=== PATIENT | male | born 1930 | race Caucasian/White ===

== ENCOUNTER 2017-06-12 07:44 | Inpatient (IN) | payer OTHER, BC ==
[2017-06-12 07:59] VITALS: BMI 21.9
[2017-06-12] MEDS ORDERED: SODIUM CHLORIDE 0.9% 1000 ML INFUS.BAG IV STA (08:00)
--- NOTE | 2017-06-12 08:00 | PDOC ---
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 Presented in Afib with RVR and pressures in the high 90s systolic. States that he was at home walking and believes that he tripped because of his right leg shortness. He fell forward and to his left hitting his knee, elbow, head then rolling and hitting the other side of his head. 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 He does admit to increasingly worse SOB over an unknown time period but denies increasing his O2. Denies actual syncope, palpitations, lightheadedness, chest pain, worsened shortness of breath, or recent sick symptoms. Of note, he was scheduled to have his pacemaker battery replacement today at [facility]. PCP: Alicia (switched last month ). Sales Performance Manager is Dr. Reilly.. Pulm is Ruth. 06/12/17 08:14 Past History - Past Medical History Allergies/Adverse Reactions: Allergies Allergy/AdvReac Type Severity Reaction Status Date / Time Penicillins Allergy Intermediate Rash Verified 06/12/17 07:56 Home Medications: Ambulatory Orders Albuterol Sulfate Inhaler - [Ventolin HFA Inhaler -] 2 inh PO Q4H 10/29/13 Tiotropium [place] [Spiriva -] 18 mcg IH DAILY 11/19/14 Dabigatran Etexilate Mesylate [Pradaxa -] 150 mg PO BID 06/12/17 Metoprolol Succinate [Toprol Xl -] 12.5 mg PO BID 06/12/17 Metoprolol Succinate [Toprol Xl -] 25 mg PO HS 06/12/17 Multivit-Min/FA/Lycopen/Lutein [Centrum Silver Tablet] 1 each PO DAILY 06/12/17 Salmeterol/Fluticasone [Advair 100Mcg/50Mcg -] 1 inh PO BID PRN 06/12/17 Cardiac Disorders: Yes (PACEMAKER/DEFIBRILLATOR) COPD: Yes HTN: Yes - Surgical History Cardiac Surgery: Yes (PACEMAKER/DEFIBRILLATOR) Cholecystectomy: Yes - Suicide/Smoking/Psychosocial Hx Smoking Status: Yes Smoking History: Never smoked Have you smoked in the past 12 months: No Number of Cigarettes Smoked Daily: 0 Information on smoking cessation initiated: No Hx Alcohol Use: No Drug/Substance Use Hx: No Substance Use Type: None Hx Substance Use Treatment: No Review of Systems - Review of Systems Constitutional: No: Chills, Diaphoresis, Fever HEENTM: No: Blurred Vision Respiratory: Yes: Shortness of Breath. No: Cough, Wheezing Cardiac (ROS): Yes: Palpitations. No: Chest Pain ABD/GI: No: Diarrhea, Nausea, Vomiting : No: Burning, Dysuria Musculoskeletal: Yes: Back Pain Integumentary: Yes: Bruising, Erythema Neurological: No: Headache, Numbness, Paresthesia *Physical Exam - Vital Signs Last Vital Signs Temp Pulse Resp BP Pulse Ox 123 H 20 81/63 97 06/12/17 07:56 06/12/17 07:56 06/12/17 07:56 06/12/17 07:56 - Physical Exam General Appearance: Yes: Nourished, Appropriately Dressed. No: Apparent Distress HEENT: positive: EOMI, DUGLAS. negative: Normal ENT Inspection (erythema and echymosses in bilateral frontotemporal regions) Neck: positive: Trachea midline, Normal Thyroid, Supple. negative: Tender, Rigid Respiratory/Chest: positive: Crackles (BL lower lung salazar). negative: Chest Tender, Lungs Clear, Normal Breath Sounds, Respiratory Distress, Accessory Muscle Use, Rapid RR Cardiovascular: positive: Irregularly Irregular (Afib with RVR). negative: Regular Rhythm, Regular Rate Gastrointestinal/Abdominal: positive: Normal Bowel Sounds, Flat, Soft. negative : Tender Musculoskeletal: negative: Normal Inspection (Left knee swelling and TTP Left elbow sligfhtly TTP. ) Extremity: positive: Normal Capillary Refill, Normal Range of Motion, Tender ( per above). negative: Normal Inspection (per above) Integumentary: positive: Dry, Warm. negative: Normal Color (bruises per above) Neurologic: positive: railroad watchman II-XII NML intact, Fully Oriented, Alert, Normal Mood/ Affect, Normal Response, Motor Strength 5/5 Heart Score/ECG Review - ECG Intrepretation Rhythm: Irregularly Irregular Comment:: 06/12/17 11:16 afib with rvr to 123 - [place]: Left [place] Deviation ED Treatment Course - LABORATORY CBC & Chemistry Diagram: 06/13/17 05:05 06/13/17 05:05 Medical Decision Making - Medical Decision Making 87 year old male with fall that he states was mechanical but slightly unclear given comorbidities including defribillator and presentation (hypotenisve with afib in RVR). Ct head was negative for bleed, left knee and elbow x ray were also negative for acute bony pathology. Patient's rate dropped to the 70s after 2 of morphine for his knee, 1 L NS, and 5 of diltiazem. Patient's chest X ray returned with possible RLL infiltrate which may also explain the fall or the afib w RVR leading to the fall. Patient given 1 g of meropenem because of penicllin allergy. Patient discussed with Dr. Boucher (covering for [facility]) and will be admitted for PNA treatment and further workup for syncope. 06/12/17 11:20 *DC/Admit/Observation/Transfer Diagnosis at time of Disposition: PNA (pneumonia) Qualifiers: Pneumonia type: due to unspecified organism Laterality: right Lung location: lower lobe of lung Qualified Code(s): J18.1 - Lobar pneumonia, unspecified organism Fall Qualifiers: Encounter type: initial encounter Qualified Code(s): W19.XXXA - Unspecified fall, initial encounter Afib Qualifiers: Atrial fibrillation type: unspecified Qualified Code(s): I48.91 - Unspecified atrial fibrillation - Discharge Dispostion Condition at time of disposition: Improved Admit: Yes - Referrals - Patient Instructions - Post Discharge Activity
[2017-06-12 08:40] LABS: BASO % 0.9 % (0-2.0); EOS % 5.4 % (0-4.5); MCH 32.5 pg (25.7-33.7); MCHC 33.3 g/dl (32.0-35.9); MEAN CELL VOLUME 97.6 fl (80-96); NEUT % 69.4 % (42.8-82.8); PLATELET COUNT 211 K/MM3 (134-434); RDW 13.9 % (11.9-15.9); WHITE BLOOD COUNT 6.9 K/mm3 (4.0-10.0)
[2017-06-12 08:51] LABS: VENOUS PH 7.37 (7.32-7.42)
[2017-06-12 08:52] LABS: VENOUS BLOOD GAS HCO3 24.9 meq/L (19-25)
[2017-06-12 08:58] LABS: INR 1.34 (0.82-1.09); PROTHROMBIN TIME (PATIENT) 15.1 SEC (9.98-11.88)
[2017-06-12 09:01] LABS: ACTIVATED PTT 54.1 SECONDS (26.9-34.4)
[2017-06-12 09:09] LABS: ALBUMIN 3.8 g/dl (3.4-5.0); ANION GAP 9 (8-16); BILIRUBIN,TOTAL 0.9 mg/dL (0.2-1.0); CO2 27 mmol/L (21-32); CREATININE 1.3 mg/dL (0.7-1.3); GLUCOSE,RANDOM 126 mg/dL (74-106); SGOT/AST 17 U/L (15-37); SGPT/ALT 14 U/L (12-78); TOT PROT 8.4 g/dl (6.4-8.2)
[2017-06-12 09:11] LABS: ALK PHOS 82 U/L (45-117); CPK 84 IU/L (39-308); TROPONIN I 0.02 ng/ml (0.00-0.05)
[2017-06-12] MEDS ORDERED: ACETAMINOPHEN 500 MG TABLET (FP) PO ONE (09:16)
[2017-06-12] MEDS ORDERED: dilTIAZem HCL 50 MG/10 ML - 10 ML VIAL IVPUSH ONE (09:17)
[2017-06-12] MEDS ORDERED: MEROPENEM 1,000 MG in DEXTROSE 5%-WATER - 100 ML IVPB ONE (09:25)
--- NOTE | 2017-06-12 09:28 | PDOC ---
Attending Attestation - HPI HPI: 06/12/17 09:29 Patient is a 87 year old male with a significant past medical history of pacemaker/defibrillator, COPD, hypertension and cholecystectomy who was brought by EMS to the ED with complaints of left knee pain s/p fall that occured this morning. Patient reports walking in house when he tripped and fell landing on his left elbow and left knee. Patient reports left knee pain secondary to fall. Patient denies any loss of consciousness but states he hit the left side of his head followed by the right side after falling. Patient reports yelling for help immediately after falling and states he was heard by a neighbor. Patient reports having congenital condition where his right leg is 1 to 2 inches shorter than his left side as well as general weakness on his right side , stating its a defect. Denies loss of consciousness. Denies chest pain. Denies nausea, vomiting. Denies fever, chills. Denies any other symptoms. Allergies: Penicillins Social history: Former smoker. No alcohol. No illicit drugs. Surgical history: Pacemaker/Defibrillator PMD: None Puppy Walker : Dr. Reilly - Physicial Exam PE: 06/12/17 09:29 Vitals: Triage Vital signs reviewed General Appearance: no acute distress, well nourished well developed Head: Atraumatic Chest Wall: Nontender Cardiac: +irregularly irregular. Regular rate and rhythm, no murmurs, no rubs, no gallops Lungs: +Crackles at base bilaterally. good air movement bilaterally Abdomen: Soft, non distended, normal bowel sounds, non tender to palpation Extremities: +Left knee edema. +Abrasion to left elbow. Full range of motion to all extremities, no cyanosis, clubbing, Skin: Warm and dry, no rashes or lesions, no rash, no petechiae Neuro: AOX3; Cranial Nerves 2-12 grossly intact, Strength intact to all extremities, Sensation intact to all extremities Psych: Normal mood, normal affect - Medical Decision Making 06/12/17 09:29 Documentation prepared by Arturo Mathias, acting as medical delivery driver for Kong Torres MD, /DO. <Arturo Mathias - Last Filed: 06/12/17 09:59> - Resident Resident Name: Yulisa Montelongo - ED Attending Attestation I have performed the following: I have examined & evaluated the patient, The case was reviewed & discussed with the resident, I agree w/resident's findings & plan, Exceptions are as noted - Critical Care Time Total Critical Care Time: 45 Critical Care Statement: The care of this patient involved high complexity decision making to prevent further life threatening deterioration of the patient 's condition and/or to evaluate & treat vital organ system(s) failure or risk of failure. - Medical Decision Making 87 years old presented to the emergency department with fall head injury found to be tachycardic hypotensive at triage noted to be in A. fib with RVR 30 mL per kg IV fluids ordered vitals began to normalize IV diltiazem use for rate control Chest x-ray demonstrated pneumonia given penicillin ALLERGY patient covered with meropenem After IV diltiazem and IV fluids heart rate now 78 blood pressure 120 systolic Patient stable for admission for further management of A. fib with RVR, hypertension, pneumonia <Kong Torres - Last Filed: 06/12/17 14:17> Heart Score/ECG Review - ECG Intrepretation Comment:: 06/12/17 10:00 EKG performed at [7:58:01] demonstrates rate of [123 bmp], rhythm of [Atrial fibrillation with rapid ventricular response], axis equal to [left axis deviation]. Additional findings include: [Afib and RVR]. no T wave inversions, no ST elevations <Arturo Mathias - Last Filed: 06/12/17 09:59>
[2017-06-12] MEDS ORDERED: MEROPENEM 1 GM PUSH 1 GM/20 ML DISP.SYRIN IVPUSH ONE (09:45)
[2017-06-12] MEDS ORDERED: ACETAMINOPHEN 325 MG TABLET (FP) ONE (10:16)
[2017-06-12] MEDS ORDERED: dilTIAZem HCL 125 MG/25 ML - 25 ML VIAL ONE (10:16)
[2017-06-12 12:19] LABS: URINE APPEARANCE CLEAR; URINE BILIRUBIN NEGATIVE (NEGATIVE); URINE BLOOD 1+ (NEGATIVE); URINE COLOR YELLOW; URINE GLUCOSE (UA) NEGATIVE (NEGATIVE); URINE KETONE NEGATIVE (NEGATIVE); URINE LEUK ESTERASE NEGATIVE (NEGATIVE); URINE NITRITE NEGATIVE (NEGATIVE); URINE PROTEIN NEGATIVE (NEGATIVE); URINE UROBILINOGEN NEGATIVE mg/dL (0.2-1.0)
[2017-06-12 12:45] LABS: URINE HYALINE CAST 2 /lpf; URINE MUCUS RARE; URINE RBC <1 /hpf (0-3); URINE WBC <1 /hpf (3-5)
--- NOTE | 2017-06-12 13:09 | HP ---
Admitting History and Physical - Primary Care Physician PCP: Lizy Vargas - Admission History of Present Illness: 87-year-old male with PMH of congenital right sided malformation (shortened R leg and weakend RUE), pacemaker/defibrillator (on pradaxa), COPD (on home O2 2L ), hypertension and cholecystectomy presenting after falling at home and hitting his head. States that he was at home walking and believes that he tripped because of his right leg shortness. He fell forward and to his left hitting his knee, elbow, head then rolling and hitting the other side of his head. per patient he got dizzy and fell and hit his head. 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 He does admit to increasingly worse SOB over an unknown time period but denies increasing his O2. Denies actual syncope, palpitations, lightheadedness, chest pain, worsened shortness of breath , or recent sick symptoms. Of note, he was scheduled to have his pacemaker battery replacement today at [facility]. PCP: Alicia (switched last month). History Source: Patient, Family Member, Medical Record - Past Medical History Cardiovascular: Yes: HTN, Other (s/p ppm/aicd.) Pulmonary: Yes: COPD, Pulmonary Fibrosis - Smoking History Smoking history: Never smoked Have you smoked in the past 12 months: No Aproximately how many cigarettes per day: 0 - Alcohol/Substance Use Hx Alcohol Use: No Home Medications - Allergies Allergies/Adverse Reactions: Allergies Allergy/AdvReac Type Severity Reaction Status Date / Time Penicillins Allergy Intermediate Rash Verified 06/12/17 07:56 - Home Medications Home Medications: Ambulatory Orders Dabigatran Etexilate Mesylate [Pradaxa -] 150 mg PO BID #0 cap 03/20/12 Albuterol Sulfate Inhaler - [Ventolin HFA Inhaler -] 2 inh PO Q4H 10/29/13 Tiotropium [place] [Spiriva -] 18 mcg IH DAILY 11/19/14 Dabigatran Etexilate Mesylate [Pradaxa -] 150 mg PO BID 06/12/17 Multivit-Min/FA/Lycopen/Lutein [Centrum Silver Tablet] 1 each PO DAILY 06/12/17 Salmeterol/Fluticasone [Advair 100Mcg/50Mcg -] 1 inh PO BID 06/12/17 Review of Systems - Review of Systems Musculoskeletal: reports: Joint Pain (knee pain) Integumentary: reports: Bruising, Wound (on left elbow) Physical Examination Vital Signs: Vital Signs Temperature 97.3 F L 06/12/17 09:17 Pulse Rate 89 06/12/17 11:34 Respiratory Rate 18 06/12/17 11:34 Blood Pressure 107/81 06/12/17 11:34 O2 Sat by Pulse Oximetry (%) 97 06/12/17 11:44 Constitutional: Yes: Calm, Thin Cardiovascular: Yes: Regular Rate and Rhythm, S1, S2 Respiratory: Yes: CTA Bilaterally, Diminished (at bases) Gastrointestinal: Yes: Normal Bowel Sounds, Soft Extremities: Yes: Other (abrasion on shoulder and skin tear on left elbow) Edema: No Labs: CBC, BMP 06/12/17 08:25 06/12/17 08:25 Imaging - Results Chest X-ray: Report Reviewed X-ray: Report Reviewed Cat Scan: Report Reviewed Problem List - Problems (1) Pre-syncope Assessment/Plan: tele carotid doppler echo cardiology evaluation noted orthostatic vitals per patient family member he is supposed to get ppm battery check done as outpatient Code(s): R55 - SYNCOPE AND COLLAPSE (2) Chronic anticoagulation Assessment/Plan: on pradaxa afib Code(s): Z79.01 - ALF (CURRENT) USE OF ANTICOAGULANTS (3) Diastolic 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
--- NOTE | 2017-06-12 13:51 | CON.CARD ---
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 - History Source History Provided By: Patient Limitations to Obtaining History: No Limitations - Past Medical History Cardio/Vascular: Yes: AFIB, HTN, Other (s/p ppm/aicd.) Pulmonary: Yes: COPD, Pulmonary Fibrosis - Past Surgical History Past Surgical History: Yes: Permanent Pacemaker - Alcohol/Substance Use Hx Alcohol Use: No - Smoking History Smoking history: Never smoked Have you smoked in the past 12 months: No Aproximately how many cigarettes per day: 0 Home Medications - Allergies Allergies/Adverse Reactions: Allergies Allergy/AdvReac Type Severity Reaction Status Date / Time Penicillins Allergy Intermediate Rash Verified 06/12/17 07:56 - Home Medications Home Medications: Ambulatory Orders Dabigatran Etexilate Mesylate [Pradaxa -] 150 mg PO BID #0 cap 03/20/12 Albuterol Sulfate Inhaler - [Ventolin HFA Inhaler -] 2 inh PO Q4H 10/29/13 Tiotropium [place] [Spiriva -] 18 mcg IH DAILY 11/19/14 Dabigatran Etexilate Mesylate [Pradaxa -] 150 mg PO BID 06/12/17 Multivit-Min/FA/Lycopen/Lutein [Centrum Silver Tablet] 1 each PO DAILY 06/12/17 Salmeterol/Fluticasone [Advair 100Mcg/50Mcg -] 1 inh PO BID 06/12/17 Review of Systems - Review of Systems Neurological: reports: Dizziness, Syncope Vital Signs: Vital Signs Temperature 97.3 F L 06/12/17 09:17 Pulse Rate 89 06/12/17 11:34 Respiratory Rate 18 06/12/17 11:34 Blood Pressure 107/81 12/11/17 11:34 O2 Sat by Pulse Oximetry (%) 97 06/12/17 11:44 Constitutional: Yes: No Distress, Calm Neck: Yes: Supple Respiratory: Yes: Regular, Diminished, On Nasal O2 Gastrointestinal: Yes: Normal Bowel Sounds, Soft Cardiovascular: Yes: Tachycardia, Pulse Irregular JVD: No Carotid Bruit: No Heart Sounds: Yes: S1, S2 Murmur: Yes: Systolic Murmur, Grade 1 Edema: No - Other Data Labs, Other Data: CBC, BMP 06/12/17 08:25 06/12/17 08:25 INR, PTT INR 1.34 (0.82-1.09) H D 06/12/17 08:25 Troponin, BNP 06/12/17 08:25 Troponin I 0.02 B-Natriuretic Peptide 644.47 H Troponin, BNP 06/12/17 08:25 Troponin I 0.02 B-Natriuretic Peptide 644.47 H Afib@123, LAD with nonspec ST changes compared to previous showing NSR 1st deg avb nonspec ST changes Imaging - Results Cat Scan: Report Reviewed (HCT: No bleed) Problem List - Problems (1) Diastolic dysfunction without heart failure Code(s): I51.9 - HEART DISEASE, UNSPECIFIED (2) COPD (chronic obstructive pulmonary disease) Code(s): J44.9 - CHRONIC OBSTRUCTIVE PULMONARY DISEASE, UNSPECIFIED Qualifiers: COPD type: unspecified COPD Qualified Code(s): J44.9 - Chronic obstructive pulmonary disease, unspecified (3) Dizziness Code(s): R42 - DIZZINESS AND GIDDINESS (4) Paroxysmal atrial fibrillation Code(s): I48.0 - PAROXYSMAL ATRIAL FIBRILLATION (6) Chronic anticoagulation Code(s): Z79.01 - JAIL (CURRENT) USE OF ANTICOAGULANTS Assessment/Plan 1. s/p fall possible syncope, recurrent paroxysmal atrial fibrillation with RVR 2. s/p Medtronic ICD for ventricular arrhythmia at [employer] with monitoring functions suspended 3. HTN/HCVD 4. LV diastolic dysfunction 5. 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 Gout P:1. Echocardiogram to assess ventricular and valve fxn 2. Check orthostasis, patient to follow-up with Dr. Man for generator change as outpatient 3. Continue Pradaxa 150 bid, resume Toprol XL 25 bid 4. Thank you for consultative opportunity
[2017-06-12] MEDS ORDERED: BACITRACIN 0.9 GM PACKET ONE (14:25)
--- NOTE | 2017-06-12 14:54 | EKG ---
Test Reason : Blood Pressure : / mmHG Vent. Rate : 123 BPM Atrial Rate : 133 BPM P-R Int : 000 ms QRS Dur : 090 ms QT Int : 300 ms P-R-T Axes : 000 -50 050 degrees QTc Int : 429 ms ATRIAL FIBRILLATION WITH RAPID VENTRICULAR RESPONSE LEFT AXIS DEVIATION NONSPECIFIC ST ABNORMALITY ABNORMAL ECG WHEN COMPARED WITH ECG OF 19-NOV-2014 10:21, Confirmed by SWAPNA MEADE MD ([id number]) on 06/12/2017 2:53:46 PM Referred By: Confirmed By:SWAPNA MEADE MD
[2017-06-12] MEDS ORDERED: METOPROLOL SUCCINATE 50 MG TAB.SR.24H (FP) ONE (14:57)
[2017-06-12] MEDS: METOPROLOL SUCCINATE 25 MG TAB.SR.24H (FP) PO SCH ×2 (14:58→22:16)
[2017-06-12 16:39] LABS: URINE LEUK ESTERASE NEGATIVE (NEGATIVE)
[2017-06-12] MEDS: DABIGATRAN ETEXILATE MESYLATE 150 MG CAPSULE PO SCH (22:16)
[2017-06-12] MEDS: BACITRACIN 15 GM TUBE TOPICAL OINTMENT TP SCH (22:17)
[2017-06-13 07:29] LABS: BASO % 0.7 % (0-2.0); MCH 32.5 pg (25.7-33.7); MCHC 33.5 g/dl (32.0-35.9); MEAN CELL VOLUME 97.1 fl (80-96); MEAN PLT VOLUME 8.4 fl (7.5-11.1); NEUT % 69.2 % (42.8-82.8); PLATELET COUNT 152 K/MM3 (134-434); RDW 14.1 % (11.9-15.9); WHITE BLOOD COUNT 5.9 K/mm3 (4.0-10.0)
[2017-06-13 07:55] LABS: ALBUMIN 2.8 g/dl (3.4-5.0); ANION GAP 6 (8-16); CALCIUM 7.7 mg/dL (8.5-10.1); CO2 27 mmol/L (21-32); GLUCOSE,RANDOM 85 mg/dL (74-106); MAGNESIUM 1.7 mg/dL (1.8-2.4)
[2017-06-13 07:58] LABS: ALK PHOS 62 U/L (45-117); BILIRUBIN,TOTAL 0.9 mg/dL (0.2-1.0); CHOLESTEROL 118 mg/dL (50-200); CPK 119 IU/L (39-308); CREATININE 0.9 mg/dL (0.7-1.3); SGOT/AST 15 U/L (15-37); SGPT/ALT 12 U/L (12-78); TOT PROT 6.2 g/dl (6.4-8.2); TROPONIN I 0.05 ng/ml (0.00-0.05)
--- NOTE | 2017-06-13 08:28 | PN ---
Progress Note, Physician - Current Medication List Current Medications: Active Medications Bacitracin (Bacitracin -) 1 applic TP BID [facility] Last Admin: 06/12/17 22:17 Dose: 1 applic Dabigatran (Pradaxa -) 150 mg PO BID [facility] Last Admin: 06/12/17 22:16 Dose: 150 mg Metoprolol Succinate (Toprol Xl -) 25 mg PO BID [facility] Last Admin: 06/12/17 22:16 Dose: 25 mg Tiotropium [place] (Spiriva -) 1 puff IH DAILY [facility] - Objective Vital Signs: Vital Signs Temperature 98.3 F 06/13/17 06:00 Pulse Rate 60 06/13/17 06:00 Respiratory Rate 20 06/13/17 06:00 Blood Pressure 128/66 06/13/17 06:00 O2 Sat by Pulse Oximetry (%) 100 06/12/17 21:00 Cardiovascular: Yes: S1, S2 Respiratory: Yes: Regular, CTA Bilaterally Gastrointestinal: Yes: Normal Bowel Sounds, Soft Labs: CBC, BMP 06/13/17 05:05 06/13/17 05:05 INR, PTT INR 1.34 (0.82-1.09) H D 06/12/17 08:25 Assessment/Plan - Problems (1) Pre-syncope Assessment/Plan: tele carotid doppler echo cardiology evaluation noted orthostatic vitals per patient family member he is supposed to get ppm battery check done as outpatient Code(s): R55 - SYNCOPE AND COLLAPSE (2) Chronic anticoagulation Assessment/Plan: on pradaxa afib Code(s): Z79.01 - SNF (CURRENT) USE OF ANTICOAGULANTS (3) Diastolic 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
[2017-06-13] MEDS: BACITRACIN 15 GM TUBE TOPICAL OINTMENT TP SCH ×2 (09:29→22:00)
[2017-06-13] MEDS: DABIGATRAN ETEXILATE MESYLATE 150 MG CAPSULE PO SCH ×2 (09:29→21:59)
[2017-06-13] MEDS: METOPROLOL SUCCINATE 25 MG TAB.SR.24H (FP) PO SCH ×2 (09:29→21:59)
--- NOTE | 2017-06-13 10:48 | PN ---
Progress Note, Physician Chief Complaint: Events noted Resting comfortable this am History of Present Illness: Patient was seen and examined. Awake an alert. Chart was reviewed Denies chest pain or palpitations ICD interrogated recently in the office and is awaiting generator change with Dr. Osvaldo Gaston of [facility] - Current Medication List Current Medications: Active Medications Bacitracin (Bacitracin -) 1 applic TP BID [facility] Last Admin: 06/13/17 09:29 Dose: 1 applic Dabigatran (Pradaxa -) 150 mg PO BID [facility] Last Admin: 06/13/17 09:29 Dose: 150 mg Metoprolol Succinate (Toprol Xl -) 25 mg PO BID [facility] Last Admin: 06/13/17 09:29 Dose: 25 mg Tiotropium [place] (Spiriva -) 1 puff IH DAILY [facility] - Objective Vital Signs: Vital Signs Temperature 98.3 F 06/13/17 06:00 Pulse Rate 60 06/13/17 06:00 Respiratory Rate 20 06/13/17 06:00 Blood Pressure 128/66 06/13/17 06:00 O2 Sat by Pulse Oximetry (%) 100 06/12/17 21:00 Constitutional: Yes: No Distress Eyes: Yes: PERRL HENT: Yes: Atraumatic Neck: Yes: Supple Cardiovascular: Yes: Pulse Irregular, Murmur (Soft SM), S1, S2 Respiratory: Yes: Diminished, Rhonchi Gastrointestinal: Yes: Normal Bowel Sounds, Soft. No: Tenderness Edema: No Additional Findings/Remarks: - Review of Systems Constitutional: denies: Weakness. denies: Chills, Fever Cardiovascular: (+) Shortness of Breath, denies: Chest Pain, Palpitations Respiratory: denies: SOB, denies: Cough, Hemoptysis, Orthopnea, PND Gastrointestinal: denies: Abdominal Pain, Constipation, Diarrhea, Melena, Nausea , Rectal Bleeding, Vomiting Musculoskeletal: denies: Joint Pain Neurological: denies: Weakness. denies: Confusion, Dizziness, Headache, Seizure , (+)Syncope Labs: CBC, BMP 06/13/17 05:05 06/13/17 05:05 INR, PTT INR 1.34 (0.82-1.09) H D 06/12/17 08:25 - ....Imaging Chest X-ray: Report Reviewed Problem List - Problems (1) Diastolic dysfunction without heart failure Code(s): I51.9 - HEART DISEASE, UNSPECIFIED (2) PNA (pneumonia) Code(s): J18.9 - PNEUMONIA, UNSPECIFIED ORGANISM Qualifiers: Pneumonia type: due to unspecified organism Laterality: right Lung location: lower lobe of lung Qualified Code(s): J18.1 - Lobar pneumonia, unspecified organism (3) Syncope Code(s): R55 - SYNCOPE AND COLLAPSE Qualifiers: Syncope type: unspecified Qualified Code(s): R55 - Syncope and collapse (5) COPD (chronic obstructive pulmonary disease) Code(s): J44.9 - CHRONIC OBSTRUCTIVE PULMONARY DISEASE, UNSPECIFIED Qualifiers: COPD type: unspecified COPD Qualified Code(s): J44.9 - Chronic obstructive pulmonary disease, unspecified (6) Cerebrovascular disease Code(s): I67.9 - CEREBROVASCULAR DISEASE, UNSPECIFIED (7) Interstitial lung disease Code(s): J84.9 - INTERSTITIAL PULMONARY DISEASE, UNSPECIFIED (8) Paroxysmal atrial fibrillation Code(s): I48.0 - PAROXYSMAL ATRIAL FIBRILLATION (9) Renal insufficiency Code(s): N28.9 - DISORDER OF KIDNEY AND URETER, UNSPECIFIED Assessment/Plan 1. Post fall possible syncope, recurrent paroxysmal atrial fibrillation with RVR 2. Post Medtronic ICD for ventricular arrhythmia at [facility] with monitoring functions suspended 3. HTN/HCVD 4. LV diastolic dysfunction 5. 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 Gout PLAN: 1. Transthoracic echocardiography to assess LV/RV and valvular function 2. Check orthostasis and patient to follow-up with Dr. Man for generator change as outpatient 3. Continue Pradaxa 150 bid and Toprol XL [address] Keith regarding Mr. Beatty's clinical status and possibility of LV failure. Patient has underlying ILD with pulmonary infiltrates on CXR. Chest CT pending Further plans are to follow Mono Reilly MD
[2017-06-13] MEDS: TIOTROPIUM BROMIDE 18 MCG/INH (DEVICE W/ 5 CAPSULES) IH SCH (11:31)
--- NOTE | 2017-06-13 12:01 | PN ---
Progress Note (short form) - Note Progress Note: PULMONARY CONSULTATION DICTATED 06/13/17 IMP DYSPNEA COPD EXACERBATION ILD DIASTOLIC HF ? RLL INFILTRATE EXTENSIVE PLEURAL/DIAPHRAGMATIC CALCIFICATIONS AFIB WITH RVR H/O VENTRICULAR ARRHYTHMIAS S/P ICD PLAN ANTIBIOTICS CULTURES INHALED BRONCHODILATORS O2 ? LASIX RATE CONTROL PER CARDIOLOGY CHEST CT DR ZAMORANO Problem List - Problems (1) Chronic anticoagulation Code(s): Z79.01 - SENIOR COMPENSATION ANALYST (CURRENT) USE OF ANTICOAGULANTS (2) Diastolic dysfunction without heart failure Code(s): I51.9 - HEART DISEASE, UNSPECIFIED (3) Fall Code(s): W19.XXXA - UNSPECIFIED FALL, INITIAL ENCOUNTER (4) Pre-syncope Code(s): R55 - SYNCOPE AND COLLAPSE (5) COPD (chronic obstructive pulmonary disease) Code(s): J44.9 - CHRONIC OBSTRUCTIVE PULMONARY DISEASE, UNSPECIFIED Qualifiers: COPD type: unspecified COPD Qualified Code(s): J44.9 - Chronic obstructive pulmonary disease, unspecified (6) Dizziness Code(s): R42 - DIZZINESS AND GIDDINESS (7) Interstitial lung disease Code(s): J84.9 - INTERSTITIAL PULMONARY DISEASE, UNSPECIFIED (8) Syncope Code(s): R55 - SYNCOPE AND COLLAPSE
[2017-06-13] MEDS: LEVOFLOXACIN 500 MG IVPB 500 MG/100 ML BAG IVPB SCH (13:11)
--- NOTE | 2017-06-13 14:22 | CONS ---
PULMONARY CONSULTATION DATE OF CONSULTATION: 06/13/2017 REFERRING PHYSICIAN: Citlaly Servin MD HISTORY OF PRESENT ILLNESS: The patient is an 87-year-old white male with past medical history of advanced COPD on home O2, hypertension, history of atrial fibrillation, and history of pacemaker/defibrillator, likely interstitial lung disease, diaphragmatic calcifications, atrial fibrillation, ventricular arrhythmias, gout, LV dysfunction, cholecystectomy, admitted to [facility] status post possible syncopal episode. Patient states he was in his kitchen, turned, and fell to the floor. He denied any chest pain, nausea, vomiting, or diaphoresis. Denied any fever. Denied any hemoptysis. Denies chest pain, palpitations. He is unsure of whether or not he lost consciousness. He states that he had lightheadedness prior to that episode. He presented to the emergency room with the above on admission. He was evaluated in the emergency room where he was noted to be in rapid atrial fibrillation with rapid ventricular response. He was evaluated by Dr. Paula for cardiology consultation. Of note is that patient has been complaining of increasing shortness of breath with exertion. He states that he gets severely dyspneic walking a couple of steps. Denies any hemoptysis. He denies any chest pain. He states that his symptoms are getting progressively worse over the past 6 months. He underwent a chest x-ray on this admission, which revealed possible right lower lobe infiltrate superimposed upon chronic interstitial disease. Patient has a history of tobacco use. He quit years ago. He is unsure whether or not he has a history of asbestos exposure. He thinks he might have been but is unsure when. He states he did not work directly with asbestos. 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 REVIEW OF SYSTEMS: Positive orthopnea, positive dyspnea on exertion. No chest pain. No palpations. He does have cough productive of yellow-green sputum. No hemoptysis. CURRENT MEDICATIONS: Include bacitracin, Pradaxa, Spiriva, and Toprol. PHYSICAL EXAMINATION: General: The patient is an elderly white male, thin, well-developed, awake, alert, appears in no acute distress. He is currently afebrile. Blood pressure is 116/73, respiratory rate is 18, O2 saturation 100% on 2 L. HEENT: Normocephalic, atraumatic. Neck: Supple. HEART: Irregular. S1, S2. Chest: bilateral crackles throughout. Abdomen: Soft. Bowel sounds are positive. Extremities: No signs of edema. INR is 1.34. Chemistries: BUN is 15, creatinine 0.9. Lactate level on admission was 3.8. BNP on admission was 644. A followup today is 1289. WBC is 5.9, hemoglobin 12.1, hematocrit 36, platelet count of 152,000. Venous blood gas: 7.37, pCO2 of 44, pO2 of 33, a bicarbonate of 24. Chest x-ray reveals increased pulmonary vascular congestion bilaterally. There are extensive pleural calcifications, possible superimposed right lower lobe infiltrate. Carotid Dopplers: Moderate atherosclerotic heart disease. No evidence of hemodynamically significant stenosis. IMPRESSION: 1. Dyspnea, likely secondary to multiple factors. A. Advanced chronic obstructive pulmonary disease/interstitial lung disease. 2. possible congestive heart failure, possibly secondary to rapid atrial fibrillation. 3. Right lower lobe infiltrate. 4. Paroxysmal atrial fibrillation with rapid ventricular response. 5. Diaphragmatic and pleural calcifications. 6. Left ventricular diastolic dysfunction. PLAN: Inhaled bronchodilators, supplemental O2, steroids, obtain CT scan of the chest, antibiotic therapy, rate control as per Cardiology, consider Lasix. GUSTABO ZAMORANO M.D. SORAYA/[id number]
--- NOTE | 2017-06-14 09:15 | PN ---
Progress Note, Physician History of Present Illness: C/O DIZZINESS NO CP - Current Medication List Current Medications: Active Medications Bacitracin (Bacitracin -) 1 applic TP BID [facility] Last Admin: 06/13/17 22:00 Dose: 1 applic Dabigatran (Pradaxa -) 150 mg PO BID [facility] Last Admin: 06/13/17 21:59 Dose: 150 mg Levofloxacin (Levaquin 500 Mg Premixed Ivpb -) 500 mg in 100 mls @ 100 mls/hr IVPB DAILY [facility] Last Admin: 06/13/17 13:11 Dose: 100 mls/hr Tiotropium [place] (Spiriva -) 1 puff IH DAILY [facility] Last Admin: 06/13/17 11:31 Dose: 1 puff - Objective Vital Signs: Vital Signs Temperature 97.6 F 06/14/17 08:00 Pulse Rate 75 06/14/17 09:02 Respiratory Rate 18 06/14/17 08:00 Blood Pressure 126/72 06/14/17 09:02 O2 Sat by Pulse Oximetry (%) 100 06/13/17 22:00 Cardiovascular: Yes: S1, S2 Respiratory: Yes: Regular, CTA Bilaterally Gastrointestinal: Yes: Normal Bowel Sounds, Soft Labs: CBC, BMP 06/13/17 05:05 06/13/17 05:05 INR, PTT INR 1.34 (0.82-1.09) H D 06/12/17 08:25 Assessment/Plan - Problems (1) Pre-syncope Assessment/Plan: tele carotid doppler echo cardiology evaluation noted orthostatic vitals--ABNORMAL V Selected Entries 06/14/17 09:02 Blood Pressure 96/60 [Left side Sitting] Blood Pressure 84/46 [Left side Standing] Blood Pressure 126/72 [Left side Supine] per patient family member he is supposed to get ppm battery check done as outpatient Code(s): R55 - SYNCOPE AND COLLAPSE (2) Chronic anticoagulation Assessment/Plan: on pradaxa afib Code(s): Z79.01 - PENITENTIARY (CURRENT) USE OF ANTICOAGULANTS (3) Diastolic 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 (7) Orthostatic hypotension Assessment/Plan: DECREASE TOPROL 12.5 BID MONITOR BP AND HR CHECK LABS
[2017-06-14] MEDS: DABIGATRAN ETEXILATE MESYLATE 150 MG CAPSULE PO SCH ×2 (09:38→22:47)
[2017-06-14] MEDS: TIOTROPIUM BROMIDE 18 MCG/INH (DEVICE W/ 5 CAPSULES) IH SCH (09:39)
[2017-06-14] MEDS: LEVOFLOXACIN 500 MG IVPB 500 MG/100 ML BAG IVPB SCH (09:47)
[2017-06-14] MEDS: BACITRACIN 15 GM TUBE TOPICAL OINTMENT TP SCH ×2 (09:56→22:47)
--- NOTE | 2017-06-14 10:15 | PN ---
Progress Note, Physician History of Present Illness: Reports positional dizziness, orthostatic VS noted, Toprol dose decreased. - Current Medication List Current Medications: Active Medications Bacitracin (Bacitracin -) 1 applic TP BID [facility] Last Admin: 06/14/17 09:56 Dose: 1 applic Dabigatran (Pradaxa -) 150 mg PO BID [facility] Last Admin: 06/14/17 09:38 Dose: 150 mg Levofloxacin (Levaquin 500 Mg Premixed Ivpb -) 500 mg in 100 mls @ 100 mls/hr IVPB DAILY [facility] Last Admin: 06/14/17 09:47 Dose: 100 mls/hr Metoprolol Succinate (Toprol Xl -) 12.5 mg PO BID [facility] Tiotropium [place] (Spiriva -) 1 puff IH DAILY [facility] Last Admin: 06/14/17 09:39 Dose: 1 puff - Objective Vital Signs: Vital Signs Temperature 97.6 F 06/14/17 08:00 Pulse Rate 75 06/14/17 09:02 Respiratory Rate 18 06/14/17 08:00 Blood Pressure 126/72 06/14/17 09:02 O2 Sat by Pulse Oximetry (%) 100 06/13/17 22:00 Constitutional: Yes: No Distress, Calm Neck: Yes: Supple Cardiovascular: Yes: Regular Rate and Rhythm, Murmur (2/6 SM) Respiratory: Yes: Regular, Diminished, On Nasal O2 Gastrointestinal: Yes: Normal Bowel Sounds, Soft Edema: No Labs: CBC, BMP 06/13/17 05:05 06/13/17 05:05 INR, PTT INR 1.34 (0.82-1.09) H D 06/12/17 08:25 - ....Imaging EKG: Report Reviewed (Tele: PAF) Problem List - Problems (1) Diastolic dysfunction without heart failure Code(s): I51.9 - HEART DISEASE, UNSPECIFIED (2) COPD (chronic obstructive pulmonary disease) Code(s): J44.9 - CHRONIC OBSTRUCTIVE PULMONARY DISEASE, UNSPECIFIED Qualifiers: COPD type: unspecified COPD Qualified Code(s): J44.9 - Chronic obstructive pulmonary disease, unspecified (3) Paroxysmal atrial fibrillation Code(s): I48.0 - PAROXYSMAL ATRIAL FIBRILLATION (5) Chronic anticoagulation Code(s): Z79.01 - E COMMERCE MARKETING MANAGER (CURRENT) USE OF ANTICOAGULANTS (6) Pulmonary hypertension Code(s): I27.20 - PULMONARY HYPERTENSION, UNSPECIFIED (7) Pre-syncope Code(s): R55 - SYNCOPE AND COLLAPSE Assessment/Plan 06/13/2017 Echo: Borderline cLVH, normal LV size and fxn, mod-severe TR, mod AR , mild MR 1. Post fall possible syncope, recurrent paroxysmal atrial fibrillation with RVR and orthostasis 2. Post Medtronic ICD for ventricular arrhythmia at [facility] with monitoring functions suspended 3. HTN/HCVD 4. LV diastolic dysfunction 5. 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 Gout PLAN: 1. Addresed abortive maneuvers once prodromal sxs experienced 2. Patient to follow-up with Dr. Man for generator change as outpatient 3. Continue Pradaxa 150 bid, decreased Toprol XL 12.5 bid 4. D/c telemetry
[2017-06-14 10:22] LABS: BASO % 0.6 % (0-2.0); MCH 32.3 pg (25.7-33.7); MCHC 33.2 g/dl (32.0-35.9); MEAN CELL VOLUME 97.1 fl (80-96); MEAN PLT VOLUME 8.1 fl (7.5-11.1); NEUT % 68.3 % (42.8-82.8); PLATELET COUNT 184 K/MM3 (134-434); WHITE BLOOD COUNT 7.6 K/mm3 (4.0-10.0)
[2017-06-14] MEDS: METOPROLOL SUCCINATE 25 MG TAB.SR.24H (FP) PO SCH ×2 (10:49→22:48)
--- NOTE | 2017-06-14 11:21 | PN ---
Progress Note (short form) - Note Progress Note: PULMONARY AWAKE/ALERT WELL KNOWN BY OUR SERVICE VSS/AFEBRILE PALE/ANICTERIC SCATTERED CRACKLES BILATERAL S1S2 IRREGULAR BS+ RIGHT HEMIPARESIS K 3.7 BUN 15 HGB 13.9 WBC 7.6 ECHO NOTED RVSP 76 /TR /NO MICRO/IMAGES/NOTES REVIEWED IMP SYNCOPE/ORTHOSTATIC CHANGES COPD EXACERBATION ILD/ASBESTOS DIASTOLIC HF ? RLL INFILTRATE EXTENSIVE PLEURAL/DIAPHRAGMATIC CALCIFICATIONS AFIB WITH RVR H/O VENTRICULAR ARRHYTHMIAS S/P ICD PLAN ANTIBIOTICS INHALED BRONCHODILATORS O2 RATE CONTROL PER CARDIOLOGY BETA KATHLEEN ADJUSTED Brendan LEWIS MD
[2017-06-14 11:23] LABS: ALBUMIN 3.3 g/dl (3.4-5.0); ANION GAP 9 (8-16); BILIRUBIN,TOTAL 0.9 mg/dL (0.2-1.0); CALCIUM 8.4 mg/dL (8.5-10.1); CO2 27 mmol/L (21-32); CREATININE 0.9 mg/dL (0.7-1.3); GLUCOSE,RANDOM 79 mg/dL (74-106); SGOT/AST 22 U/L (15-37); SGPT/ALT 18 U/L (12-78); TOT PROT 7.6 g/dl (6.4-8.2)
[2017-06-14 11:32] LABS: ALK PHOS 81 U/L (45-117); THYROID STIMULATING HORMONE 3.31 uIU/ml (0.358-3.74)
[2017-06-14] MEDS ORDERED: PT OWN MED DRAWER 7, Y5N ONE (20:28)
[2017-06-15] MEDS ORDERED: PT OWN MED DRAWER 7, Y5N ONE ×3 (11:16→21:15)
[2017-06-15] MEDS: DABIGATRAN ETEXILATE MESYLATE 150 MG CAPSULE PO SCH ×2 (11:34→21:21)
[2017-06-15] MEDS: BACITRACIN 15 GM TUBE TOPICAL OINTMENT TP SCH ×2 (11:34→21:21)
[2017-06-15] MEDS: LEVOFLOXACIN 500 MG IVPB 500 MG/100 ML BAG IVPB SCH (11:34)
[2017-06-15] MEDS: METOPROLOL SUCCINATE 25 MG TAB.SR.24H (FP) PO SCH ×2 (11:34→21:21)
--- NOTE | 2017-06-15 12:39 | PN ---
Progress Note, Physician Chief Complaint: Events noted Not in distress History of Present Illness: Patient was seen and examined. Awake an alert. Chart was reviewed Denies chest pain or palpitations - Current Medication List Current Medications: Active Medications Bacitracin (Bacitracin -) 1 applic TP BID [facility] Last Admin: 06/15/17 11:34 Dose: 1 applic Dabigatran (Pradaxa -) 150 mg PO BID [facility] Last Admin: 06/15/17 11:34 Dose: 150 mg Levofloxacin (Levaquin 500 Mg Premixed Ivpb -) 500 mg in 100 mls @ 100 mls/hr IVPB DAILY [facility] Last Admin: 06/15/17 11:34 Dose: 100 mls/hr Metoprolol Succinate (Toprol Xl -) 12.5 mg PO BID [facility] Last Admin: 06/15/17 11:34 Dose: 12.5 mg Tiotropium [place] (Spiriva -) 1 puff IH DAILY [facility] Last Admin: 06/14/17 09:39 Dose: 1 puff - Objective Vital Signs: Vital Signs Temperature 98.0 F 06/15/17 06:00 Pulse Rate 71 06/15/17 06:00 Respiratory Rate 18 06/15/17 06:00 Blood Pressure 141/76 06/15/17 06:00 O2 Sat by Pulse Oximetry (%) 99 06/14/17 21:00 Eyes: Yes: PERRL HENT: Yes: Atraumatic Neck: Yes: Supple Cardiovascular: Yes: Pulse Irregular, Murmur (Soft SM), S1, S2 Respiratory: Yes: Diminished Gastrointestinal: Yes: Normal Bowel Sounds, Soft. No: Tenderness Edema: No Additional Findings/Remarks: - Review of Systems Constitutional: denies: Weakness. denies: Chills, Fever Cardiovascular: (+) Shortness of Breath, denies: Chest Pain, Palpitations Respiratory: denies: SOB, denies: Cough, Hemoptysis, Orthopnea, PND Gastrointestinal: denies: Abdominal Pain, Constipation, Diarrhea, Melena, Nausea , Rectal Bleeding, Vomiting Musculoskeletal: denies: Joint Pain Neurological: denies: Weakness. denies: Confusion, Dizziness, Headache, Seizure , (+)Syncope Labs: CBC, BMP 06/14/17 10:00 06/14/17 10:00 INR, PTT Problem List - Problems (1) Diastolic dysfunction without heart failure Code(s): I51.9 - HEART DISEASE, UNSPECIFIED (2) PNA (pneumonia) Code(s): J18.9 - PNEUMONIA, UNSPECIFIED ORGANISM Qualifiers: Pneumonia type: due to unspecified organism Laterality: right Lung location: lower lobe of lung Qualified Code(s): J18.1 - Lobar pneumonia, unspecified organism (3) Syncope Code(s): R55 - SYNCOPE AND COLLAPSE Qualifiers: Syncope type: unspecified Qualified Code(s): R55 - Syncope and collapse (5) COPD (chronic obstructive pulmonary disease) Code(s): J44.9 - CHRONIC OBSTRUCTIVE PULMONARY DISEASE, UNSPECIFIED Qualifiers: COPD type: unspecified COPD Qualified Code(s): J44.9 - Chronic obstructive pulmonary disease, unspecified (6) Cerebrovascular disease Code(s): I67.9 - CEREBROVASCULAR DISEASE, UNSPECIFIED (7) Interstitial lung disease Code(s): J84.9 - INTERSTITIAL PULMONARY DISEASE, UNSPECIFIED (8) Paroxysmal atrial fibrillation Code(s): I48.0 - PAROXYSMAL ATRIAL FIBRILLATION (9) Renal insufficiency Code(s): N28.9 - DISORDER OF KIDNEY AND URETER, UNSPECIFIED Assessment/Plan 1. Post fall possible syncope, recurrent paroxysmal atrial fibrillation with RVR 2. Post Medtronic ICD for ventricular arrhythmia at [facility] with monitoring functions suspended 3. HTN/HCVD 4. LV diastolic dysfunction 5. 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 Gout PLAN: 1. Transthoracic echocardiography noted 2. Follow-up with Dr. Man for generator change as outpatient 3. Continue Pradaxa 150 bid and Toprol XL 25 bid at tolerated Further plans are to follow Mono Reilly MD
[2017-06-15] MEDS: TIOTROPIUM BROMIDE 18 MCG/INH (DEVICE W/ 5 CAPSULES) IH SCH (12:57)
--- NOTE | 2017-06-15 13:35 | PN ---
Progress Note (short form) - Note Progress Note: PULMONARY AWAKE/ALERT WELL KNOWN BY OUR SERVICE VSS/AFEBRILE PALE/ANICTERIC SCATTERED CRACKLES BILATERAL S1S2 IRREGULAR BS+ RIGHT HEMIPARESIS NO NEW LABS TODAY ECHO NOTED RVSP 76 /TR /NO MICRO/IMAGES/NOTES REVIEWED IMP SYNCOPE/ORTHOSTATIC CHANGES COPD EXACERBATION ILD/ASBESTOS DIASTOLIC HF ? RLL INFILTRATE EXTENSIVE PLEURAL/DIAPHRAGMATIC CALCIFICATIONS AFIB WITH RVR H/O VENTRICULAR ARRHYTHMIAS S/P ICD PLAN ANTIBIOTICS INHALED BRONCHODILATORS O2 RATE CONTROL PER CARDIOLOGY BETA KATHLEEN ADJUSTED R JOSHUA MABRY
--- NOTE | 2017-06-15 13:45 | PN ---
Progress Note, Physician Chief Complaint: patient awake and alert oriented to name no fever no wbc - Current Medication List Current Medications: Active Medications Bacitracin (Bacitracin -) 1 applic TP BID [facility] Last Admin: 06/15/17 11:34 Dose: 1 applic Dabigatran (Pradaxa -) 150 mg PO BID [facility] Last Admin: 06/15/17 11:34 Dose: 150 mg Levofloxacin (Levaquin 500 Mg Premixed Ivpb -) 500 mg in 100 mls @ 100 mls/hr IVPB DAILY [facility] Last Admin: 06/15/17 11:34 Dose: 100 mls/hr Metoprolol Succinate (Toprol Xl -) 12.5 mg PO BID [facility] Last Admin: 06/15/17 11:34 Dose: 12.5 mg Tiotropium [place] (Spiriva -) 1 puff IH DAILY [facility] Last Admin: 06/15/17 12:57 Dose: 1 puff - Objective Vital Signs: Vital Signs Temperature 98.4 F 06/15/17 09:00 Pulse Rate 76 06/15/17 09:00 Respiratory Rate 18 06/15/17 09:00 Blood Pressure 112/55 06/15/17 09:00 O2 Sat by Pulse Oximetry (%) 99 06/14/17 21:00 Constitutional: Yes: Calm, Thin Cardiovascular: Yes: S1, S2 Respiratory: Yes: CTA Bilaterally, Diminished (atbases) Gastrointestinal: Yes: Normal Bowel Sounds, Soft Edema: No Neurological: Yes: Alert Labs: CBC, BMP 06/14/17 10:00 06/14/17 10:00 INR, PTT INR 1.34 (0.82-1.09) H D 06/12/17 08:25 Problem List - Problems (1) Pre-syncope Assessment/Plan: off telemetry carotid doppler normal echo left ventricular hypertrophy, normal ejection fraction cardiology evaluation noted ppm battery check done as outpatient toprol dose decreased secondary to positional dizziness Code(s): R55 - SYNCOPE AND COLLAPSE (2) Chronic anticoagulation Assessment/Plan: on pradaxa afib toprol dose decreased Code(s): Z79.01 - SENIOR LIVING (CURRENT) USE OF ANTICOAGULANTS (3) Diastolic dysfunction without heart failure Assessment/Plan: echo noted mild left ventricular hypertrophy, normal ejection fraction Code(s): I51.9 - HEART DISEASE, UNSPECIFIED (4) COPD (chronic obstructive pulmonary disease) Assessment/Plan: pulm oxygen advair and spiriva ct scan show pleural calcificagtions Code(s): J44.9 - CHRONIC OBSTRUCTIVE PULMONARY DISEASE, UNSPECIFIED Qualifiers: COPD type: unspecified COPD Qualified Code(s): J44.9 - Chronic obstructive pulmonary disease, unspecified (5) Paroxysmal atrial fibrillation Assessment/Plan: metoprolol and pradaxa Code(s): I48.0 - PAROXYSMAL ATRIAL FIBRILLATION (6) Fall Assessment/Plan: xray negative PT to see patient again today SNF possible tmw Code(s): W19.XXXA - UNSPECIFIED FALL, INITIAL ENCOUNTER Qualifiers: Encounter type: initial encounter Qualified Code(s): W19.XXXA - Unspecified fall, initial encounter (7) PNA (pneumonia) Assessment/Plan: levaquin iv day 3 tmw will be day 4 of iv abx t hen parvin change to po abx for dc planning Code(s): J18.9 - PNEUMONIA, UNSPECIFIED ORGANISM Qualifiers: Pneumonia type: due to unspecified organism Laterality: right Lung location: lower lobe of lung Qualified Code(s): J18.1 - Lobar pneumonia, unspecified organism
[2017-06-16 07:53] LABS: BASO % 0.6 % (0-2.0); EOS % 4.3 % (0-4.5); MCH 32.6 pg (25.7-33.7); MCHC 33.9 g/dl (32.0-35.9); MEAN CELL VOLUME 96.2 fl (80-96); MEAN PLT VOLUME 8.3 fl (7.5-11.1); NEUT % 65.4 % (42.8-82.8); PLATELET COUNT 165 K/MM3 (134-434); WHITE BLOOD COUNT 6.3 K/mm3 (4.0-10.0)
[2017-06-16 08:13] LABS: ALBUMIN 2.7 g/dl (3.4-5.0); ANION GAP 9 (8-16); CALCIUM 8.5 mg/dL (8.5-10.1); CO2 27 mmol/L (21-32); CREATININE 0.8 mg/dL (0.7-1.3); GLUCOSE,RANDOM 85 mg/dL (74-106); SGOT/AST 39 U/L (15-37); SGPT/ALT 38 U/L (12-78); TOT PROT 6.6 g/dl (6.4-8.2)
[2017-06-16 08:14] LABS: ALK PHOS 102 U/L (45-117); BILIRUBIN,TOTAL 1.8 mg/dL (0.2-1.0)
[2017-06-16] MEDS ORDERED: PT OWN MED DRAWER 7, Y5N ONE (09:14)
[2017-06-16] MEDS: LEVOFLOXACIN 500 MG IVPB 500 MG/100 ML BAG IVPB SCH (09:16)
[2017-06-16] MEDS: DABIGATRAN ETEXILATE MESYLATE 150 MG CAPSULE PO SCH (09:16)
[2017-06-16] MEDS: TIOTROPIUM BROMIDE 18 MCG/INH (DEVICE W/ 5 CAPSULES) IH SCH (09:16)
[2017-06-16] MEDS: BACITRACIN 15 GM TUBE TOPICAL OINTMENT TP SCH (09:17)
[2017-06-16] MEDS: METOPROLOL SUCCINATE 25 MG TAB.SR.24H (FP) PO SCH ×2 (09:17→12:15)
--- NOTE | 2017-06-16 09:55 | DS ---
Physical Examination Vital Signs: Vital Signs Temperature 97.6 F 06/16/17 09:00 Pulse Rate 100 H 06/16/17 09:00 Respiratory Rate 18 06/16/17 09:00 Blood Pressure 101/70 06/16/17 09:00 O2 Sat by Pulse Oximetry (%) 100 06/15/17 21:00 Constitutional: Yes: Calm, Thin Cardiovascular: Yes: Regular Rate and Rhythm, S1, S2 Respiratory: Yes: CTA Bilaterally, Diminished (at bases) Gastrointestinal: Yes: Normal Bowel Sounds, Soft Edema: No Neurological: Yes: Alert, Oriented (to name) Labs: CBC, BMP 06/16/17 07:15 06/16/17 07:15 Discharge Summary Reason For Visit: AFIB, COPD, ELEVATED LACTIC ACID, PNEUMONIA, FALL Current Active Problems Afib (Acute) Chronic anticoagulation (Acute) Diastolic dysfunction without heart failure (Acute) Fall (Acute) PNA (pneumonia) (Acute) Pre-syncope (Acute) Pulmonary hypertension (Acute) Syncope (Acute) Hospital Course: PCP: Lizy Vargas - Admission History of Present Illness: 87-year-old male with PMH of congenital right sided malformation (shortened R leg and weakend RUE), pacemaker/defibrillator (on pradaxa), COPD (on home O2 2L ), hypertension and cholecystectomy presenting after falling at home and hitting his head. States that he was at home walking and believes that he tripped because of his right leg shortness. He fell forward and to his left hitting his knee, elbow, head then rolling and hitting the other side of his head. per patient he got dizzy and fell and hit his head. 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 He does admit to increasingly worse SOB over an unknown time period but denies increasing his O2. Denies actual syncope, palpitations, lightheadedness, chest pain, worsened shortness of breath , or recent sick symptoms. Of note, he was scheduled to have his pacemaker battery replacement today at [facility]. PCP: Alicia (switched last month). History Source: Patient, Family Member, Medical Record - Past Medical History Cardiovascular: Yes: HTN, Other (s/p ppm/aicd.) Pulmonary: Yes: COPD, Pulmonary Fibrosis - Smoking History Smoking history: Never smoked Have you smoked in the past 12 months: No Aproximately how many cigarettes per day: 0 patient seen by cardiology had echo on pradaxa copd on oxygen chest ct shows pleural and diaphragmatic calcifications noted started on iv abx for pna will change to po starting tmw s/p fall xray negative had carotid doppler negative and seen by PT will need snf. Condition: Improved - Instructions Diet, Activity, Other Instructions: levaquin 500mg po daily for 3 days Disposition: SNF FACILITY - Home Medications Comprehensive Discharge Medication List: Ambulatory Orders Albuterol Sulfate Inhaler - [Ventolin HFA Inhaler -] 2 inh PO Q4H 10/29/13 Tiotropium [place] [Spiriva -] 18 mcg IH DAILY 11/19/14 Dabigatran Etexilate Mesylate [Pradaxa -] 150 mg PO BID 06/12/17 Metoprolol Succinate [Toprol Xl -] 12.5 mg PO BID 06/12/17 Metoprolol Succinate [Toprol Xl -] 25 mg PO HS 06/12/17 Multivit-Min/FA/Lycopen/Lutein [Centrum Silver Tablet] 1 each PO DAILY 06/12/17 Salmeterol/Fluticasone [Advair 100Mcg/50Mcg -] 1 inh PO BID PRN 06/12/17
--- NOTE | 2017-06-16 09:58 | PN ---
Progress Note (short form) - Note Progress Note: spoke to niece explained to her about snf and that he is weak to go home right now needs some rehab explained to her that [facility] and we can continue following her over there she will talk to patient and CM today and will let us know patient is ready for discharge Problem List - Problems (1) Pre-syncope Code(s): R55 - SYNCOPE AND COLLAPSE (2) Chronic anticoagulation Code(s): Z79.01 - UNISHEAR OPERATOR (CURRENT) USE OF ANTICOAGULANTS (3) Diastolic dysfunction without heart failure Code(s): I51.9 - HEART DISEASE, UNSPECIFIED (4) COPD (chronic obstructive pulmonary disease) Code(s): J44.9 - CHRONIC OBSTRUCTIVE PULMONARY DISEASE, UNSPECIFIED Qualifiers: COPD type: unspecified COPD Qualified Code(s): J44.9 - Chronic obstructive pulmonary disease, unspecified (5) Paroxysmal atrial fibrillation Code(s): I48.0 - PAROXYSMAL ATRIAL FIBRILLATION (6) Fall Code(s): W19.XXXA - UNSPECIFIED FALL, INITIAL ENCOUNTER Qualifiers: Encounter type: initial encounter Qualified Code(s): W19.XXXA - Unspecified fall, initial encounter (7) PNA (pneumonia) Code(s): J18.9 - PNEUMONIA, UNSPECIFIED ORGANISM Qualifiers: Pneumonia type: due to unspecified organism Laterality: right Lung location: lower lobe of lung Qualified Code(s): J18.1 - Lobar pneumonia, unspecified organism
--- NOTE | 2017-06-16 13:39 | PN ---
Progress Note (short form) - Note Progress Note: PULMONARY AWAKE/ALERT WELL KNOWN BY OUR SERVICE VSS/AFEBRILE PALE/ANICTERIC SCATTERED CRACKLES BILATERAL S1S2 IRREGULAR BS+ RIGHT HEMIPARESIS NO NEW LABS TODAY ECHO NOTED RVSP 76 /TR /NO MICRO/IMAGES/NOTES REVIEWED IMP SYNCOPE/ORTHOSTATIC CHANGES COPD EXACERBATION ILD/ASBESTOS DIASTOLIC HF ? RLL INFILTRATE EXTENSIVE PLEURAL/DIAPHRAGMATIC CALCIFICATIONS AFIB WITH RVR H/O VENTRICULAR ARRHYTHMIAS S/P ICD PLAN ANTIBIOTICS INHALED BRONCHODILATORS O2 RATE CONTROL PER CARDIOLOGY BETA KATHLEEN ADJUSTED NEEDS PT R JOSHUA MABRY
[2017-06-16 17:19] VITALS: BP 105/57; PULSE 79; TEMP 98.1
--- NOTE | 2017-06-16 17:46 | PN ---
Progress Note, Physician History of Present Illness: Positional dizziness improved, orthostatic VS noted, Toprol dose decreased. - Current Medication List Current Medications: Active Medications Bacitracin (Bacitracin -) 1 applic TP BID [facility] Last Admin: 06/16/17 09:17 Dose: 1 applic Dabigatran (Pradaxa -) 150 mg PO BID [facility] Last Admin: 06/16/17 09:16 Dose: 150 mg Levofloxacin (Levaquin 500 Mg Premixed Ivpb -) 500 mg in 100 mls @ 100 mls/hr IVPB DAILY [facility] Last Admin: 06/16/17 09:16 Dose: 100 mls/hr Metoprolol Succinate (Toprol Xl -) 12.5 mg PO BID [facility] Last Admin: 06/16/17 12:15 Dose: Not Given Tiotropium [place] (Spiriva -) 1 puff IH DAILY [facility] Last Admin: 06/16/17 09:16 Dose: 1 puff - Objective Vital Signs: Vital Signs Temperature 98.1 F 06/16/17 17:19 Pulse Rate 79 06/16/17 17:19 Respiratory Rate 18 06/16/17 17:19 Blood Pressure 105/57 06/16/17 17:19 O2 Sat by Pulse Oximetry (%) 99 06/16/17 09:00 Constitutional: Yes: No Distress, Calm Neck: Yes: Supple Cardiovascular: Yes: Regular Rate and Rhythm Respiratory: Yes: Regular, Diminished Gastrointestinal: Yes: Normal Bowel Sounds, Soft Edema: No Labs: CBC, BMP 06/16/17 07:15 06/16/17 07:15 INR, PTT INR 1.34 (0.82-1.09) H D 06/12/17 08:25 Problem List - Problems (1) Diastolic dysfunction without heart failure Code(s): I51.9 - HEART DISEASE, UNSPECIFIED (2) COPD (chronic obstructive pulmonary disease) Code(s): J44.9 - CHRONIC OBSTRUCTIVE PULMONARY DISEASE, UNSPECIFIED Qualifiers: COPD type: unspecified COPD Qualified Code(s): J44.9 - Chronic obstructive pulmonary disease, unspecified (3) Paroxysmal atrial fibrillation Code(s): I48.0 - PAROXYSMAL ATRIAL FIBRILLATION (5) Chronic anticoagulation Code(s): Z79.01 - HALF-WAY (CURRENT) USE OF ANTICOAGULANTS (6) Pulmonary hypertension Code(s): I27.20 - PULMONARY HYPERTENSION, UNSPECIFIED (7) Pre-syncope Code(s): R55 - SYNCOPE AND COLLAPSE Assessment/Plan 06/13/2017 Echo: Borderline cLVH, normal LV size and fxn, mod-severe TR, mod AR , mild MR 1. Post fall possible syncope, recurrent paroxysmal atrial fibrillation with RVR and orthostasis 2. Post Medtronic ICD for ventricular arrhythmia at [facility] with monitoring functions suspended 3. HTN/HCVD 4. LV diastolic dysfunction 5. 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 Gout PLAN: 1. Addressed abortive maneuvers once prodromal sxs experienced 2. Patient to follow-up with Dr. Man for generator change as outpatient 3. Continue Pradaxa 150 bid, decreased Toprol XL 12.5 bid 4. For d/c to SNF today
== END 2017-06-16 19:51 | DRG 308 ==
LOC: JER 07:44 → JERBED 12:08 → J4W 15:50 → J5S 06-14 15:38 → J4W 06-14 16:18 → J5S 06-14 18:28
PROVIDERS: ADMIT Student in an Organized Health Care Education/Training Program; ATTEND Student in an Organized Health Care Education/Training Program
DX: I48.0 Paroxysmal atrial fibrillation (principal); J18.9 Pneumonia, unspecified organism; I50.33 Acute on chronic diastolic (congestive) heart failure; J44.1 Chronic obstructive pulmonary disease with (acute) exacerbation; G81.91 Hemiplegia, unspecified affecting right dominant side; J61 Pneumoconiosis due to asbestos and other mineral fibers; I11.0 Hypertensive heart disease with heart failure; I27.20 Pulmonary hypertension, unspecified; I95.1 Orthostatic hypotension; Z99.81 Dependence on supplemental oxygen; Z95.810 Presence of automatic (implantable) cardiac defibrillator; Z79.01 Long term (current) use of anticoagulants; Q72.91 Unspecified reduction defect of right lower limb; S09.8XXA Other specified injuries of head, initial encounter; W01.0XXA Fall on same level from slipping, tripping and stumbling without subsequent striking against object, initial encounter; Y93.89 Activity, other specified; Y92.89 Other specified places as the place of occurrence of the external cause; Y99.8 Other external cause status; S89.82XA Other specified injuries of left lower leg, initial encounter; S50.312A Abrasion of left elbow, initial encounter; Z88.0 Allergy status to penicillin; M10.9 Gout, unspecified
CPT/HCPCS: 36415; 70450-TC; 71010-TC; 71250-TC; 72125-TC; 73070-TC-LT; 73560-TC-LT; 80053; 80061; 81003; 81015; 82550; 82803; 83605; 83721; 83735; 83880; 84100; 84443; 84484; 85025; 85610; 85730; 86850; 86900; 86901; 87040; 87086; 93005; 93010; 93306-TC; 93880-TC; 97116-GP; 97161-GP; 99285-25

== ENCOUNTER 2017-07-19 00:32 | Inpatient (IN) | payer OTHER, BC ==
[2017-07-19] MEDS ORDERED: ALBUTEROL SO4 2.5/IPRATROPIUM 0.5 INH SOL 3 ML VIAL.NEB. NEB ONE ×3 (00:57→02:16)
[2017-07-19] MEDS ORDERED: MAGNESIUM SULF 50% (8.12 MEQ/2 ML-1 GM VIAL) IVPB ONE (00:57)
[2017-07-19] MEDS ORDERED: methylPREDNISolone NA SUCC 125 MG/2 ML VIAL IVPB ONE (00:57)
--- NOTE | 2017-07-19 01:07 | PDOC ---
History of Present Illness - General History Source: Patient Exam Limitations: No Limitations - History of Present Illness Initial Comments: 07/19/17 01:39 The patient is an 87 year old male with history significant for hypertension and COPD sent to the ED from his [place] for approximately 1 day of shortness of breath with wheezing. Patient reports he had recent x-ray confirmed pneumonia. No fever or chills. No nausea, vomiting, or diarrhea. No chest pain or lightheadedness. PCP: Dr. Vargas Clinical Practitioner: Dr. Mono Reilly Pulm: Dr. Keith <Berna Shields - Last Filed: 07/19/17 01:56> <Aleah Thomas - Last Filed: 07/19/17 02:26> - General Chief Complaint: Shortness of Breath Stated Complaint: DIFF BREATHING Time Seen by Provider: 07/19/17 00:47 Past History <Berna Shields - Last Filed: 07/19/17 01:56> - Past Medical History Cardiac Disorders: Yes (PACEMAKER/DEFIBRILLATOR) COPD: Yes HTN: Yes - Surgical History Cardiac Surgery: Yes (PACEMAKER/DEFIBRILLATOR) Cholecystectomy: Yes - Suicide/Smoking/Psychosocial Hx Smoking Status: Yes Smoking History: Never smoked Have you smoked in the past 12 months: No Number of Cigarettes Smoked Daily: 0 Hx Alcohol Use: No Drug/Substance Use Hx: No Substance Use Type: None Hx Substance Use Treatment: No <Aleah Thomas - Last Filed: 07/19/17 02:26> - Past Medical History Allergies/Adverse Reactions: Allergies Allergy/AdvReac Type Severity Reaction Status Date / Time Penicillins Allergy Intermediate Rash Verified 07/19/17 01:47 Home Medications: Ambulatory Orders Albuterol Sulfate Inhaler - [Ventolin HFA Inhaler -] 2 inh PO Q4H 10/29/13 Tiotropium [place] [Spiriva] 18 mcg IH DAILY 11/19/14 Dabigatran Etexilate Mesylate [Pradaxa -] 150 mg PO BID 06/12/17 Metoprolol Succinate [Toprol Xl -] 12.5 mg PO BID 06/12/17 Multivit-Min/FA/Lycopen/Lutein [Centrum Silver Tablet] 1 each PO DAILY 06/12/17 Salmeterol/Fluticasone [Advair 100Mcg/50Mcg -] 1 inh PO BID PRN 12/11/17 Levofloxacin [Levaquin -] 500 mg PO DAILY #4 tablet MDD 1 06/16/17 Metoprolol Succinate [Toprol XL -] 12.5 mg PO BID #30 tab.sr.24h MDD 2 06/16/17 Levofloxacin [Levaquin] 500 mg PO DAILY 07/19/17 Review of Systems - Review of Systems Able to Perform ROS?: Yes Comments:: 07/19/17 01:41 CONSTITUTIONAL: Absent: fever, chills, diaphoresis, generalized weakness, malaise, loss of appetite HEENT: Absent: rhinorrhea, nasal congestion, throat pain, throat swelling, difficulty swallowing, mouth swelling, ear pain, eye pain, visual Changes CARDIOVASCULAR: Absent: chest pain, syncope, palpitations, irregular heart rate, lightheadedness , peripheral edema RESPIRATORY: Present: dysnpea, wheezing Absent: stridor, hemoptysis GASTROINTESTINAL: Absent: abdominal pain, abdominal distension, nausea, vomiting, diarrhea, constipation, melena, hematochezia GENITOURINARY: Absent: dysuria, frequency, urgency, hesitancy, hematuria, flank pain, genital pain MUSCULOSKELETAL: Absent: myalgia, arthralgia, joint swelling SKIN: Absent: rash, itching, pallor HEMATOLOGIC/IMMUNOLOGIC: Absent: easy bleeding, easy bruising, lymphadenopathy, frequent infections ENDOCRINE: Absent: unexplained weight gain, unexplained weight loss, heat intolerance, cold intolerance NEUROLOGIC: Absent: headache, focal weakness or paresthesias, dizziness, unsteady gait, seizure, mental status changes, bladder or bowel incontinence PSYCHIATRIC: Absent: anxiety, depression, suicidal or homicidal ideation, hallucinations. <Berna Shields - Last Filed: 07/19/17 01:56> *Physical Exam - Physical Exam Comments: 07/19/17 01:42 GENERAL: Well developed, well nourished. Awake and alert. Mild respiratory distress. HEENT: Normocephalic, atraumatic. PERRLA, EOMI. No conjunctival pallor. Sclera are non- icteric. Moist mucous membranes. Oropharynx is clear. NECK: Supple. Full ROM. No JVD. Carotid pulses 2+ and symmetric, without bruits. No thyromegaly. No lymphadenopathy. CARDIOVASCULAR: Regular rate and rhythm. No murmurs, rubs, or gallops. Distal pulses are 2+ and symmetric. RESPIRATORY: Coarse breath sounds and wheezing at bilateral lung bases. No wheezing, rales or rhonchi. ABDOMINAL: Soft. Non-tender. Non-distended. No rebound or guarding. No organomegaly. Normoactive bowel sounds. MUSCULOSKELETAL Normal range of motion at all joints. No bony deformities or tenderness. No CVA tenderness. EXTREMITIES: No cyanosis. No clubbing. No edema. No calf tenderness. SKIN: Warm and dry. Normal capillary refill. No rashes. No jaundice. NEUROLOGICAL: Alert, awake, appropriate. Cranial nerves 2-12 intact. No deficits to light touch and temperature in face, upper extremities and lower extremities. No motor deficits in the in face, upper extremities and lower extremities. Normoreflexic in the upper and lower extremities. Normal speech. Gait is normal without ataxia. PSYCHIATRIC: Cooperative. Good eye contact. Appropriate mood and affect. <Berna Shields - Last Filed: 07/19/17 01:56> Heart Score/ECG Review #1 ECG reviewed & interpreted by me at: 01:10 07/19/17 01:57 EKG obtained 1:08. Sinus tachycardia at 123 bpm with frequent premature ventricular complexes. Possible left atrial enlargement. Left axis deviation. Abnormal EKG. 07/19/17 01:57 <Berna Shields - Last Filed: 07/19/17 01:56> ED Treatment Course - LABORATORY CBC & Chemistry Diagram: 07/19/17 01:15 07/19/17 01:15 - ADDITIONAL ORDERS Additional order review: 07/19/17 01:15 RBC 4.13 MCV 96.8 H MCHC 32.8 RDW 14.4 MPV 7.3 L D Neutrophils % No Result Required. Lymphocytes % No Result Required. <Berna Shields - Last Filed: 07/19/17 01:56> - LABORATORY CBC & Chemistry Diagram: 07/19/17 01:15 07/19/17 01:15 - RADIOLOGY Radiology Studies Ordered: Category Date Time Status CHEST X-RAY PORTABLE* [RAD] Stat Radiology 07/19/17 00:57 Ordered <Aleah Thomas - Last Filed: 07/19/17 02:26> *DC/Admit/Observation/Transfer - Attestations Scribe Attestion: 07/19/17 01:43 Documentation prepared by Berna Shields, acting as medical staff specialist for Aleah Thomas MD. <Berna Shields - Last Filed: 07/19/17 01:56> - Discharge Dispostion Admit: Yes <Aleah Thomas - Last Filed: 07/19/17 02:26> Diagnosis at time of Disposition: Interstitial lung disease, COPD with exacerbation PNA (pneumonia) Qualifiers: Pneumonia type: due to unspecified organism Laterality: bilateral Lung location : lower lobe of lung Qualified Code(s): J18.9 - Pneumonia, unspecified organism - Referrals Referrals: Citlaly Servin MD [Primary Care Provider] - - Patient Instructions - Post Discharge Activity
[2017-07-19 01:35] LABS: HEMATOCRIT 39.9 % (35.4-49); HEMOGLOBIN 13.1 GM/dL (11.7-16.9); MCH 31.7 pg (25.7-33.7); MCHC 32.8 g/dl (32.0-35.9); MEAN CELL VOLUME 96.8 fl (80-96); MEAN PLT VOLUME 7.3 fl (7.5-11.1); PLATELET COUNT 253 K/MM3 (134-434); RBC 4.13 M/mm3 (4.00-5.60); RDW 14.4 % (11.9-15.9); WHITE BLOOD COUNT 15.2 K/mm3 (4.0-10.0)
[2017-07-19] MEDS ORDERED: ACETAMINOPHEN 325 MG TABLET (FP) PO ONE (02:03)
[2017-07-19] MEDS ORDERED: ACETAMINOPHEN 325 MG TABLET (FP) ONE (02:08)
[2017-07-19] MEDS ORDERED: VANCOMYCIN 1,000 MG in DEXTROSE 5%-WATER - 250 ML IVPB STA (02:10)
[2017-07-19] MEDS ORDERED: MEROPENEM 1,000 MG in DEXTROSE 5%-WATER - 100 ML IVPB STA (02:12)
[2017-07-19] MEDS: ALBUTEROL SO4 2.5/IPRATROPIUM 0.5 INH SOL 3 ML VIAL.NEB. NEB SCH ×7 (02:15→20:25)
[2017-07-19 02:19] LABS: ALBUMIN 3.1 g/dl (3.4-5.0); ALK PHOS 100 U/L (45-117); ANION GAP 9 (8-16); BILIRUBIN,TOTAL 0.5 mg/dL (0.2-1.0); BLOOD UREA NITROGEN 17 mg/dL (7-18); CALCIUM 8.6 mg/dL (8.5-10.1); CHLORIDE 102 mmol/L (98-107); CO2 27 mmol/L (21-32); CREATININE 1.1 mg/dL (0.7-1.3); GLUCOSE,RANDOM 140 mg/dL (74-106); POTASSIUM 4.2 mmol/L (3.5-5.1); SGOT/AST 21 U/L (15-37); SGPT/ALT 16 U/L (12-78); SODIUM 138 mmol/L (136-145); TOT PROT 7.5 g/dl (6.4-8.2)
[2017-07-19 03:02] LABS: N-TERMINAL BNP 1758.92 pg/ml (5-450)
[2017-07-19] MEDS ORDERED: SODIUM CHLORIDE 500 ML IV STA ×2 (03:17→05:02)
[2017-07-19] MEDS ORDERED: ALBUTEROL SO4 0.083% IH SOL 2.5 MG/3 ML VIAL.NEB. NEB PRN (03:19)
--- NOTE | 2017-07-19 03:47 | HP ---
CHIEF COMPLAINT: SOB PCP: Alicia ([facility]) HISTORY OF PRESENT ILLNESS: This is an 87 year old male with a significant past medical history of pulmonary fibrosis/ILD, COPD (O2 dependent), PNA who presented to the ED from his STR facility, [facility] [place], with SOB. Pt states that he first became SOB 5 days ago and he had a CXR done that revealed PNA. He was started on nebulizers on and levaquin on 07/17 and initially was feeling better but then around 10pm he was unable to catch his breath. He still reports SOB and increased weakness on exam. ER course was notable for: (1) WBC 15.2, LA 1.6 (2) CXR with increased patchy infiltrates Recent Travel: pt denies PAST MEDICAL HISTORY: COPD/ILD O2 dependent, pulmonary HTN, PAfib, vent arrhythmia s/p AICD, LV dysfunction, gout, congenital right sided malformation PAST SURGICAL HISTORY: cholecystectomy, AICD Social History: Smoking: quit 40 years ago, previous 1-1.5ppd Alcohol: pt denies Drugs: pt denies Family History: mother , complications of DM father age 78, peritonitis brother age 49, [place] brother lung cA brother metastatic prostate CA brother DM Allergies Penicillins Allergy (Intermediate, Verified 07/19/17 01:47) Rash HOME MEDICATIONS: 3 Medication Instructions Recorded Albuterol Sulfate Inhaler - 2 inh PO Q4H 10/29/13 [Ventolin HFA Inhaler -] Tiotropium [place] [Spiriva] 18 mcg IH DAILY 11/19/14 Dabigatran Etexilate Mesylate 150 mg PO BID 06/12/17 [Pradaxa -] Metoprolol Succinate [Toprol Xl -] 25 mg PO DAILY 06/12/17 Multivit-Min/FA/Lycopen/Lutein 1 each PO DAILY 06/12/17 [Centrum Silver Tablet] Salmeterol/Fluticasone [Advair 1 inh PO BID PRN 06/12/17 100Mcg/50Mcg -] Levofloxacin [Levaquin -] 500 mg PO DAILY #4 tablet MDD 1 06/16/17 Meclizine HCl [Antivert -] 12.5 mg PO BID PRN 07/19/17 REVIEW OF SYSTEMS CONSTITUTIONAL: Present: generalized weakness Absent: fever, chills, diaphoresis, malaise, loss of appetite, weight change HEENT: Absent: rhinorrhea, nasal congestion, throat pain, throat swelling, difficulty swallowing, mouth swelling, ear pain, eye pain, visual changes CARDIOVASCULAR: Absent: chest pain, syncope, palpitations, irregular heart rate, lightheadedness , peripheral edema RESPIRATORY: Present: cough, shortness of breath Absent: dyspnea with exertion, orthopnea, wheezing, stridor, hemoptysis GASTROINTESTINAL: Absent: abdominal pain, abdominal distension, nausea, vomiting, diarrhea, constipation, melena, hematochezia GENITOURINARY: Absent: dysuria, frequency, urgency, hesitancy, hematuria, flank pain, genital pain MUSCULOSKELETAL: Absent: myalgia, arthralgia, joint swelling, back pain, neck pain SKIN: Absent: rash, itching, pallor HEMATOLOGIC/IMMUNOLOGIC: Absent: easy bleeding, easy bruising, lymphadenopathy, frequent infections ENDOCRINE: Absent: unexplained weight gain, unexplained weight loss, heat intolerance, cold intolerance NEUROLOGIC: Absent: headache, focal weakness or paresthesias, dizziness, unsteady gait, seizure, mental status changes, bladder or bowel incontinence PSYCHIATRIC: Absent: anxiety, depression, suicidal or homicidal ideation, hallucinations. PHYSICAL EXAMINATION Vital Signs - 24 hr 3 07/19/17 07/19/17 01:48 02:03 Temperature 97.8 F 100.3 F H Pulse Rate 92 H Respiratory 20 Rate Blood Pressure 96/55 O2 Sat by Pulse 96 Oximetry (%) GENERAL: Awake, alert, and fully oriented, in no acute distress. HEAD: Normal with no signs of trauma. EYES: Pupils equal, round and reactive to light, extraocular movements intact, sclera anicteric, conjunctiva clear. No lid lag. EARS, NOSE, THROAT: Ears normal, nares patent, oropharynx clear without exudates. Moist mucous membranes. NECK: Normal range of motion, supple without lymphadenopathy, JVD, or masses. LUNGS: + diffuse wheezing, crackles Right lower lung field HEART: Irregular rate and rhythm, normal S1 and S2 without murmur, rub or gallop. ABDOMEN: Soft, nontender, not distended, normoactive bowel sounds, no guarding, no rebound, no masses. No hepatomegaly or splenomegaly. MUSCULOSKELETAL: Normal range of motion at all joints. No bony deformities or tenderness. No CVA tenderness. UPPER EXTREMITIES: 2+ pulses, warm, well-perfused. No cyanosis. No clubbing. No peripheral edema. LOWER EXTREMITIES: 2+ pulses, warm, well-perfused. No calf tenderness. No peripheral edema. NEUROLOGICAL: Cranial nerves II-XII intact. Normal speech. Normal gait. PSYCHIATRIC: Cooperative. Good eye contact. Appropriate mood and affect. SKIN: Warm, dry, normal turgor, no rashes or lesions noted, normal capillary refill. Laboratory Results - last 24 hr 3 07/19/17 07/19/17 07/19/17 01:15 01:15 02:45 WBC 15.2 H D RBC 4.13 Hgb 13.1 Hct 39.9 MCV 96.8 H MCH 31.7 MCHC 32.8 RDW 14.4 Plt Count 253 D MPV 7.3 L D Neutrophils % No Result Required. Lymphocytes % No Result Required. Sodium 138 Potassium 4.2 Chloride 102 Carbon Dioxide 27 Anion Gap 9 BUN 17 D Creatinine 1.1 D Creat Clearance w eGFR > 60 Random Glucose 140 H D Lactic Acid 1.6 Calcium 8.6 Total Bilirubin 0.5 D AST 21 D ALT 16 D Alkaline Phosphatase 100 Creatine Kinase 65 Troponin I 0.03 D B-Natriuretic Peptide 1758.92 H Total Protein 7.5 Albumin 3.1 L Radiology Reports CXR, official read pending, chronic changes noted, increased patchy infiltrates , shobha right ECG ASSESSMENT/PLAN: 87yM with PMH COPD/ILD O2 dependent, PNA, pulmonary HTN, PAfib, vent arrhythmia s/p AICD, LV dysfunction, gout, congenital right sided malformation presented to the ED with SOB. Sepsis secondary to pneumonia - as evidenced by elevated WBC and HR - meropenem and vanco given in ED. - ID consult, defer to Primary team in am - pt now tachy into 150s, will give NS 500cc bolus x 1 then 100cc/hr COPD/ILD - nebs as ordered - solumedrol 40mg q6h, given 125 in ED - cont home advair, spiriva - pulm consult Afib, paroxysmal - HR elevated likely due to sepsis, trial IVF - cont home metoprolol, Pradaxa - cardiology consult if no improvement in HR with tx of sepsis DVT PPX - on pradaxa FEN - NS @ 100cc/hr after bolus - BMP in am - low sodium diet as tolerated Dispo: Pt currently requires inpatient management of his emergent condition. Visit type - Emergency Visit Emergency Visit: Yes Care time: The patient presented to the Emergency Department on the above date and was hospitalized for further evaluation of their emergent condition. - New Patient This patient is new to me today: Yes Date on this admission: 07/19/17 - Critical Care Critical Care patient: No
[2017-07-19] MEDS ORDERED: HEPARIN NA (PORCINE) 5,000 UNITS/ML 1ML VIAL SQ SCH (06:00)
[2017-07-19 08:37] VITALS: BMI 21.7
--- NOTE | 2017-07-19 08:39 | PN ---
Progress Note, Physician History of Present Illness: PT C/O SOB AND DIZZINESS - Current Medication List Current Medications: Active Medications Albuterol Sulfate (Ventolin 0.083% Nebulizer Soln -) 1 amp NEB Q4H PRN PRN Reason: SHORT OF BREATH/WHEEZING Albuterol/Ipratropium (Duoneb -) 1 amp NEB RQID [facility] Dabigatran (Pradaxa -) 150 mg PO BID HEMAL Sodium Chloride (Normal Saline -) 1,000 mls @ 100 mls/hr IV ASDIR HEMAL Levofloxacin (Levaquin 750 Mg Premixed Ivpb -) 750 mg in 150 mls @ 100 mls/hr IVPB ONCE ONE Stop: 07/19/17 10:07 Methylprednisolone Sodium Succinate (Solu-Medrol -) 40 mg IVPUSH Q6H-IV HEMAL Metoprolol Succinate (Toprol Xl -) 25 mg PO DAILY HEMAL Multivitamins/Minerals (Theragran-M) 1 each PO DAILY HEMAL Fluticasone/Salmeterol (Advair 100mcg/50mcg -) 1 puff IH BID HEMAL Tiotropium [place] (Spiriva -) 1 puff IH DAILY HEMAL - Objective Vital Signs: Vital Signs Temperature 100.3 F H 07/19/17 02:03 Pulse Rate 133 H 07/19/17 07:47 Respiratory Rate 26 H 07/19/17 07:47 Blood Pressure 87/60 07/19/17 07:47 O2 Sat by Pulse Oximetry (%) 91 L 07/19/17 07:47 Cardiovascular: Yes: Tachycardia, S1, S2 Respiratory: Yes: On Nasal O2, Rales, Rhonchi Gastrointestinal: Yes: Normal Bowel Sounds, Soft Edema: No Labs: CBC, BMP 07/19/17 01:15 07/19/17 01:15 Problem List - Problems (1) Sepsis Assessment/Plan: -as evidenced by elevated WBC and HR - meropenem and vanco given in ED. -Levaquin and ID consult - pt now tachy into 150s, will give NS 125cc/hr - icu may need pressers Code(s): A41.9 - SEPSIS, UNSPECIFIED ORGANISM (2) COPD with exacerbation Assessment/Plan: nebs iv steroids pulm consult Code(s): J44.1 - CHRONIC OBSTRUCTIVE PULMONARY DISEASE W (ACUTE) EXACERBATION (3) PNA (pneumonia) Assessment/Plan: as above iv abx Code(s): J18.9 - PNEUMONIA, UNSPECIFIED ORGANISM Qualifiers: Pneumonia type: due to unspecified organism Laterality: bilateral Lung location: lower lobe of lung Qualified Code(s): J18.9 - Pneumonia, unspecified organism (4) Afib Assessment/Plan: monitor rate as sepsis treated meds limited due to bp cardio on pradaxa Code(s): I48.91 - UNSPECIFIED ATRIAL FIBRILLATION Qualifiers: Atrial fibrillation type: unspecified Qualified Code(s): I48.91 - Unspecified atrial fibrillation (5) Diastolic dysfunction without heart failure Assessment/Plan: monitor Code(s): I51.9 - HEART DISEASE, UNSPECIFIED (6) Ventricular arrythmia, status post ICD Assessment/Plan: per cardio
[2017-07-19] MEDS ORDERED: LEVOFLOXACIN 750 MG IVPB 750 MG/150 ML BAG IVPB ONE (09:00)
[2017-07-19 09:06] LABS: BASO % 0.1 % (0-2.0); HEMATOCRIT 37.7 % (35.4-49); HEMOGLOBIN 12.2 GM/dL (11.7-16.9); LYMPH % 1.7 % (8-40); MCH 31.1 pg (25.7-33.7); MCHC 32.3 g/dl (32.0-35.9); MEAN CELL VOLUME 96.1 fl (80-96); MEAN PLT VOLUME 7.5 fl (7.5-11.1); MONO % 2.4 % (3.8-10.2); NEUT % 95.8 % (42.8-82.8); PLATELET COUNT 195 K/MM3 (134-434); RBC 3.93 M/mm3 (4.00-5.60); RDW 14.2 % (11.9-15.9); WHITE BLOOD COUNT 17.8 K/mm3 (4.0-10.0)
[2017-07-19] MEDS: SODIUM CHLORIDE 1,000 ML IV SCH (09:28)
[2017-07-19] MEDS: DABIGATRAN ETEXILATE MESYLATE 150 MG CAPSULE PO SCH ×2 (09:29→21:59)
[2017-07-19] MEDS: MULTIVITAMINS THER W-MINERALS COMBO TABLET (FP) PO SCH (09:29)
[2017-07-19] MEDS: methylPREDNISolone NA SUCC 40 MG/1 ML VIAL IVPUSH SCH ×3 (09:29→21:59)
--- NOTE | 2017-07-19 09:34 | CON.CARD ---
Consult Consult Specialty:: Cardiology Referred by:: Lizy Vargas MD Reason for Consultation:: Dyspnea - History of Present Illness Chief Complaint: Dyspnea History of Present Illness: 87-year-old male with PMH of congenital right sided malformatiom (shorteend R leg and weakend RUE), paroxysmal atrial fibrillation/flutter (on pradaxa), s/p defibrillator for ventricular arrhythmia, pulmonary fibrosis/ILD, COPD (on home O2 2L), hypertension, gout, LV dysfunction and cholecystectomy presented from [place] with progressive dyspnea, fever and hemoptysis despite outpatient treatment, CXR shows increased RLL infiltrates compared to previous, EKG shows rapid afib, hypotensive, received IVF. ER course was notable for: (1) WBC 15.2, LA 1.6 (2) CXR with increased patchy infiltrates - History Source History Provided By: Medical Record Limitations to Obtaining History: Clinical Condition - Past Medical History Cardio/Vascular: Yes: HTN, Other (s/p ppm/aicd.) Pulmonary: Yes: COPD, Pulmonary Fibrosis - Past Surgical History Past Surgical History: Yes: Permanent Pacemaker - Alcohol/Substance Use Hx Alcohol Use: No - Smoking History Smoking history: Never smoked Have you smoked in the past 12 months: No Aproximately how many cigarettes per day: 0 Home Medications - Allergies Allergies/Adverse Reactions: Allergies Allergy/AdvReac Type Severity Reaction Status Date / Time Penicillins Allergy Intermediate Rash Verified 07/19/17 01:47 - Home Medications Home Medications: Ambulatory Orders Albuterol Sulfate Inhaler - [Ventolin HFA Inhaler -] 2 inh PO Q4H 10/29/13 Tiotropium [place] [Spiriva] 18 mcg IH DAILY 11/19/14 Dabigatran Etexilate Mesylate [Pradaxa -] 150 mg PO BID 06/12/17 Metoprolol Succinate [Toprol Xl -] 25 mg PO DAILY 06/12/17 Multivit-Min/FA/Lycopen/Lutein [Centrum Silver Tablet] 1 each PO DAILY 06/12/17 Salmeterol/Fluticasone [Advair 100Mcg/50Mcg -] 1 inh PO BID PRN 06/12/17 Levofloxacin [Levaquin -] 500 mg PO DAILY #4 tablet MDD 1 06/16/17 Meclizine HCl [Antivert -] 12.5 mg PO BID PRN 07/19/17 Review of Systems - Review of Systems Respiratory: reports: Cough, Exercise Intolerance, SOB Vital Signs: Vital Signs Temperature 100.3 F H 07/19/17 02:03 Pulse Rate 133 H 07/19/17 07:47 Respiratory Rate 26 H 07/19/17 07:47 Blood Pressure 87/60 07/19/17 07:47 O2 Sat by Pulse Oximetry (%) 91 L 07/19/17 07:47 Constitutional: Yes: Mild Distress, Thin Neck: Yes: Supple Respiratory: Yes: Regular, Diminished, On Nasal O2 Gastrointestinal: Yes: Normal Bowel Sounds, Soft Cardiovascular: Yes: Tachycardia, Pulse Irregular JVD: No Carotid Bruit: No Heart Sounds: Yes: S1, S2 Murmur: Yes: Systolic Murmur, Grade 1 Edema: No - Other Data Labs, Other Data: CBC, BMP 07/19/17 07:45 Troponin, BNP 07/19/17 01:15 Troponin I 0.03 D B-Natriuretic Peptide 1758.92 H Troponin, BNP 07/19/17 01:15 Troponin I 0.03 D B-Natriuretic Peptide 1758.92 H EKG: MAT @ 123 Tele: PAF with RVR Imaging - Results Chest X-ray: Report Reviewed (Increased consolidation suggestive of acute on chronic process) Cat Scan: Report Reviewed (06/13/[address]: Extensive bilateral patchy consolidation, heavy pleural and diaphragmatic calcification suggestive of asbestosis) Assessment/Plan 06/13/2017 Echo: Borderline cLVH, normal LV size and fxn, mod-severe TR with severe pulm HTN, mod AR, mild MR 1. Acute on chronic hypoxic respiratory failure and hemoptysis referable to 2. Acute excarbation of home O2-dependent COPD, ILD, asbestosis, pulm HTN, PNA 3. Recurrent paroxysmal atrial fibrillation with RVR 4. Multifocal atrial tachycardia 5. Post Medtronic ICD for ventricular arrhythmia at [facility] with monitoring functions suspended 6. HTN/HCVD 7. LV diastolic dysfunction 8. Gout PLAN: 1. Check ABG, BD, O2 to maintain saO2>90%, IV steroids, empiric abx course 2. Change Toprol XL to Cardizem po and IV for rate-control, continue Pradaxa 150 bid 3. Patient to follow-up with Dr. Man for generator change as outpatient once clinically stable 4. Thank you for consultative opportunity
--- NOTE | 2017-07-19 09:35 | PN ---
Progress Note (short form) - Note Progress Note: ID consult imp/reccd 87 year old man with copd on oxygen at the ut, history of pulmonary fibrosis, afib, PPM/Defib- recent admission from home in June 13 to 06/16 s/p fall treated with levaquin and d/gildardo to [place] on levaquin for short term rehab- chest ct that admission with chronic changes bilaterally with question of RLL infiltrate reports continued SOB at ut started on Levaquin 07/17 for peneumonia but became more tachypneic and sent to ED last night low grade temp episode of hemoptysis this am no history of systemic steroids cxray with probable right Lower lobe infiltrate superimposed on chronic changes , LLL infiltrate impending respiratory failure check abg probable HCAP received levaquin this am received vanco/meroopenem would switch to vanco/cefepime f/u cultures sputum culture influenza antigen negative legionella urinary antigen icu eval ordered pulmonary to see hypotension rapid afib pulm htn ppm/defib overall prognosis is guarded Problem List - Problems (1) PNA (pneumonia) Code(s): J18.9 - PNEUMONIA, UNSPECIFIED ORGANISM Qualifiers: Pneumonia type: due to unspecified organism Laterality: bilateral Lung location: lower lobe of lung Qualified Code(s): J18.9 - Pneumonia, unspecified organism (2) COPD with exacerbation Code(s): J44.1 - CHRONIC OBSTRUCTIVE PULMONARY DISEASE W (ACUTE) EXACERBATION (3) Afib Code(s): I48.91 - UNSPECIFIED ATRIAL FIBRILLATION Qualifiers: Atrial fibrillation type: unspecified Qualified Code(s): I48.91 - Unspecified atrial fibrillation (5) Interstitial lung disease Code(s): J84.9 - INTERSTITIAL PULMONARY DISEASE, UNSPECIFIED
[2017-07-19 09:49] LABS: CHLORIDE 105 mmol/L (98-107); POTASSIUM 4.1 mmol/L (3.5-5.1); SODIUM 138 mmol/L (136-145)
[2017-07-19 09:59] LABS: ALBUMIN 2.8 g/dl (3.4-5.0); ALK PHOS 83 U/L (45-117); ANION GAP 15 (8-16); BILIRUBIN,TOTAL 0.5 mg/dL (0.2-1.0); BLOOD UREA NITROGEN 19 mg/dL (7-18); CALCIUM 7.9 mg/dL (8.5-10.1); CO2 18 mmol/L (21-32); CREATININE 1.3 mg/dL (0.7-1.3); GLUCOSE,RANDOM 240 mg/dL (74-106); MAGNESIUM 2.3 mg/dL (1.8-2.4); PHOSPHOROUS 3.7 mg/dL (2.5-4.9); SGOT/AST 21 U/L (15-37); SGPT/ALT 17 U/L (12-78); TOT PROT 6.8 g/dl (6.4-8.2)
[2017-07-19 09:59] LABS: ARTERIAL BLD GAS O2 SATURATION 91.9 % (90-98.9); ARTERIAL BLOOD GAS BASE EXCESS -4.9 meq/l (-2-2); ARTERIAL BLOOD GAS pH 7.39 (7.35-7.45)
[2017-07-19] MEDS ORDERED: METOPROLOL SUCCINATE 25 MG TAB.SR.24H (FP) PO SCH (10:00)
[2017-07-19] MEDS ORDERED: CEFEPIME HCL/D5W 1 GM/50 ML PREMIX BAG IVPB SCH (10:00)
[2017-07-19] MEDS ORDERED: VANCOMYCIN 1,000 MG in DEXTROSE 5%-WATER - 250 ML IVPB SCH (10:00)
[2017-07-19] MEDS ORDERED: CEFEPIME HCL 1 GM VIAL (RESTRICTED TO ID) IVPB SCH (10:00)
[2017-07-19] MEDS ORDERED: MUPIROCIN 2% TOPICAL OINTMENT FOR DECOLONIZATION NS SCH (10:00)
[2017-07-19 10:03] LABS: ALLENS TEST POSITIVE
[2017-07-19] MEDS: dilTIAZem HCL 50 MG/10 ML - 10 ML VIAL IVPUSH PRN (10:08)
--- NOTE | 2017-07-19 10:27 | CONS ---
DATE OF CONSULTATION: DATE OF DICTATION: 07/19/2017 INFECTIOUS DISEASE CONSULTATION REQUESTING PHYSICIAN: Lizy Vargas M.D. HISTORY OF PRESENT ILLNESS: This is an 87-year-old man who was recently hospitalized at [facility] from June 12 to June 16. He has a history of pulmonary fibrosis and COPD. He is oxygen dependent. He was living at home. He sustained a fall at home and came to the emergency room. He was evaluated by Pulmonology and Cardiology. During that admission he had a chest CT that showed chronic bilateral lung changes. He had extensive bilateral patchy consolidation that was largely chronic. A right lower lobe pneumonia was suggested. 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 He was treated with Levaquin during that admission. No systemic steroids. He was discharged for rehab to the long-term, where he has been since that time. He reports his breathing really has not improved much and over the last week has worsened. He finished the course of Levaquin in June. He was discharged on 3 days. Then, on the , his Levaquin was resumed for possible pneumonia. He was sent to the hospital early this morning with shortness of breath and wheezing. He denied any fevers, chills, nausea, vomiting, diarrhea, chest pain or lightheadedness. He does report this morning that he had an episode of hemoptysis. He received vancomycin and meropenem in the emergency room, and has received a dose of Levaquin this morning. 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 PAST SURGICAL HISTORY: Status post cholecystectomy. He has an AICD and pacemaker. FAMILY HISTORY: He is by his brothers and his parents. SOCIAL HISTORY: Prior to his hospitalization in June, he was living alone. He quit smoking 40 years ago. MEDICATIONS: His current medications at the long-term include Ventolin inhaler, Pradaxa, Levaquin, meclizine, Toprol-XL, Centrum, Advair and Spiriva. He has been started on steroids here. REVIEW OF SYSTEMS: As per HPI. PHYSICAL EXAMINATION: Vital Signs: Temperature 100.3, pulse 133, blood pressure 87/60. He is tachypneic, with a respiratory rate of 26. He is saturating 91% on 2 liters. HEENT: He is normocephalic. His eyes are anicteric. He has no thrush. Neck: Supple. Lungs: Scattered wheezes and rhonchi. Diminished breath sounds at the bases. Heart: Tachycardic and irregular. Abdomen: Soft, nontender. Extremities: Without edema. DIAGNOSTIC STUDIES: White count 17.8 this morning. It was 15.2 earlier today. Hemoglobin 12.2, platelets 195. BUN 17, creatinine 1.1. LFTs are normal. BNP 1758. Urinalysis is negative. Influenza screen is negative. Blood cultures are pending. Chest x-ray has bilateral infiltrates on top of chronic infiltrates, right worse than left. ASSESSMENT: In summary, this is an 87-year-old man with: 1. Impending respiratory failure, probable We will check an ABG. He received Levaquin this morning, vancomycin and meropenem in the ER. We will switch to vancomycin and cefepime. Follow up cultures. Sputum culture. Influenza antigen is negative. Would obtain a Legionella urinary antigen. ICU evaluation has been ordered by the primary doctor, with Pulmonary to see as well. 2. Hypotension with rapid atrial fibrillation. He is to be seen by Cardiology. Overall prognosis is quite guarded at this time, given his age and underlying medical conditions. JEREMIAS VANCE M.D. [id number]
--- NOTE | 2017-07-19 10:46 | EKG ---
Test Reason : Blood Pressure : / mmHG Vent. Rate : 123 BPM Atrial Rate : 123 BPM P-R Int : 196 ms QRS Dur : 086 ms QT Int : 272 ms P-R-T Axes : 057 -44 052 degrees QTc Int : 389 ms SINUS TACHYCARDIA WITH FREQUENT PREMATURE VENTRICULAR COMPLEXES POSSIBLE LEFT ATRIAL ENLARGEMENT LEFT AXIS DEVIATION ABNORMAL ECG WHEN COMPARED WITH ECG OF 12-JUN-2017 07:58, SINUS RHYTHM HAS REPLACED ATRIAL FIBRILLATION ST NO LONGER DEPRESSED IN ANTERIOR LEADS Confirmed by DANIELLA CASTRO MD ([id number]) on 07/19/2017 10:46:23 AM Referred By: Confirmed By:DANIELLA CASTRO MD
[2017-07-19] MEDS ORDERED: dilTIAZem HCL 30 MG TABLET (FP) PO ONE (10:50)
[2017-07-19] MEDS: FLUTICASONE/SALMETEROL 100 MCG/50 MCG DISKUS IH SCH ×2 (10:57→22:17)
[2017-07-19] MEDS: TIOTROPIUM BROMIDE 18 MCG/INH (DEVICE W/ 5 CAPSULES) IH SCH (10:57)
[2017-07-19] MEDS: CEFEPIME HCL/D5W 1 GM/50 ML BAG IVPB SCH ×2 (11:01→17:22)
--- NOTE | 2017-07-19 11:59 | PN ---
Progress Note (short form) - Note Progress Note: PULMONARY CONSULTATION DICTATED 07/19/17 IMP ACUTE ON CHRONIC HYPOXEMIC RESPIRATORY FAILURE PNEUMONIA HEMOPTYSIS SECONDARY TO ABOVE ADVANCE COPD O2 DEPENDENT ILD/PULMONARY FIBROSIS,LIKELY ASBESTOSIS ASBESTOS PLEURAL DISEASE HYPOTENSION RAPID AFIB LV DIASTOLIC DYSFUNCTION PLAN IV ANTIBIOTICS PER ID INHALED BRONCHODILATORS STEROIDS O2 RATE CONTROL PER CARDIOLOGY F/U CHEST X-RAYS STRICT I+OS CULTURES URINARY ANTIGENS DR ZAMORANO Problem List - Problems (1) Acute on chronic respiratory failure with hypoxemia Code(s): J96.21 - ACUTE AND CHRONIC RESPIRATORY FAILURE WITH HYPOXIA (2) COPD with exacerbation Code(s): J44.1 - CHRONIC OBSTRUCTIVE PULMONARY DISEASE W (ACUTE) EXACERBATION (3) Interstitial lung disease Code(s): J84.9 - INTERSTITIAL PULMONARY DISEASE, UNSPECIFIED (4) PNA (pneumonia) Code(s): J18.9 - PNEUMONIA, UNSPECIFIED ORGANISM Qualifiers: Pneumonia type: due to unspecified organism Laterality: bilateral Lung location: lower lobe of lung Qualified Code(s): J18.9 - Pneumonia, unspecified organism (5) Sepsis Code(s): A41.9 - SEPSIS, UNSPECIFIED ORGANISM (6) Rapid atrial fibrillation Code(s): I48.91 - UNSPECIFIED ATRIAL FIBRILLATION (7) Hypotension Code(s): I95.9 - HYPOTENSION, UNSPECIFIED (8) 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
[2017-07-19] MEDS: dilTIAZem HCL 30 MG TABLET (FP) PO SCH ×2 (14:15→22:00)
--- NOTE | 2017-07-19 14:22 | CONS ---
DATE OF CONSULTATION: 07/19/2016 REFERRING PHYSICIAN: Lizy Vargas M.D. 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 He is a intermediate resident and was transferred to [facility] with increasing shortness of breath, dyspnea on exertion, fever, and hemoptysis. The patient apparently at the intermediate was treated with antibiotics and despite these medications the symptoms worsened and at this time he presented to the emergency room. In the ER a chest x-ray was performed which showed increasing bilateral infiltrates. He was also noted to be in rapid atrial fibrillation and hypotensive and at the time he was started on IV fluids and he was transferred to the telemetry unit for further monitoring. The patient denies any chest pains, nausea, vomiting, or diaphoresis. He states that over the past couple of days he started noticed increasing shortness of breath and dyspnea on exertion. He also has a cough productive of yellow sputum and he had epistaxis also and had occasional blood tinged sputum. He has a history of smoking and quit years ago. He is unsure whether or not he has had a history of exposure to asbestos in the past. 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 REVIEW OF SYSTEMS: Positive cough, positive shortness of breath, positive hemoptysis. No chest pain, no palpitations. No nausea, no vomiting, and no diaphoresis. MEDICATIONS: Prior to admission include Albuterol, Spiriva, Pradaxa, Toprol, Advair, Levaquin and Antivert. CURRENT MEDICATIONS: Include Solu-Medrol, Advair, maxipen, Vancomycin, Bactroban, Pradaxa, Spiriva, albuterol, DuoNeb, Cardizem,, and Theragran-M. PHYSICAL EXAMINATION: General: Mr. Beatty is an elderly white male well developed, well nourished, awake, alert, and dyspneic with occasional congestive cough but no acute respiratory distress. Vital Signs: He is currently afebrile. Blood pressure is 86/56, heart rate is 130, and oxygen saturation is 92% on 2 L nasal cannula. HEENT: Head is normocephalic, atraumatic. Neck: Supple. Heart: irreg,tachycardic. Normal S1, S2. Chest: Bilateral rhonchi. Abdomen: Soft. Bowel sounds are positive. Extremities: No cyanosis or edema. LABORATORY DATA: BUN 19, creatinine 1.3, BNP of 17.58. Blood gas: PH of 7.39 , PCO2 of 32, PO2 of 66, bicarbonate of 18, saturation of 91 unknown quantity of oxygen. WBC 17.8, hemoglobin 12.2, hematocrit 37.7, and platelet count of 195,000. Chest x-ray reveals an increase in pulmonary vascular changes bilaterally, likely an increase of consolidation with retrocardiac in the left lower lobe and extensive pleural calcifications on the right. IMPRESSION: 1. [id number] hypoxemic respiratory failure. A. Likely pneumonia. 2. Chronic obstructive pulmonary disease with exacerbation. 3. 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 4. Rapid atrial fibrillation. 5. Hemoptysis secondary to pneumonia. 6. Left ventricular diastolic dysfunction. 7. Hypertension with hypertensive cardiovascular disease. 8. Gout. PLAN: Supplemental oxygen with inhaled bronchodilators, rate control as per Cardiology, broad and spectrum antibiotics as per Infectious Disease. Obtain a follow-up chest x-ray. Strict Is and Os. Monitor electrolytes. Supplemental oxygen. GUTSABO ZAMORANO M.D. [id number] MTDD
[2017-07-19] MEDS ORDERED: PT OWN MED DRAWER 7, Y5N ONE ×2 (17:14→18:11)
[2017-07-19] MEDS ORDERED: CHLORHEXIDINE GLUCONATE 4% CLEANSER FOR DECOLONIZATION TP SCH (22:00)
[2017-07-20] MEDS: CEFEPIME HCL/D5W 1 GM/50 ML BAG IVPB SCH ×3 (01:00→17:40)
[2017-07-20] MEDS: methylPREDNISolone NA SUCC 40 MG/1 ML VIAL IVPUSH SCH ×4 (03:30→21:17)
[2017-07-20] MEDS: SODIUM CHLORIDE 1,000 ML IV SCH (06:31)
[2017-07-20] MEDS: dilTIAZem HCL 30 MG TABLET (FP) PO SCH ×3 (06:32→21:18)
[2017-07-20] MEDS: ALBUTEROL SO4 2.5/IPRATROPIUM 0.5 INH SOL 3 ML VIAL.NEB. NEB SCH ×4 (08:30→21:35)
[2017-07-20] MEDS: VANCOMYCIN 1,000 MG in DEXTROSE 5%-WATER - 250 ML IVPB SCH (09:34)
[2017-07-20] MEDS: FLUTICASONE/SALMETEROL 100 MCG/50 MCG DISKUS IH SCH ×2 (09:35→21:25)
[2017-07-20] MEDS: MULTIVITAMINS THER W-MINERALS COMBO TABLET (FP) PO SCH (09:35)
[2017-07-20] MEDS: DABIGATRAN ETEXILATE MESYLATE 150 MG CAPSULE PO SCH ×2 (09:35→21:18)
[2017-07-20 09:44] LABS: BASO % 0.1 % (0-2.0); HEMATOCRIT 32.1 % (35.4-49); HEMOGLOBIN 10.4 GM/dL (11.7-16.9); LYMPH % 3.9 % (8-40); MCHC 32.5 g/dl (32.0-35.9); MEAN CELL VOLUME 95.4 fl (80-96); MEAN PLT VOLUME 7.6 fl (7.5-11.1); MONO % 2.5 % (3.8-10.2); NEUT % 93.5 % (42.8-82.8); PLATELET COUNT 170 K/MM3 (134-434); RBC 3.37 M/mm3 (4.00-5.60); RDW 14.2 % (11.9-15.9); WHITE BLOOD COUNT 12.3 K/mm3 (4.0-10.0)
[2017-07-20] MEDS ORDERED: VANCOMYCIN 1 GRAM (PRE-DOCKED) 1,000 MG/250 ML BAG IVPB SCH (10:00)
--- NOTE | 2017-07-20 10:04 | PN ---
Progress Note, Physician History of Present Illness: PT C/O SOB AND DIZZINESS - Current Medication List Current Medications: Active Medications Albuterol Sulfate (Ventolin 0.083% Nebulizer Soln -) 1 amp NEB Q4H PRN PRN Reason: SHORT OF BREATH/WHEEZING Albuterol/Ipratropium (Duoneb -) 1 amp NEB RQID [facility] Last Admin: 07/20/17 08:30 Dose: 1 amp Dabigatran (Pradaxa -) 150 mg PO BID [facility] Last Admin: 07/20/17 09:35 Dose: 150 mg Diltiazem HCl (Cardizem -) 30 mg PO TID [facility] Last Admin: 07/20/17 06:32 Dose: 30 mg Diltiazem HCl (Cardizem Injection -) 10 mg IVPUSH Q4H PRN PRN Reason: TACHYCARDIA Last Admin: 07/19/17 10:08 Dose: 10 mg Sodium Chloride (Normal Saline -) 1,000 mls @ 100 mls/hr IV ASDIR [facility] Last Admin: 07/20/17 06:31 Dose: 100 mls/hr Vancomycin HCl 1,000 mg/ (Dextrose) 250 mls @ 166.667 mls/hr IVPB DAILY [facility] Last Admin: 07/20/17 09:34 Dose: 166.667 mls/hr Cefepime HCl (Maxipime 1 Gm Premix Ivpb) 1 gm in 50 mls @ 100 mls/hr IVPB Q8H- IV [facility] Last Admin: 07/20/17 09:35 Dose: 100 mls/hr Methylprednisolone Sodium Succinate (Solu-Medrol -) 40 mg IVPUSH Q6H-IV [facility] Last Admin: 07/20/17 09:34 Dose: 40 mg Multivitamins/Minerals (Theragran-M) 1 each PO DAILY [facility] Last Admin: 07/20/17 09:35 Dose: 1 each Fluticasone/Salmeterol (Advair 100mcg/50mcg -) 1 puff IH BID [facility] Last Admin: 07/20/17 09:35 Dose: 1 puff Tiotropium [place] (Spiriva -) 1 puff IH DAILY [facility] Last Admin: 07/19/17 10:57 Dose: Not Given - Objective Vital Signs: Vital Signs Temperature 97.2 F L 07/20/17 02:00 Pulse Rate 66 07/20/17 09:48 Respiratory Rate 20 07/20/17 06:00 Blood Pressure 115/70 07/20/17 06:00 O2 Sat by Pulse Oximetry (%) 94 L 07/20/17 09:48 Cardiovascular: Yes: S1, S2 Respiratory: Yes: Diminished, Rhonchi Gastrointestinal: Yes: Normal Bowel Sounds, Soft. No: Tenderness Neurological: Yes: Weakness Labs: CBC, BMP 07/20/17 09:25 Problem List - Problems (1) Sepsis Assessment/Plan: -as evidenced by elevated WBC and HR - meropenem and vanco given in ED. -Levaquin and ID consult - cxr -dc ivf Code(s): A41.9 - SEPSIS, UNSPECIFIED ORGANISM (2) COPD with exacerbation Assessment/Plan: nebs iv steroids pulm consult Code(s): J44.1 - CHRONIC OBSTRUCTIVE PULMONARY DISEASE W (ACUTE) EXACERBATION (3) PNA (pneumonia) Assessment/Plan: as above iv abx Code(s): J18.9 - PNEUMONIA, UNSPECIFIED ORGANISM Qualifiers: Pneumonia type: due to unspecified organism Laterality: bilateral Lung location: lower lobe of lung Qualified Code(s): J18.9 - Pneumonia, unspecified organism (4) Afib Assessment/Plan: monitor rate as sepsis treated meds limited due to bp cardio on pradaxa Code(s): I48.91 - UNSPECIFIED ATRIAL FIBRILLATION Qualifiers: Atrial fibrillation type: unspecified Qualified Code(s): I48.91 - Unspecified atrial fibrillation (5) Diastolic dysfunction without heart failure Assessment/Plan: monitor Code(s): I51.9 - HEART DISEASE, UNSPECIFIED (6) Ventricular arrythmia, status post ICD Assessment/Plan: per cardio
--- NOTE | 2017-07-20 10:09 | PN ---
Progress Note, Physician Chief Complaint: Events noted Generalized weakness AF with periods of increased ventricular response History of Present Illness: Patient was seen and examined. Awake and alert. Chart was reviewed Denies chest pain or palpitations Complains of possible hematuria and shortness of breath - Current Medication List Current Medications: Active Medications Albuterol Sulfate (Ventolin 0.083% Nebulizer Soln -) 1 amp NEB Q4H PRN PRN Reason: SHORT OF BREATH/WHEEZING Albuterol/Ipratropium (Duoneb -) 1 amp NEB RQID [facility] Last Admin: 07/20/17 08:30 Dose: 1 amp Dabigatran (Pradaxa -) 150 mg PO BID [facility] Last Admin: 07/20/17 09:35 Dose: 150 mg Diltiazem HCl (Cardizem -) 30 mg PO TID [facility] Last Admin: 07/20/17 06:32 Dose: 30 mg Diltiazem HCl (Cardizem Injection -) 10 mg IVPUSH Q4H PRN PRN Reason: TACHYCARDIA Last Admin: 07/19/17 10:08 Dose: 10 mg Sodium Chloride (Normal Saline -) 1,000 mls @ 100 mls/hr IV ASDIR [facility] Last Admin: 07/20/17 06:31 Dose: 100 mls/hr Vancomycin HCl 1,000 mg/ (Dextrose) 250 mls @ 166.667 mls/hr IVPB DAILY [facility] Last Admin: 07/20/17 09:34 Dose: 166.667 mls/hr Cefepime HCl (Maxipime 1 Gm Premix Ivpb) 1 gm in 50 mls @ 100 mls/hr IVPB Q8H- IV [facility] Last Admin: 07/20/17 09:35 Dose: 100 mls/hr Methylprednisolone Sodium Succinate (Solu-Medrol -) 40 mg IVPUSH Q6H-IV [facility] Last Admin: 07/20/17 09:34 Dose: 40 mg Multivitamins/Minerals (Theragran-M) 1 each PO DAILY [facility] Last Admin: 07/20/17 09:35 Dose: 1 each Fluticasone/Salmeterol (Advair 100mcg/50mcg -) 1 puff IH BID [facility] Last Admin: 07/20/17 09:35 Dose: 1 puff Tiotropium [place] (Spiriva -) 1 puff IH DAILY [facility] Last Admin: 07/19/17 10:57 Dose: Not Given - Objective Vital Signs: Vital Signs Temperature 97.2 F L 07/20/17 02:00 Pulse Rate 66 07/20/17 09:48 Respiratory Rate 20 07/20/17 06:00 Blood Pressure 115/70 07/20/17 06:00 O2 Sat by Pulse Oximetry (%) 94 L 07/20/17 09:48 Eyes: Yes: PERRL Neck: Yes: Supple Cardiovascular: Yes: Pulse Irregular, S1, S2 Respiratory: Yes: Diminished Gastrointestinal: Yes: Normal Bowel Sounds, Soft. No: Tenderness Edema: No Additional Findings/Remarks: - Review of Systems Constitutional: (+) Weakness. denies: Chills, Fever Cardiovascular: (+) Shortness of Breath, denies: Chest Pain, Palpitations Respiratory: denies: SOB, denies: Cough, Hemoptysis, Orthopnea, PND Gastrointestinal: denies: Abdominal Pain, Constipation, Diarrhea, Melena, Nausea , Rectal Bleeding, Vomiting Musculoskeletal: denies: Joint Pain Neurological: denies: Weakness. 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 Code(s): J92.0 - PLEURAL PLAQUE WITH PRESENCE OF ASBESTOS (4) Interstitial lung disease Code(s): J84.9 - INTERSTITIAL PULMONARY DISEASE, UNSPECIFIED (5) PNA (pneumonia) Code(s): J18.9 - PNEUMONIA, UNSPECIFIED ORGANISM Qualifiers: Pneumonia type: due to unspecified organism Laterality: bilateral Lung location: lower lobe of lung Qualified Code(s): J18.9 - Pneumonia, unspecified organism (6) Rapid atrial fibrillation Code(s): I48.91 - UNSPECIFIED ATRIAL FIBRILLATION (8) Renal insufficiency Code(s): N28.9 - DISORDER OF KIDNEY AND URETER, UNSPECIFIED (9) Syncope Code(s): R55 - SYNCOPE AND COLLAPSE Qualifiers: Syncope type: unspecified Qualified Code(s): R55 - Syncope and collapse Assessment/Plan 1. Atrial fibrillation with periods of increased ventricular response 2. Underlying pulmonary fibrosis/ILD, asbestosis, pulmonary and pleural disease , pulmonary infiltrates suggests pneumonia and presence of pleural effusion 3. Post [employer] ICD for ventricular arrhythmia at [facility] with monitoring functions suspended 4. HTN/HCVD 5. 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 Gout PLAN: 1. Continue antibiotic coverage as per primary service. Continue steroid taper and bronchodilators 2. Beta jacob was switched to Cardizem - titrate for rate control 3. Continue Pradaxa 150 bid 4. Clarify when he is scheduled for generator change on his defibrillator (he has been scheduled with Dr. Osvaldo Gaston as outpatient)- will need this as his ICD has reached [facility] Further plans are to follow Mono Reilly MD
[2017-07-20 10:38] LABS: ALBUMIN 2.5 g/dl (3.4-5.0); ANION GAP 10 (8-16); BILIRUBIN,TOTAL 0.4 mg/dL (0.2-1.0); BLOOD UREA NITROGEN 19 mg/dL (7-18); CALCIUM 7.7 mg/dL (8.5-10.1); CHLORIDE 108 mmol/L (98-107); CO2 23 mmol/L (21-32); CREATININE 0.8 mg/dL (0.7-1.3); GLUCOSE,RANDOM 144 mg/dL (74-106); POTASSIUM 4.1 mmol/L (3.5-5.1); SGOT/AST 26 U/L (15-37); SGPT/ALT 21 U/L (12-78); SODIUM 141 mmol/L (136-145); TOT PROT 6.2 g/dl (6.4-8.2)
[2017-07-20 10:40] LABS: ALK PHOS 71 U/L (45-117)
[2017-07-20] MEDS: TIOTROPIUM BROMIDE 18 MCG/INH (DEVICE W/ 5 CAPSULES) IH SCH (12:42)
[2017-07-20] MEDS: dilTIAZem HCL 50 MG/10 ML - 10 ML VIAL IVPUSH PRN ×2 (12:47→16:45)
--- NOTE | 2017-07-20 14:21 | PN ---
Progress Note (short form) - Note Progress Note: Congested cough and SOB about the same No CP. Some blood tinged sputum. Intake & Output 07/17/17 07/18/17 07/19/17 07/20/17 23:59 23:59 23:59 23:59 Intake Total 1184 1200 Output Total 700 Balance 484 1200 Weight 156 lb 156 lb Last Vital Signs Temp Pulse Resp BP Pulse Ox 98 F 100 H 20 117/80 94 L 07/20/17 10:00 07/20/17 10:00 07/20/17 10:00 07/20/17 10:00 07/20/17 09:48 Active Medications Albuterol Sulfate (Ventolin 0.083% Nebulizer Soln -) 1 amp NEB Q4H PRN PRN Reason: SHORT OF BREATH/WHEEZING Albuterol/Ipratropium (Duoneb -) 1 amp NEB RQID [facility] Last Admin: 07/20/17 12:08 Dose: 1 amp Dabigatran (Pradaxa -) 150 mg PO BID [facility] Last Admin: 07/20/17 09:35 Dose: 150 mg Diltiazem HCl (Cardizem -) 30 mg PO TID [facility] Last Admin: 07/20/17 06:32 Dose: 30 mg Diltiazem HCl (Cardizem Injection -) 10 mg IVPUSH Q4H PRN PRN Reason: TACHYCARDIA Last Admin: 07/20/17 12:47 Dose: 10 mg Vancomycin HCl 1,000 mg/ (Dextrose) 250 mls @ 166.667 mls/hr IVPB DAILY [facility] Last Admin: 07/20/17 09:34 Dose: 166.667 mls/hr Cefepime HCl (Maxipime 1 Gm Premix Ivpb) 1 gm in 50 mls @ 100 mls/hr IVPB Q8H- IV [facility] Last Admin: 07/20/17 09:35 Dose: 100 mls/hr Methylprednisolone Sodium Succinate (Solu-Medrol -) 40 mg IVPUSH Q6H-IV [facility] Last Admin: 07/20/17 09:34 Dose: 40 mg Multivitamins/Minerals (Theragran-M) 1 each PO DAILY [facility] Last Admin: 07/20/17 09:35 Dose: 1 each Fluticasone/Salmeterol (Advair 100mcg/50mcg -) 1 puff IH BID [facility] Last Admin: 07/20/17 09:35 Dose: 1 puff Tiotropium [place] (Spiriva -) 1 puff IH DAILY [facility] Last Admin: 07/20/17 12:42 Dose: 1 inh Eyes: Yes: PERRL Neck: Yes: Supple Cardiovascular: Yes: Pulse Irregular, S1, S2 Respiratory: Yes: Bilateral rhonchi / wheeze Gastrointestinal: Yes: Normal Bowel Sounds, Soft. No: Tenderness Edema: No Laboratory Results - last 24 hr 07/20/17 07/20/17 09:25 09:25 WBC 12.3 H D RBC 3.37 L Hgb 10.4 L D Hct 32.1 L MCV 95.4 MCH 31.0 MCHC 32.5 RDW 14.2 Plt Count 170 MPV 7.6 Neutrophils % 93.5 H Lymphocytes % 3.9 L D Monocytes % 2.5 L Eosinophils % 0.0 Basophils % 0.1 Sodium 141 Potassium 4.1 Chloride 108 H Carbon Dioxide 23 D Anion Gap 10 BUN 19 H Creatinine 0.8 D Creat Clearance w eGFR > 60 Random Glucose 144 H D Calcium 7.7 L Total Bilirubin 0.4 AST 26 D ALT 21 D Alkaline Phosphatase 71 Creatine Kinase 186 Creatine Kinase Index 2.5 CK-MB (CK-2) 4.717 H Troponin I 0.05 Total Protein 6.2 L Albumin 2.5 L Problem List - Problems (1) Acute on chronic respiratory failure with hypoxemia Code(s): J96.21 - ACUTE AND CHRONIC RESPIRATORY FAILURE WITH HYPOXIA (2) COPD with exacerbation Code(s): J44.1 - CHRONIC OBSTRUCTIVE PULMONARY DISEASE W (ACUTE) EXACERBATION (3) Interstitial lung disease Code(s): J84.9 - INTERSTITIAL PULMONARY DISEASE, UNSPECIFIED (4) PNA (pneumonia) Code(s): J18.9 - PNEUMONIA, UNSPECIFIED ORGANISM Qualifiers: Pneumonia type: due to unspecified organism Laterality: bilateral Lung location: lower lobe of lung Qualified Code(s): J18.9 - Pneumonia, unspecified organism (5) Sepsis Code(s): A41.9 - SEPSIS, UNSPECIFIED ORGANISM (6) Rapid atrial fibrillation Code(s): I48.91 - UNSPECIFIED ATRIAL FIBRILLATION (7) Hypotension Code(s): I95.9 - HYPOTENSION, UNSPECIFIED (8) 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
--- NOTE | 2017-07-20 16:30 | PN ---
Progress Note, Physician History of Present Illness: Dyspneic at rest Still with bloody sputum production No c/o chest pain, F/C - Current Medication List Current Medications: Active Medications Albuterol Sulfate (Ventolin 0.083% Nebulizer Soln -) 1 amp NEB Q4H PRN PRN Reason: SHORT OF BREATH/WHEEZING Albuterol/Ipratropium (Duoneb -) 1 amp NEB RQID [facility] Last Admin: 07/20/17 12:08 Dose: 1 amp Dabigatran (Pradaxa -) 150 mg PO BID [facility] Last Admin: 07/20/17 09:35 Dose: 150 mg Diltiazem HCl (Cardizem -) 30 mg PO TID [facility] Last Admin: 07/20/17 14:28 Dose: 30 mg Diltiazem HCl (Cardizem Injection -) 10 mg IVPUSH Q4H PRN PRN Reason: TACHYCARDIA Last Admin: 07/20/17 12:47 Dose: 10 mg Vancomycin HCl 1,000 mg/ (Dextrose) 250 mls @ 166.667 mls/hr IVPB DAILY [facility] Last Admin: 07/20/17 09:34 Dose: 166.667 mls/hr Cefepime HCl (Maxipime 1 Gm Premix Ivpb) 1 gm in 50 mls @ 100 mls/hr IVPB Q8H- IV [facility] Last Admin: 07/20/17 09:35 Dose: 100 mls/hr Methylprednisolone Sodium Succinate (Solu-Medrol -) 40 mg IVPUSH Q6H-IV [facility] Last Admin: 07/20/17 14:28 Dose: 40 mg Multivitamins/Minerals (Theragran-M) 1 each PO DAILY [facility] Last Admin: 07/20/17 09:35 Dose: 1 each Fluticasone/Salmeterol (Advair 100mcg/50mcg -) 1 puff IH BID [facility] Last Admin: 07/20/17 09:35 Dose: 1 puff Tiotropium [place] (Spiriva -) 1 puff IH DAILY [facility] Last Admin: 07/20/17 12:42 Dose: 1 inh - Objective Vital Signs: Vital Signs Temperature 97.8 F 07/20/17 14:21 Pulse Rate 114 H 07/20/17 14:21 Respiratory Rate 20 07/20/17 14:21 Blood Pressure 113/60 07/20/17 14:21 O2 Sat by Pulse Oximetry (%) 94 L 07/20/17 09:48 Constitutional: Yes: Moderate Distress Cardiovascular: Yes: Regular Rate and Rhythm, Tachycardia, S1, S2 Respiratory: Yes: Rhonchi, Wheezes Gastrointestinal: Yes: Normal Bowel Sounds, Soft. No: Tenderness Edema: No Labs: CBC, BMP 07/20/17 09:25 07/20/17 09:25 Assessment/Plan Pneumonia Exacerbation COPD Hemoptysis PCN allergy Contine empiric vanco/cefepime Steroids/ bronchodilators
[2017-07-20] MEDS ORDERED: PT OWN MED DRAWER 7, Y5N ONE (16:42)
[2017-07-20] MEDS ORDERED: ACETAMINOPHEN 325 MG TABLET (FP) PO PRN (20:11)
[2017-07-21] MEDS ORDERED: PT OWN MED DRAWER 7, Y5N ONE ×4 (01:56→21:44)
[2017-07-21] MEDS: methylPREDNISolone NA SUCC 40 MG/1 ML VIAL IVPUSH SCH ×4 (02:04→21:40)
[2017-07-21] MEDS: CEFEPIME HCL/D5W 1 GM/50 ML BAG IVPB SCH ×3 (02:04→17:24)
[2017-07-21] MEDS: dilTIAZem HCL 30 MG TABLET (FP) PO SCH (05:57)
[2017-07-21 07:43] LABS: BASO % 0.1 % (0-2.0); HEMOGLOBIN 11.5 GM/dL (11.7-16.9); LYMPH % 4.1 % (8-40); MCH 31.6 pg (25.7-33.7); MCHC 32.9 g/dl (32.0-35.9); MEAN PLT VOLUME 7.7 fl (7.5-11.1); MONO % 2.9 % (3.8-10.2); NEUT % 92.9 % (42.8-82.8); PLATELET COUNT 209 K/MM3 (134-434); RBC 3.64 M/mm3 (4.00-5.60); RDW 14.6 % (11.9-15.9)
[2017-07-21] MEDS: ALBUTEROL SO4 2.5/IPRATROPIUM 0.5 INH SOL 3 ML VIAL.NEB. NEB SCH ×4 (07:45→21:41)
[2017-07-21 08:10] LABS: CHLORIDE 108 mmol/L (98-107); POTASSIUM 4.6 mmol/L (3.5-5.1); SODIUM 141 mmol/L (136-145)
[2017-07-21 08:29] LABS: ALBUMIN 2.8 g/dl (3.4-5.0); ALK PHOS 73 U/L (45-117); ANION GAP 9 (8-16); BILIRUBIN,TOTAL 0.6 mg/dL (0.2-1.0); BLOOD UREA NITROGEN 21 mg/dL (7-18); CALCIUM 8.4 mg/dL (8.5-10.1); CO2 24 mmol/L (21-32); GLUCOSE,RANDOM 178 mg/dL (74-106); SGOT/AST 19 U/L (15-37); SGPT/ALT 25 U/L (12-78); TOT PROT 6.8 g/dl (6.4-8.2)
--- NOTE | 2017-07-21 09:06 | PN ---
Progress Note, Physician History of Present Illness: PT C/O SOB AND DIZZINESS - Current Medication List Current Medications: Active Medications Acetaminophen (Tylenol -) 650 mg PO Q6H PRN PRN Reason: PAIN Last Admin: 07/20/17 20:34 Dose: 650 mg Albuterol Sulfate (Ventolin 0.083% Nebulizer Soln -) 1 amp NEB Q4H PRN PRN Reason: SHORT OF BREATH/WHEEZING Albuterol/Ipratropium (Duoneb -) 1 amp NEB RQID COUNTS INCLUDE 234 BEDS AT THE [facility] Last Admin: 07/21/17 07:45 Dose: 1 amp Dabigatran (Pradaxa -) 150 mg PO BID COUNTS INCLUDE 234 BEDS AT THE [facility] Last Admin: 07/20/17 21:18 Dose: 150 mg Diltiazem HCl (Cardizem -) 30 mg PO TID COUNTS INCLUDE 234 BEDS AT THE [facility] Last Admin: 07/21/17 05:57 Dose: 30 mg Diltiazem HCl (Cardizem Injection -) 10 mg IVPUSH Q4H PRN PRN Reason: TACHYCARDIA Last Admin: 07/20/17 16:45 Dose: 10 mg Vancomycin HCl 1,000 mg/ (Dextrose) 250 mls @ 166.667 mls/hr IVPB DAILY COUNTS INCLUDE 234 BEDS AT THE [facility] Last Admin: 07/20/17 09:34 Dose: 166.667 mls/hr Cefepime HCl (Maxipime 1 Gm Premix Ivpb) 1 gm in 50 mls @ 100 mls/hr IVPB Q8H- IV COUNTS INCLUDE 234 BEDS AT THE [facility] Last Admin: 07/21/17 02:04 Dose: 100 mls/hr Methylprednisolone Sodium Succinate (Solu-Medrol -) 40 mg IVPUSH Q6H-IV COUNTS INCLUDE 234 BEDS AT THE [facility] Last Admin: 07/21/17 02:04 Dose: 40 mg Multivitamins/Minerals (Theragran-M) 1 each PO DAILY COUNTS INCLUDE 234 BEDS AT THE [facility] Last Admin: 07/20/17 09:35 Dose: 1 each Fluticasone/Salmeterol (Advair 100mcg/50mcg -) 1 puff IH BID COUNTS INCLUDE 234 BEDS AT THE [facility] Last Admin: 07/20/17 21:25 Dose: 1 puff Tiotropium [place] (Spiriva -) 1 puff IH DAILY COUNTS INCLUDE 234 BEDS AT THE [facility] Last Admin: 07/20/17 12:42 Dose: 1 inh - Objective Vital Signs: Vital Signs Temperature 97.3 F L 07/21/17 06:00 Pulse Rate 76 07/21/17 06:00 Respiratory Rate 19 01/19/18 06:00 Blood Pressure 118/78 07/21/17 06:00 O2 Sat by Pulse Oximetry (%) 98 07/20/17 21:00 Cardiovascular: Yes: Regular Rate and Rhythm Respiratory: Yes: Regular, CTA Bilaterally Gastrointestinal: Yes: Normal Bowel Sounds, Soft Labs: CBC, BMP 07/21/17 06:20 07/21/17 06:20 Problem List - Problems (1) Sepsis Assessment/Plan: -as evidenced by elevated WBC and HR - meropenem and vanco given in ED. -Levaquin and ID consult - cxr -dc ivf Code(s): A41.9 - SEPSIS, UNSPECIFIED ORGANISM (2) COPD with exacerbation Assessment/Plan: nebs iv steroids pulm consult Code(s): J44.1 - CHRONIC OBSTRUCTIVE PULMONARY DISEASE W (ACUTE) EXACERBATION (3) PNA (pneumonia) Assessment/Plan: as above iv abx Code(s): J18.9 - PNEUMONIA, UNSPECIFIED ORGANISM Qualifiers: Pneumonia type: due to unspecified organism Laterality: bilateral Lung location: lower lobe of lung Qualified Code(s): J18.9 - Pneumonia, unspecified organism (4) Afib Assessment/Plan: monitor rate as sepsis treated meds limited due to bp cardio on pradaxa Code(s): I48.91 - UNSPECIFIED ATRIAL FIBRILLATION Qualifiers: Atrial fibrillation type: unspecified Qualified Code(s): I48.91 - Unspecified atrial fibrillation (5) Diastolic dysfunction without heart failure Assessment/Plan: monitor Code(s): I51.9 - HEART DISEASE, UNSPECIFIED (6) Ventricular arrythmia, status post ICD Assessment/Plan: per cardio
[2017-07-21] MEDS: DABIGATRAN ETEXILATE MESYLATE 150 MG CAPSULE PO SCH ×2 (09:10→21:40)
[2017-07-21] MEDS: MULTIVITAMINS THER W-MINERALS COMBO TABLET (FP) PO SCH (09:10)
[2017-07-21] MEDS: VANCOMYCIN 1,000 MG in DEXTROSE 5%-WATER - 250 ML IVPB SCH (09:10)
[2017-07-21] MEDS: FLUTICASONE/SALMETEROL 100 MCG/50 MCG DISKUS IH SCH ×2 (09:20→21:44)
[2017-07-21] MEDS: TIOTROPIUM BROMIDE 18 MCG/INH (DEVICE W/ 5 CAPSULES) IH SCH (09:21)
--- NOTE | 2017-07-21 10:12 | PN ---
Progress Note, Physician History of Present Illness: Dyspnea, hemoptysis resolving, remains rate-controlled afib. - Current Medication List Current Medications: Active Medications Acetaminophen (Tylenol -) 650 mg PO Q6H PRN PRN Reason: PAIN Last Admin: 07/20/17 20:34 Dose: 650 mg Albuterol Sulfate (Ventolin 0.083% Nebulizer Soln -) 1 amp NEB Q4H PRN PRN Reason: SHORT OF BREATH/WHEEZING Albuterol/Ipratropium (Duoneb -) 1 amp NEB RQID [facility] Last Admin: 07/21/17 07:45 Dose: 1 amp Dabigatran (Pradaxa -) 150 mg PO BID [facility] Last Admin: 07/21/17 09:10 Dose: 150 mg Diltiazem HCl (Cardizem -) 30 mg PO TID [facility] Last Admin: 07/21/17 05:57 Dose: 30 mg Diltiazem HCl (Cardizem Injection -) 10 mg IVPUSH Q4H PRN PRN Reason: TACHYCARDIA Last Admin: 07/20/17 16:45 Dose: 10 mg Vancomycin HCl 1,000 mg/ (Dextrose) 250 mls @ 166.667 mls/hr IVPB DAILY [facility] Last Admin: 07/21/17 09:10 Dose: 166.667 mls/hr Cefepime HCl (Maxipime 1 Gm Premix Ivpb) 1 gm in 50 mls @ 100 mls/hr IVPB Q8H- IV [facility] Last Admin: 07/21/17 09:10 Dose: 100 mls/hr Methylprednisolone Sodium Succinate (Solu-Medrol -) 40 mg IVPUSH Q6H-IV [facility] Last Admin: 07/21/17 10:08 Dose: 40 mg Multivitamins/Minerals (Theragran-M) 1 each PO DAILY [facility] Last Admin: 07/21/17 09:10 Dose: 1 each Fluticasone/Salmeterol (Advair 100mcg/50mcg -) 1 puff IH BID [facility] Last Admin: 07/21/17 09:20 Dose: 1 puff Tiotropium [place] (Spiriva -) 1 puff IH DAILY [facility] Last Admin: 07/21/17 09:21 Dose: 1 inh - Objective Vital Signs: Vital Signs Temperature 97.3 F L 07/21/17 06:00 Pulse Rate 76 07/21/17 06:00 Respiratory Rate 19 07/21/17 06:00 Blood Pressure 118/78 07/21/17 06:00 O2 Sat by Pulse Oximetry (%) 98 07/20/17 21:00 Constitutional: Yes: No Distress, Calm, Thin Neck: Yes: Supple Cardiovascular: Yes: Pulse Irregular Respiratory: Yes: Regular, Diminished, On Nasal O2 Gastrointestinal: Yes: Normal Bowel Sounds, Soft Edema: No Labs: CBC, BMP 07/21/17 06:20 07/21/17 06:20 - ....Imaging EKG: Report Reviewed (Tele: Rate-controlled afib occ V-pacing) Problem List - Problems (1) Acute on chronic respiratory failure with hypoxemia Code(s): J96.21 - ACUTE AND CHRONIC RESPIRATORY FAILURE WITH HYPOXIA (2) COPD with exacerbation Code(s): J44.1 - CHRONIC OBSTRUCTIVE PULMONARY DISEASE W (ACUTE) EXACERBATION (3) 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 Code(s): J92.0 - PLEURAL PLAQUE WITH PRESENCE OF ASBESTOS (4) Interstitial lung disease Code(s): J84.9 - INTERSTITIAL PULMONARY DISEASE, UNSPECIFIED (5) PNA (pneumonia) Code(s): J18.9 - PNEUMONIA, UNSPECIFIED ORGANISM Qualifiers: Pneumonia type: due to unspecified organism Laterality: bilateral Lung location: lower lobe of lung Qualified Code(s): J18.9 - Pneumonia, unspecified organism (6) Pulmonary asbestosis Code(s): J61 - PNEUMOCONIOSIS DUE TO ASBESTOS AND OTHER MINERAL FIBERS (7) Afib Code(s): I48.91 - UNSPECIFIED ATRIAL FIBRILLATION Qualifiers: Atrial fibrillation type: unspecified Qualified Code(s): I48.91 - Unspecified atrial fibrillation (8) Cerebrovascular disease Code(s): I67.9 - CEREBROVASCULAR DISEASE, UNSPECIFIED (9) Chronic anticoagulation Code(s): Z79.01 - PORTAL DEVELOPER (CURRENT) USE OF ANTICOAGULANTS (10) Diastolic dysfunction without heart failure Code(s): I51.9 - HEART DISEASE, UNSPECIFIED Assessment/Plan 06/13/2017 Echo: Borderline cLVH, normal LV size and fxn, mod-severe TR with severe pulm HTN, mod AR, mild MR 1. Atrial fibrillation with improved rate-control 2. Acute on chronic hypoxemic respiratory failure and hemoptysis 3. Underlying pulmonary fibrosis/ILD, asbestosis, pulmonary and pleural disease , pulmonary infiltrates suggests pneumonia and presence of pleural effusion 3. Post Medtronic ICD for ventricular arrhythmia at [facility] with monitoring functions suspended 4. HTN/HCVD 5. 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 Gout PLAN: 1. Continue antibiotic coverage per ID, IV steroid taper, bronchodilators and O2 as needed 2. Change Cardizem CD 120 qd with IV Cardizem as needed for rate-control 3. Continue Pradaxa 150 bid 4. Clarify when he is scheduled for generator change on his defibrillator (he has been scheduled with Dr. Osvaldo Gaston as outpatient)- will need this as his ICD has reached [facility] 5. D/c telemetry monitoring
--- NOTE | 2017-07-21 15:03 | PN ---
Progress Note, Physician History of Present Illness: PULMONARY ALERT,C/O COUGH, BLOOD TINGED SPUTUM,CONGESTION. - Current Medication List Current Medications: Active Medications Acetaminophen (Tylenol -) 650 mg PO Q6H PRN PRN Reason: PAIN Last Admin: 07/20/17 20:34 Dose: 650 mg Albuterol Sulfate (Ventolin 0.083% Nebulizer Soln -) 1 amp NEB Q4H PRN PRN Reason: SHORT OF BREATH/WHEEZING Albuterol/Ipratropium (Duoneb -) 1 amp NEB RQID [facility] Last Admin: 07/21/17 11:20 Dose: 1 amp Dabigatran (Pradaxa -) 150 mg PO BID [facility] Last Admin: 07/21/17 09:10 Dose: 150 mg Diltiazem HCl (Cardizem Injection -) 10 mg IVPUSH Q4H PRN PRN Reason: TACHYCARDIA Last Admin: 07/20/17 16:45 Dose: 10 mg Diltiazem HCl (Cardizem Cd -) 120 mg PO DAILY [facility] Last Admin: 07/21/17 12:34 Dose: 120 mg Vancomycin HCl 1,000 mg/ (Dextrose) 250 mls @ 166.667 mls/hr IVPB DAILY [facility] Last Admin: 07/21/17 09:10 Dose: 166.667 mls/hr Cefepime HCl (Maxipime 1 Gm Premix Ivpb) 1 gm in 50 mls @ 100 mls/hr IVPB Q8H- IV [facility] Last Admin: 07/21/17 09:10 Dose: 100 mls/hr Methylprednisolone Sodium Succinate (Solu-Medrol -) 40 mg IVPUSH Q6H-IV [facility] Last Admin: 07/21/17 14:53 Dose: 40 mg Multivitamins/Minerals (Theragran-M) 1 each PO DAILY [facility] Last Admin: 07/21/17 09:10 Dose: 1 each Fluticasone/Salmeterol (Advair 100mcg/50mcg -) 1 puff IH BID [facility] Last Admin: 07/21/17 09:20 Dose: 1 puff Tiotropium [place] (Spiriva -) 1 puff IH DAILY [facility] Last Admin: 07/21/17 09:21 Dose: 1 inh - Objective Vital Signs: Vital Signs Temperature 97.7 F 07/21/17 10:00 Pulse Rate 93 H 07/21/17 10:00 Respiratory Rate 20 07/21/17 10:00 Blood Pressure 117/54 07/21/17 10:00 O2 Sat by Pulse Oximetry (%) 97 07/21/17 09:00 Constitutional: Yes: Well Nourished, Calm Eyes: Yes: WNL HENT: Yes: WNL Neck: Yes: WNL Cardiovascular: Yes: Pulse Irregular, S1, S2 Respiratory: Yes: Rhonchi (SCATTERED RHONCHI) Gastrointestinal: Yes: Normal Bowel Sounds, Soft Extremities: Yes: WNL Edema: No Labs: CBC, BMP 07/21/17 06:20 07/21/17 06:20 Problem List - Problems (1) Acute on chronic respiratory failure with hypoxemia Code(s): J96.21 - ACUTE AND CHRONIC RESPIRATORY FAILURE WITH HYPOXIA (2) COPD with exacerbation Code(s): J44.1 - CHRONIC OBSTRUCTIVE PULMONARY DISEASE W (ACUTE) EXACERBATION (3) Interstitial lung disease Code(s): J84.9 - INTERSTITIAL PULMONARY DISEASE, UNSPECIFIED (4) PNA (pneumonia) Code(s): J18.9 - PNEUMONIA, UNSPECIFIED ORGANISM Qualifiers: Pneumonia type: due to unspecified organism Laterality: bilateral Lung location: lower lobe of lung Qualified Code(s): J18.9 - Pneumonia, unspecified organism (5) Sepsis Code(s): A41.9 - SEPSIS, UNSPECIFIED ORGANISM (6) Rapid atrial fibrillation Code(s): I48.91 - UNSPECIFIED ATRIAL FIBRILLATION (7) Hypotension Code(s): I95.9 - HYPOTENSION, UNSPECIFIED (8) 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 Assessment/Plan IMP ACUTE ON CHRONIC HYPOXEMIC RESPIRATORY FAILURE PNEUMONIA HEMOPTYSIS ADVANCE COPD O2 DEPENDENT ILD/PULMONARY FIBROSIS,LIKELY ASBESTOSIS ASBESTOS PLEURAL DISEASE HYPOTENSION RAPID AFIB LV DIASTOLIC DYSFUNCTION PLAN ANTIBIOTICS PER ID INHALED BRONCHODILATORS STEROIDS O2 RATE CONTROL PER CARDIOLOGY F/U CHEST X-RAYS STRICT I+OS DR ZAMORANO Problem List - Problems (1) Acute on chronic respiratory failure with hypoxemia Code(s): J96.21 - ACUTE AND CHRONIC RESPIRATORY FAILURE WITH HYPOXIA (2) COPD with exacerbation Code(s): J44.1 - CHRONIC OBSTRUCTIVE PULMONARY DISEASE W (ACUTE) EXACERBATION (3) Interstitial lung disease Code(s): J84.9 - INTERSTITIAL PULMONARY DISEASE, UNSPECIFIED (4) PNA (pneumonia) Code(s): J18.9 - PNEUMONIA, UNSPECIFIED ORGANISM Qualifiers: Pneumonia type: due to unspecified organism Laterality: bilateral Lung location: lower lobe of lung Qualified Code(s): J18.9 - Pneumonia, unspecified organism (5) Sepsis Code(s): A41.9 - SEPSIS, UNSPECIFIED ORGANISM (6) Rapid atrial fibrillation Code(s): I48.91 - UNSPECIFIED ATRIAL FIBRILLATION (7) Hypotension Code(s): I95.9 - HYPOTENSION, UNSPECIFIED (8) 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
--- NOTE | 2017-07-21 16:52 | PN ---
Progress Note (short form) - Note Progress Note: improved oob in chair unable to expectorate Vital Signs Period Temp Pulse Resp BP Sys/Starkey Pulse Ox Last 24 Hr 97.3 F-98.6 F 76-140 19-22 100-133/54-84 97-98 cor-rrr lungs crackles left base abd soft,nt ext no edema CBC, BMP 07/21/17 06:20 07/21/17 06:20 Microbiology 07/19/17 01:15 Blood - Peripheral Venous Blood Culture - Preliminary NO GROWTH OBTAINED AFTER 48 HOURS, INCUBATION TO CONTINUE FOR 3 DAYS. 07/19/17 01:15 Blood - Peripheral Venous Blood Culture - Preliminary NO GROWTH OBTAINED AFTER 48 HOURS, INCUBATION TO CONTINUE FOR 3 DAYS. 07/19/17 09:31 Sputum - Expectorated Gram Stain - Final 07/19/17 13:00 Urine For Antigen Detection Legionella Antigen - Final 07/19/17 13:00 Urine For Antigen Detection Streptococcus pneumoniae Antigen (M - Final 07/19/17 03:50 Nasopharyngeal Swab Influenza Types A,B Antigen (NAHED) - Final 07/19/17 03:50 Nasopharyngeal Swab - Final Current Medications Acetaminophen (Tylenol -) 650 mg PO Q6H PRN PRN Reason: PAIN Last Admin: 07/20/17 20:34 Dose: 650 mg Albuterol Sulfate (Ventolin 0.083% Nebulizer Soln -) 1 amp NEB Q4H PRN PRN Reason: SHORT OF BREATH/WHEEZING Albuterol/Ipratropium (Duoneb -) 1 amp NEB RQID [facility] Last Admin: 07/21/17 11:20 Dose: 1 amp Dabigatran (Pradaxa -) 150 mg PO BID [facility] Last Admin: 07/21/17 09:10 Dose: 150 mg Diltiazem HCl (Cardizem Injection -) 10 mg IVPUSH Q4H PRN PRN Reason: TACHYCARDIA Last Admin: 07/20/17 16:45 Dose: 10 mg Diltiazem HCl (Cardizem Cd -) 120 mg PO DAILY [facility] Last Admin: 07/21/17 12:34 Dose: 120 mg Vancomycin HCl 1,000 mg/ (Dextrose) 250 mls @ 166.667 mls/hr IVPB DAILY [facility] Last Admin: 07/21/17 09:10 Dose: 166.667 mls/hr Cefepime HCl (Maxipime 1 Gm Premix Ivpb) 1 gm in 50 mls @ 100 mls/hr IVPB Q8H- IV [facility] Last Admin: 07/21/17 09:10 Dose: 100 mls/hr Methylprednisolone Sodium Succinate (Solu-Medrol -) 40 mg IVPUSH Q6H-IV [facility] Last Admin: 07/21/17 14:53 Dose: 40 mg Multivitamins/Minerals (Theragran-M) 1 each PO DAILY [facility] Last Admin: 07/21/17 09:10 Dose: 1 each Fluticasone/Salmeterol (Advair 100mcg/50mcg -) 1 puff IH BID [facility] Last Admin: 07/21/17 09:20 Dose: 1 puff Tiotropium [place] (Spiriva -) 1 puff IH DAILY [facility] Last Admin: 07/21/17 09:21 Dose: 1 inh a/p HCAP-currently on vancomycin and cefepime doing well check vancomycin trough rapid afib-improved history ofpulm htn ppm/defib Problem List - Problems (1) PNA (pneumonia) Code(s): J18.9 - PNEUMONIA, UNSPECIFIED ORGANISM Qualifiers: Pneumonia type: due to unspecified organism Laterality: bilateral Lung location: lower lobe of lung Qualified Code(s): J18.9 - Pneumonia, unspecified organism (2) COPD with exacerbation Code(s): J44.1 - CHRONIC OBSTRUCTIVE PULMONARY DISEASE W (ACUTE) EXACERBATION (3) Afib Code(s): I48.91 - UNSPECIFIED ATRIAL FIBRILLATION Qualifiers: Atrial fibrillation type: unspecified Qualified Code(s): I48.91 - Unspecified atrial fibrillation (5) Interstitial lung disease Code(s): J84.9 - INTERSTITIAL PULMONARY DISEASE, UNSPECIFIED
[2017-07-22] MEDS: CEFEPIME HCL/D5W 1 GM/50 ML BAG IVPB SCH ×3 (02:51→17:28)
[2017-07-22] MEDS: methylPREDNISolone NA SUCC 40 MG/1 ML VIAL IVPUSH SCH ×4 (02:52→21:55)
[2017-07-22] MEDS: ALBUTEROL SO4 2.5/IPRATROPIUM 0.5 INH SOL 3 ML VIAL.NEB. NEB SCH ×4 (07:25→20:00)
[2017-07-22] MEDS: DABIGATRAN ETEXILATE MESYLATE 150 MG CAPSULE PO SCH ×2 (09:23→21:55)
[2017-07-22] MEDS: TIOTROPIUM BROMIDE 18 MCG/INH (DEVICE W/ 5 CAPSULES) IH SCH (09:23)
[2017-07-22] MEDS: MULTIVITAMINS THER W-MINERALS COMBO TABLET (FP) PO SCH (09:23)
[2017-07-22] MEDS: FLUTICASONE/SALMETEROL 100 MCG/50 MCG DISKUS IH SCH ×2 (09:23→21:55)
[2017-07-22] MEDS: VANCOMYCIN 1,000 MG in DEXTROSE 5%-WATER - 250 ML IVPB SCH ×2 (09:24→14:03)
--- NOTE | 2017-07-22 14:26 | PN ---
Progress Note (short form) - Note Progress Note: Congested cough and SOB about the same. Still with difficulty expectorating. No CP. No hemoptysis. Intake & Output 07/19/17 07/20/17 07/21/17 07/22/17 23:59 23:59 23:59 23:59 Intake Total 1184 1530 660 240 Output Total 700 100 150 Balance 484 1430 510 240 Weight 156 lb 156 lb 156 lb 9.6 oz 160 lb Last Vital Signs Temp Pulse Resp BP Pulse Ox 97.8 F 113 H 20 121/55 97 07/22/17 08:37 07/22/17 08:37 07/22/17 08:37 07/22/17 08:37 07/22/17 08:36 Active Medications Acetaminophen (Tylenol -) 650 mg PO Q6H PRN PRN Reason: PAIN Last Admin: 07/20/17 20:34 Dose: 650 mg Albuterol Sulfate (Ventolin 0.083% Nebulizer Soln -) 1 amp NEB Q4H PRN PRN Reason: SHORT OF BREATH/WHEEZING Albuterol/Ipratropium (Duoneb -) 1 amp NEB RQID [facility] Last Admin: 07/22/17 11:20 Dose: 1 amp Dabigatran (Pradaxa -) 150 mg PO BID [facility] Last Admin: 07/22/17 09:23 Dose: 150 mg Diltiazem HCl (Cardizem Injection -) 10 mg IVPUSH Q4H PRN PRN Reason: TACHYCARDIA Last Admin: 07/20/17 16:45 Dose: 10 mg Diltiazem HCl (Cardizem Cd -) 120 mg PO DAILY [facility] Last Admin: 07/22/17 09:23 Dose: 120 mg Vancomycin HCl 1,000 mg/ (Dextrose) 250 mls @ 166.667 mls/hr IVPB DAILY [facility] Last Admin: 07/22/17 14:03 Dose: 166.667 mls/hr Cefepime HCl (Maxipime 1 Gm Premix Ivpb) 1 gm in 50 mls @ 100 mls/hr IVPB Q8H- IV [facility] Last Admin: 07/22/17 09:23 Dose: 100 mls/hr Methylprednisolone Sodium Succinate (Solu-Medrol -) 40 mg IVPUSH Q6H-IV [facility] Last Admin: 07/22/17 09:23 Dose: 40 mg Multivitamins/Minerals (Theragran-M) 1 each PO DAILY [facility] Last Admin: 07/22/17 09:23 Dose: 1 each Fluticasone/Salmeterol (Advair 100mcg/50mcg -) 1 puff IH BID [facility] Last Admin: 07/22/17 09:23 Dose: 1 puff Tiotropium [place] (Spiriva -) 1 puff IH DAILY [facility] Last Admin: 07/22/17 09:23 Dose: 1 puff Eyes: Yes: PERRL Neck: Yes: Supple Cardiovascular: Yes: Pulse Irregular, S1, S2 Respiratory: Yes: Bilateral rhonchi / wheeze Gastrointestinal: Yes: Normal Bowel Sounds, Soft. No: Tenderness Edema: No Laboratory Results - last 24 hr 07/22/17 08:35 Vancomycin Pre-Dose 7.865 Problem List - Problems (1) Acute on chronic respiratory failure with hypoxemia Code(s): J96.21 - ACUTE AND CHRONIC RESPIRATORY FAILURE WITH HYPOXIA (2) COPD with exacerbation Code(s): J44.1 - CHRONIC OBSTRUCTIVE PULMONARY DISEASE W (ACUTE) EXACERBATION (3) Interstitial lung disease Code(s): J84.9 - INTERSTITIAL PULMONARY DISEASE, UNSPECIFIED (4) PNA (pneumonia) Code(s): J18.9 - PNEUMONIA, UNSPECIFIED ORGANISM Qualifiers: Pneumonia type: due to unspecified organism Laterality: bilateral Lung location: lower lobe of lung Qualified Code(s): J18.9 - Pneumonia, unspecified organism (5) Sepsis Code(s): A41.9 - SEPSIS, UNSPECIFIED ORGANISM (6) Rapid atrial fibrillation Code(s): I48.91 - UNSPECIFIED ATRIAL FIBRILLATION (7) Hypotension Code(s): I95.9 - HYPOTENSION, UNSPECIFIED (8) 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
--- NOTE | 2017-07-22 16:27 | PN ---
Progress Note, Physician History of Present Illness: Dyspnea, hemoptysis resolving, remains rate-controlled afib. - Current Medication List Current Medications: Active Medications Acetaminophen (Tylenol -) 650 mg PO Q6H PRN PRN Reason: PAIN Last Admin: 07/20/17 20:34 Dose: 650 mg Albuterol Sulfate (Ventolin 0.083% Nebulizer Soln -) 1 amp NEB Q4H PRN PRN Reason: SHORT OF BREATH/WHEEZING Albuterol/Ipratropium (Duoneb -) 1 amp NEB RQID [facility] Last Admin: 07/22/17 11:20 Dose: 1 amp Dabigatran (Pradaxa -) 150 mg PO BID [facility] Last Admin: 07/22/17 09:23 Dose: 150 mg Diltiazem HCl (Cardizem Injection -) 10 mg IVPUSH Q4H PRN PRN Reason: TACHYCARDIA Last Admin: 07/20/17 16:45 Dose: 10 mg Diltiazem HCl (Cardizem Cd -) 120 mg PO DAILY [facility] Last Admin: 07/22/17 09:23 Dose: 120 mg Vancomycin HCl 1,000 mg/ (Dextrose) 250 mls @ 166.667 mls/hr IVPB DAILY [facility] Last Admin: 07/22/17 14:03 Dose: 166.667 mls/hr Cefepime HCl (Maxipime 1 Gm Premix Ivpb) 1 gm in 50 mls @ 100 mls/hr IVPB Q8H- IV [facility] Last Admin: 07/22/17 09:23 Dose: 100 mls/hr Methylprednisolone Sodium Succinate (Solu-Medrol -) 40 mg IVPUSH Q6H-IV [facility] Last Admin: 07/22/17 14:59 Dose: 40 mg Multivitamins/Minerals (Theragran-M) 1 each PO DAILY [facility] Last Admin: 07/22/17 09:23 Dose: 1 each Fluticasone/Salmeterol (Advair 100mcg/50mcg -) 1 puff IH BID [facility] Last Admin: 07/22/17 09:23 Dose: 1 puff Tiotropium [place] (Spiriva -) 1 puff IH DAILY [facility] Last Admin: 07/22/17 09:23 Dose: 1 puff - Objective Vital Signs: Vital Signs Temperature 98 F 07/22/17 14:15 Pulse Rate 93 H 07/22/17 14:15 Respiratory Rate 20 07/22/17 14:15 Blood Pressure 118/65 07/22/17 14:15 O2 Sat by Pulse Oximetry (%) 97 07/22/17 08:36 Constitutional: Yes: No Distress, Calm, Thin Neck: Yes: Supple Cardiovascular: Yes: Pulse Irregular Respiratory: Yes: Regular, Diminished, On Nasal O2 Gastrointestinal: Yes: Normal Bowel Sounds, Soft Edema: No Labs: CBC, BMP 07/21/17 06:20 07/21/17 06:20 - ....Imaging EKG: Report Reviewed (Tele: Afib occ v-paced) Problem List - Problems (1) Acute on chronic respiratory failure with hypoxemia Code(s): J96.21 - ACUTE AND CHRONIC RESPIRATORY FAILURE WITH HYPOXIA (2) COPD with exacerbation Code(s): J44.1 - CHRONIC OBSTRUCTIVE PULMONARY DISEASE W (ACUTE) EXACERBATION (3) 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 Code(s): J92.0 - PLEURAL PLAQUE WITH PRESENCE OF ASBESTOS (4) Interstitial lung disease Code(s): J84.9 - INTERSTITIAL PULMONARY DISEASE, UNSPECIFIED (5) PNA (pneumonia) Code(s): J18.9 - PNEUMONIA, UNSPECIFIED ORGANISM Qualifiers: Pneumonia type: due to unspecified organism Laterality: bilateral Lung location: lower lobe of lung Qualified Code(s): J18.9 - Pneumonia, unspecified organism (6) Pulmonary asbestosis Code(s): J61 - PNEUMOCONIOSIS DUE TO ASBESTOS AND OTHER MINERAL FIBERS (7) Afib Code(s): I48.91 - UNSPECIFIED ATRIAL FIBRILLATION Qualifiers: Atrial fibrillation type: unspecified Qualified Code(s): I48.91 - Unspecified atrial fibrillation (8) Cerebrovascular disease Code(s): I67.9 - CEREBROVASCULAR DISEASE, UNSPECIFIED (9) Chronic anticoagulation Code(s): Z79.01 - CORRECTION (CURRENT) USE OF ANTICOAGULANTS (10) Diastolic dysfunction without heart failure Code(s): I51.9 - HEART DISEASE, UNSPECIFIED Assessment/Plan 06/13/2017 Echo: Borderline cLVH, normal LV size and fxn, mod-severe TR with severe pulm HTN, mod AR, mild MR 1. Atrial fibrillation with improved rate-control 2. Acute on chronic hypoxemic respiratory failure and hemoptysis referable to 3. Underlying pulmonary fibrosis/ILD, asbestosis, pulmonary and pleural disease , pulmonary infiltrates suggests pneumonia and presence of pleural effusion, improving 3. Post [employer] ICD for ventricular arrhythmia at [facility] with monitoring functions suspended 4. HTN/HCVD 5. 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 Gout PLAN: 1. Continue antibiotic coverage per ID, IV steroid taper, bronchodilators and O2 as needed 2. Change Cardizem CD 120 qd with IV Cardizem as needed for rate-control 3. Continue Pradaxa 150 bid 4. Clarify when he is scheduled for generator change on his defibrillator (he has been scheduled with Dr. Osvaldo Gaston as outpatient)- will need this as his ICD has reached [facility] 5. D/c telemetry monitoring
[2017-07-23] MEDS ORDERED: PT OWN MED DRAWER 7, Y5N ONE ×5 (00:29→20:53)
--- NOTE | 2017-07-23 00:42 | PN ---
Progress Note, Physician Chief Complaint: Pneumonia, COPD exacerbation - Current Medication List Current Medications: Active Medications Acetaminophen (Tylenol -) 650 mg PO Q6H PRN PRN Reason: PAIN Last Admin: 07/20/17 20:34 Dose: 650 mg Albuterol Sulfate (Ventolin 0.083% Nebulizer Soln -) 1 amp NEB Q4H PRN PRN Reason: SHORT OF BREATH/WHEEZING Albuterol/Ipratropium (Duoneb -) 1 amp NEB RQID [facility] Last Admin: 07/22/17 20:00 Dose: 1 amp Dabigatran (Pradaxa -) 150 mg PO BID [facility] Last Admin: 07/22/17 21:55 Dose: 150 mg Diltiazem HCl (Cardizem Injection -) 10 mg IVPUSH Q4H PRN PRN Reason: TACHYCARDIA Last Admin: 07/20/17 16:45 Dose: 10 mg Diltiazem HCl (Cardizem Cd -) 120 mg PO DAILY [facility] Last Admin: 07/22/17 09:23 Dose: 120 mg Vancomycin HCl 1,000 mg/ (Dextrose) 250 mls @ 166.667 mls/hr IVPB DAILY [facility] Last Admin: 07/22/17 14:03 Dose: 166.667 mls/hr Cefepime HCl (Maxipime 1 Gm Premix Ivpb) 1 gm in 50 mls @ 100 mls/hr IVPB Q8H- IV [facility] Last Admin: 07/22/17 17:28 Dose: 100 mls/hr Methylprednisolone Sodium Succinate (Solu-Medrol -) 40 mg IVPUSH Q6H-IV [facility] Last Admin: 07/22/17 21:55 Dose: 40 mg Multivitamins/Minerals (Theragran-M) 1 each PO DAILY [facility] Last Admin: 07/22/17 09:23 Dose: 1 each Fluticasone/Salmeterol (Advair 100mcg/50mcg -) 1 puff IH BID [facility] Last Admin: 07/22/17 21:55 Dose: 1 puff Tiotropium [place] (Spiriva -) 1 puff IH DAILY [facility] Last Admin: 07/22/17 09:23 Dose: 1 puff - Objective Vital Signs: Vital Signs Temperature 98.6 F 07/22/17 21:00 Pulse Rate 95 H 07/22/17 21:00 Respiratory Rate 20 07/22/17 21:00 Blood Pressure 132/72 07/22/17 21:00 O2 Sat by Pulse Oximetry (%) 97 07/22/17 21:00 Constitutional: Yes: Well Nourished, No Distress, Calm Cardiovascular: Yes: Pulse Irregular Respiratory: Yes: Regular, Wheezes (diffuse) Neurological: Yes: Alert Psychiatric: Yes: Alert Labs: CBC, BMP 07/21/17 06:20 07/21/17 06:20 Problem List - Problems (1) Paroxysmal atrial fibrillation Assessment/Plan: -seen by cardiology -on ac -controlled Code(s): I48.0 - PAROXYSMAL ATRIAL FIBRILLATION (2) COPD with exacerbation Assessment/Plan: -seen by pulmonary and ID -IV abx -IV steroids -Nasal o2 -bronchodilators Code(s): J44.1 - CHRONIC OBSTRUCTIVE PULMONARY DISEASE W (ACUTE) EXACERBATION (3) PNA (pneumonia) Assessment/Plan: -seen by pulmonary and ID -IV abx -IV steroids -Nasal o2 -bronchodilators Code(s): J18.9 - PNEUMONIA, UNSPECIFIED ORGANISM Qualifiers: Pneumonia type: due to unspecified organism Laterality: bilateral Lung location: lower lobe of lung Qualified Code(s): J18.9 - Pneumonia, unspecified organism Assessment/Plan see problem list
[2017-07-23] MEDS: methylPREDNISolone NA SUCC 40 MG/1 ML VIAL IVPUSH SCH ×3 (02:08→14:50)
[2017-07-23] MEDS: CEFEPIME HCL/D5W 1 GM/50 ML BAG IVPB SCH ×3 (02:08→18:52)
[2017-07-23] MEDS: ALBUTEROL SO4 2.5/IPRATROPIUM 0.5 INH SOL 3 ML VIAL.NEB. NEB SCH ×3 (08:47→20:56)
[2017-07-23] MEDS: TIOTROPIUM BROMIDE 18 MCG/INH (DEVICE W/ 5 CAPSULES) IH SCH (09:04)
[2017-07-23] MEDS: DABIGATRAN ETEXILATE MESYLATE 150 MG CAPSULE PO SCH ×2 (09:04→21:10)
[2017-07-23] MEDS: MULTIVITAMINS THER W-MINERALS COMBO TABLET (FP) PO SCH (09:04)
[2017-07-23] MEDS: VANCOMYCIN 1,000 MG in DEXTROSE 5%-WATER - 250 ML IVPB SCH (09:04)
[2017-07-23] MEDS: FLUTICASONE/SALMETEROL 100 MCG/50 MCG DISKUS IH SCH ×2 (09:04→21:11)
--- NOTE | 2017-07-23 11:50 | PN ---
Progress Note, Physician History of Present Illness: Dyspnea, hemoptysis resolving, remains rate-controlled afib. - Current Medication List Current Medications: Active Medications Acetaminophen (Tylenol -) 650 mg PO Q6H PRN PRN Reason: PAIN Last Admin: 07/20/17 20:34 Dose: 650 mg Albuterol Sulfate (Ventolin 0.083% Nebulizer Soln -) 1 amp NEB Q4H PRN PRN Reason: SHORT OF BREATH/WHEEZING Albuterol/Ipratropium (Duoneb -) 1 amp NEB RQID [facility] Last Admin: 07/23/17 08:47 Dose: 1 amp Dabigatran (Pradaxa -) 150 mg PO BID [facility] Last Admin: 07/23/17 09:04 Dose: 150 mg Diltiazem HCl (Cardizem Injection -) 10 mg IVPUSH Q4H PRN PRN Reason: TACHYCARDIA Last Admin: 07/20/17 16:45 Dose: 10 mg Diltiazem HCl (Cardizem Cd -) 120 mg PO DAILY [facility] Last Admin: 07/23/17 09:04 Dose: 120 mg Vancomycin HCl 1,000 mg/ (Dextrose) 250 mls @ 166.667 mls/hr IVPB DAILY [facility] Last Admin: 07/23/17 09:04 Dose: 166.667 mls/hr Cefepime HCl (Maxipime 1 Gm Premix Ivpb) 1 gm in 50 mls @ 100 mls/hr IVPB Q8H- IV [facility] Last Admin: 07/23/17 09:04 Dose: 100 mls/hr Methylprednisolone Sodium Succinate (Solu-Medrol -) 40 mg IVPUSH Q6H-IV [facility] Last Admin: 07/23/17 09:04 Dose: 40 mg Multivitamins/Minerals (Theragran-M) 1 each PO DAILY [facility] Last Admin: 07/23/17 09:04 Dose: 1 each Fluticasone/Salmeterol (Advair 100mcg/50mcg -) 1 puff IH BID [facility] Last Admin: 07/23/17 09:04 Dose: 1 puff Tiotropium [place] (Spiriva -) 1 puff IH DAILY [facility] Last Admin: 07/23/17 09:04 Dose: 1 puff - Objective Vital Signs: Vital Signs Temperature 98.1 F 07/23/17 05:00 Pulse Rate 91 H 07/23/17 05:00 Respiratory Rate 20 07/23/17 05:00 Blood Pressure 135/65 07/23/17 05:00 O2 Sat by Pulse Oximetry (%) 97 07/22/17 21:00 Constitutional: Yes: No Distress, Calm, Thin Neck: Yes: Supple Cardiovascular: Yes: Pulse Irregular Respiratory: Yes: Regular, Diminished, On Nasal O2 Gastrointestinal: Yes: Normal Bowel Sounds, Soft Edema: No Labs: CBC, BMP 07/21/17 06:20 07/21/17 06:20 - ....Imaging EKG: Report Reviewed (Tele: Rate-controlled afib) Problem List - Problems (1) Acute on chronic respiratory failure with hypoxemia Code(s): J96.21 - ACUTE AND CHRONIC RESPIRATORY FAILURE WITH HYPOXIA (2) COPD with exacerbation Code(s): J44.1 - CHRONIC OBSTRUCTIVE PULMONARY DISEASE W (ACUTE) EXACERBATION (3) 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 Code(s): J92.0 - PLEURAL PLAQUE WITH PRESENCE OF ASBESTOS (4) Interstitial lung disease Code(s): J84.9 - INTERSTITIAL PULMONARY DISEASE, UNSPECIFIED (5) PNA (pneumonia) Code(s): J18.9 - PNEUMONIA, UNSPECIFIED ORGANISM Qualifiers: Pneumonia type: due to unspecified organism Laterality: bilateral Lung location: lower lobe of lung Qualified Code(s): J18.9 - Pneumonia, unspecified organism (6) Pulmonary asbestosis Code(s): J61 - PNEUMOCONIOSIS DUE TO ASBESTOS AND OTHER MINERAL FIBERS (7) Afib Code(s): I48.91 - UNSPECIFIED ATRIAL FIBRILLATION Qualifiers: Atrial fibrillation type: unspecified Qualified Code(s): I48.91 - Unspecified atrial fibrillation (8) Cerebrovascular disease Code(s): I67.9 - CEREBROVASCULAR DISEASE, UNSPECIFIED (9) Chronic anticoagulation Code(s): Z79.01 - FUNCTIONAL SUPPORT ANALYST (CURRENT) USE OF ANTICOAGULANTS (10) Diastolic dysfunction without heart failure Code(s): I51.9 - HEART DISEASE, UNSPECIFIED Assessment/Plan 06/13/2017 Echo: Borderline cLVH, normal LV size and fxn, mod-severe TR with severe pulm HTN, mod AR, mild MR 1. Atrial fibrillation with improved rate-control 2. Acute on chronic hypoxemic respiratory failure and hemoptysis referable to 3. Underlying pulmonary fibrosis/ILD, asbestosis, pulmonary and pleural disease , pulmonary infiltrates suggests pneumonia and presence of pleural effusion, improving 3. Post Medtronic ICD for ventricular arrhythmia at [facility] with monitoring functions suspended 4. HTN/HCVD 5. 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 Gout PLAN: 1. Continue IV antibiotic coverage per ID, IV steroid taper with GI protection, bronchodilators and O2 as needed 2. Change Cardizem CD 120 qd with IV Cardizem as needed for rate-control 3. Continue Pradaxa 150 bid 4. Clarify when he is scheduled for generator change on his defibrillator (he has been scheduled with Dr. Osvaldo Gaston as outpatient)- will need this as his ICD has reached [facility] 5. D/c telemetry monitoring
--- NOTE | 2017-07-23 14:19 | PN ---
Progress Note (short form) - Note Progress Note: Congested cough and SOB better today. No CP. No hemoptysis. Intake & Output 07/20/17 07/21/17 07/22/17 07/23/17 23:59 23:59 23:59 23:59 Intake Total 6648 422 9337 62 Output Total 100 150 750 Balance 1430 510 430 62 Weight 156 lb 156 lb 9.6 oz 160 lb Last Vital Signs Temp Pulse Resp BP Pulse Ox 98.1 F 91 H 20 135/65 97 07/23/17 05:00 07/23/17 05:00 07/23/17 05:00 07/23/17 05:00 07/22/17 21:00 Active Medications Acetaminophen (Tylenol -) 650 mg PO Q6H PRN PRN Reason: PAIN Last Admin: 07/20/17 20:34 Dose: 650 mg Albuterol Sulfate (Ventolin 0.083% Nebulizer Soln -) 1 amp NEB Q4H PRN PRN Reason: SHORT OF BREATH/WHEEZING Albuterol/Ipratropium (Duoneb -) 1 amp NEB RQID [facility] Last Admin: 07/23/17 08:47 Dose: 1 amp Dabigatran (Pradaxa -) 150 mg PO BID [facility] Last Admin: 07/23/17 09:04 Dose: 150 mg Diltiazem HCl (Cardizem Injection -) 10 mg IVPUSH Q4H PRN PRN Reason: TACHYCARDIA Last Admin: 07/20/17 16:45 Dose: 10 mg Diltiazem HCl (Cardizem Cd -) 120 mg PO DAILY [facility] Last Admin: 07/23/17 09:04 Dose: 120 mg Vancomycin HCl 1,000 mg/ (Dextrose) 250 mls @ 166.667 mls/hr IVPB DAILY [facility] Last Admin: 07/23/17 09:04 Dose: 166.667 mls/hr Cefepime HCl (Maxipime 1 Gm Premix Ivpb) 1 gm in 50 mls @ 100 mls/hr IVPB Q8H- IV [facility] Last Admin: 07/23/17 09:04 Dose: 100 mls/hr Methylprednisolone Sodium Succinate (Solu-Medrol -) 40 mg IVPUSH Q6H-IV [facility] Last Admin: 07/23/17 09:04 Dose: 40 mg Multivitamins/Minerals (Theragran-M) 1 each PO DAILY [facility] Last Admin: 07/23/17 09:04 Dose: 1 each Pantoprazole Sodium (Protonix -) 20 mg PO DAILY [facility] Fluticasone/Salmeterol (Advair 100mcg/50mcg -) 1 puff IH BID [facility] Last Admin: 07/23/17 09:04 Dose: 1 puff Tiotropium [place] (Spiriva -) 1 puff IH DAILY [facility] Last Admin: 07/23/17 09:04 Dose: 1 puff Eyes: Yes: PERRL Neck: Yes: Supple Cardiovascular: Yes: Pulse Irregular, S1, S2 Respiratory: Yes: Bilateral rhonchi / wheeze Gastrointestinal: Yes: Normal Bowel Sounds, Soft. No: Tenderness Edema: No Problem List - Problems (1) Acute on chronic respiratory failure with hypoxemia Code(s): J96.21 - ACUTE AND CHRONIC RESPIRATORY FAILURE WITH HYPOXIA (2) COPD with exacerbation Code(s): J44.1 - CHRONIC OBSTRUCTIVE PULMONARY DISEASE W (ACUTE) EXACERBATION (3) Interstitial lung disease Code(s): J84.9 - INTERSTITIAL PULMONARY DISEASE, UNSPECIFIED (4) PNA (pneumonia) Code(s): J18.9 - PNEUMONIA, UNSPECIFIED ORGANISM Qualifiers: Pneumonia type: due to unspecified organism Laterality: bilateral Lung location: lower lobe of lung Qualified Code(s): J18.9 - Pneumonia, unspecified organism (5) Sepsis Code(s): A41.9 - SEPSIS, UNSPECIFIED ORGANISM (6) Rapid atrial fibrillation Code(s): I48.91 - UNSPECIFIED ATRIAL FIBRILLATION (7) Hypotension Code(s): I95.9 - HYPOTENSION, UNSPECIFIED (8) 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
--- NOTE | 2017-07-23 14:32 | PN ---
Progress Note (short form) - Note Progress Note: improved much more comfortable productive cough Vital Signs Period Temp Pulse Resp BP Sys/Starkey Pulse Ox Last 24 Hr 97.3 F-98.6 F 88-95 20-20 123-135/65-79 97 cor-rrr lungs crackles right base abd soft,nt ext no edema CBC, BMP 07/21/17 06:20 07/21/17 06:20 Microbiology 07/19/17 01:15 Blood - Peripheral Venous Blood Culture - Preliminary NO GROWTH OBTAINED AFTER 96 HOURS, INCUBATION TO CONTINUE FOR 1 DAYS. 07/19/17 01:15 Blood - Peripheral Venous Blood Culture - Preliminary NO GROWTH OBTAINED AFTER 96 HOURS, INCUBATION TO CONTINUE FOR 1 DAYS. 07/19/17 09:31 Sputum - Expectorated Gram Stain - Final 07/19/17 13:00 Urine For Antigen Detection Legionella Antigen - Final 07/19/17 13:00 Urine For Antigen Detection Streptococcus pneumoniae Antigen (M - Final 07/19/17 03:50 Nasopharyngeal Swab Influenza Types A,B Antigen (NAHED) - Final 07/19/17 03:50 Nasopharyngeal Swab - Final a/p HCAP-currently on vancomycin and cefepime doing well d/c vancomycin continue cefepime day #4 rapid afib-improved history of pulm htn/ILD ppm/defib Problem List - Problems (1) PNA (pneumonia) Code(s): J18.9 - PNEUMONIA, UNSPECIFIED ORGANISM Qualifiers: Pneumonia type: due to unspecified organism Laterality: bilateral Lung location: lower lobe of lung Qualified Code(s): J18.9 - Pneumonia, unspecified organism (2) COPD with exacerbation Code(s): J44.1 - CHRONIC OBSTRUCTIVE PULMONARY DISEASE W (ACUTE) EXACERBATION (3) Afib Code(s): I48.91 - UNSPECIFIED ATRIAL FIBRILLATION Qualifiers: Atrial fibrillation type: unspecified Qualified Code(s): I48.91 - Unspecified atrial fibrillation (5) Interstitial lung disease Code(s): J84.9 - INTERSTITIAL PULMONARY DISEASE, UNSPECIFIED
[2017-07-23] MEDS: PANTOPRAZOLE 20 MG TABLET (FP) PO SCH (14:50)
--- NOTE | 2017-07-23 19:45 | PN ---
Progress Note, Physician Chief Complaint: Pneumonia, COPD exacerbation History of Present Illness: NAD, in bed SOB improved on nasal o2 tele discontinued seen by pulmonary and ID - Current Medication List Current Medications: Active Medications Acetaminophen (Tylenol -) 650 mg PO Q6H PRN PRN Reason: PAIN Last Admin: 07/20/17 20:34 Dose: 650 mg Albuterol Sulfate (Ventolin 0.083% Nebulizer Soln -) 1 amp NEB Q4H PRN PRN Reason: SHORT OF BREATH/WHEEZING Albuterol/Ipratropium (Duoneb -) 1 amp NEB RQID [facility] Last Admin: 07/23/17 16:00 Dose: 1 amp Dabigatran (Pradaxa -) 150 mg PO BID [facility] Last Admin: 07/23/17 09:04 Dose: 150 mg Diltiazem HCl (Cardizem Injection -) 10 mg IVPUSH Q4H PRN PRN Reason: TACHYCARDIA Last Admin: 07/20/17 16:45 Dose: 10 mg Diltiazem HCl (Cardizem Cd -) 120 mg PO DAILY [facility] Last Admin: 07/23/17 09:04 Dose: 120 mg Cefepime HCl (Maxipime 1 Gm Premix Ivpb) 1 gm in 50 mls @ 100 mls/hr IVPB Q8H- IV [facility] Last Admin: 07/23/17 18:52 Dose: 100 mls/hr Methylprednisolone Sodium Succinate (Solu-Medrol -) 40 mg IVPUSH Q12H [facility] Last Admin: 07/23/17 14:50 Dose: 40 mg Multivitamins/Minerals (Theragran-M) 1 each PO DAILY [facility] Last Admin: 07/23/17 09:04 Dose: 1 each Pantoprazole Sodium (Protonix -) 20 mg PO DAILY [facility] Last Admin: 07/23/17 14:50 Dose: 20 mg Fluticasone/Salmeterol (Advair 100mcg/50mcg -) 1 puff IH BID [facility] Last Admin: 07/23/17 09:04 Dose: 1 puff Tiotropium [place] (Spiriva -) 1 puff IH DAILY [facility] Last Admin: 07/23/17 09:04 Dose: 1 puff - Objective Vital Signs: Vital Signs Temperature 97.6 F 07/23/17 17:00 Pulse Rate 87 07/23/17 17:00 Respiratory Rate 20 07/23/17 17:00 Blood Pressure 124/84 07/23/17 17:00 O2 Sat by Pulse Oximetry (%) 95 07/23/17 10:00 Constitutional: Yes: Well Nourished, No Distress, Calm Cardiovascular: Yes: Regular Rate and Rhythm Respiratory: Yes: Regular, Rhonchi (diffuse) Gastrointestinal: Yes: Normal Bowel Sounds, Soft Musculoskeletal: Yes: WNL Extremities: Yes: WNL Edema: No Peripheral Pulses WNL: Yes Neurological: Yes: Alert, Oriented Psychiatric: Yes: Alert, Oriented Labs: CBC, BMP 07/21/17 06:20 07/21/17 06:20 Problem List - Problems (1) Paroxysmal atrial fibrillation Assessment/Plan: -seen by cardiology -on ac -controlled -d/c tele Code(s): I48.0 - PAROXYSMAL ATRIAL FIBRILLATION (2) COPD with exacerbation Assessment/Plan: -seen by pulmonary and ID -IV abx -IV steroids -Nasal o2 -bronchodilators Code(s): J44.1 - CHRONIC OBSTRUCTIVE PULMONARY DISEASE W (ACUTE) EXACERBATION (3) PNA (pneumonia) Assessment/Plan: -seen by pulmonary and ID -IV abx -IV steroids -Nasal o2 -bronchodilators Code(s): J18.9 - PNEUMONIA, UNSPECIFIED ORGANISM Qualifiers: Pneumonia type: due to unspecified organism Laterality: bilateral Lung location: lower lobe of lung Qualified Code(s): J18.9 - Pneumonia, unspecified organism Assessment/Plan see problem list Physical therapy ordered labs in AM
[2017-07-24] MEDS: methylPREDNISolone NA SUCC 40 MG/1 ML VIAL IVPUSH SCH (01:52)
[2017-07-24] MEDS: CEFEPIME HCL/D5W 1 GM/50 ML BAG IVPB SCH ×3 (01:52→18:03)
[2017-07-24 07:11] LABS: BASO % 0.1 % (0-2.0); HEMATOCRIT 35.5 % (35.4-49); HEMOGLOBIN 11.6 GM/dL (11.7-16.9); LYMPH % 3.6 % (8-40); MCH 31.6 pg (25.7-33.7); MCHC 32.8 g/dl (32.0-35.9); MEAN CELL VOLUME 96.3 fl (80-96); MEAN PLT VOLUME 7.8 fl (7.5-11.1); MONO % 4.9 % (3.8-10.2); NEUT % 91.4 % (42.8-82.8); PLATELET COUNT 197 K/MM3 (134-434); RBC 3.69 M/mm3 (4.00-5.60); RDW 14.4 % (11.9-15.9); WHITE BLOOD COUNT 8.9 K/mm3 (4.0-10.0)
[2017-07-24] MEDS: ALBUTEROL SO4 2.5/IPRATROPIUM 0.5 INH SOL 3 ML VIAL.NEB. NEB SCH ×4 (07:45→20:43)
[2017-07-24 07:46] LABS: CHLORIDE 105 mmol/L (98-107); POTASSIUM 3.7 mmol/L (3.5-5.1); SODIUM 139 mmol/L (136-145)
[2017-07-24 07:54] LABS: ALBUMIN 2.6 g/dl (3.4-5.0); ALK PHOS 64 U/L (45-117); ANION GAP 8 (8-16); BILIRUBIN,TOTAL 0.6 mg/dL (0.2-1.0); BLOOD UREA NITROGEN 23 mg/dL (7-18); CALCIUM 7.6 mg/dL (8.5-10.1); CO2 26 mmol/L (21-32); CREATININE 0.7 mg/dL (0.7-1.3); GLUCOSE,RANDOM 143 mg/dL (74-106); SGOT/AST 17 U/L (15-37); SGPT/ALT 48 U/L (12-78)
--- NOTE | 2017-07-24 09:07 | PN ---
Progress Note, Physician - Current Medication List Current Medications: Active Medications Acetaminophen (Tylenol -) 650 mg PO Q6H PRN PRN Reason: PAIN Last Admin: 07/20/17 20:34 Dose: 650 mg Albuterol Sulfate (Ventolin 0.083% Nebulizer Soln -) 1 amp NEB Q4H PRN PRN Reason: SHORT OF BREATH/WHEEZING Albuterol/Ipratropium (Duoneb -) 1 amp NEB RQID [facility] Last Admin: 07/23/17 20:56 Dose: 1 amp Dabigatran (Pradaxa -) 150 mg PO BID [facility] Last Admin: 07/23/17 21:10 Dose: 150 mg Diltiazem HCl (Cardizem Injection -) 10 mg IVPUSH Q4H PRN PRN Reason: TACHYCARDIA Last Admin: 07/20/17 16:45 Dose: 10 mg Diltiazem HCl (Cardizem Cd -) 120 mg PO DAILY [facility] Last Admin: 07/23/17 09:04 Dose: 120 mg Cefepime HCl (Maxipime 1 Gm Premix Ivpb) 1 gm in 50 mls @ 100 mls/hr IVPB Q8H- IV [facility] Last Admin: 07/24/17 01:52 Dose: 100 mls/hr Methylprednisolone Sodium Succinate (Solu-Medrol -) 40 mg IVPUSH Q12H [facility] Last Admin: 07/24/17 01:52 Dose: 40 mg Multivitamins/Minerals (Theragran-M) 1 each PO DAILY [facility] Last Admin: 07/23/17 09:04 Dose: 1 each Pantoprazole Sodium (Protonix -) 20 mg PO DAILY [facility] Last Admin: 07/23/17 14:50 Dose: 20 mg Fluticasone/Salmeterol (Advair 100mcg/50mcg -) 1 puff IH BID [facility] Last Admin: 07/23/17 21:11 Dose: 1 puff Tiotropium [place] (Spiriva -) 1 puff IH DAILY [facility] Last Admin: 07/23/17 09:04 Dose: 1 puff - Objective Vital Signs: Vital Signs Temperature 97.8 F 07/24/17 05:00 Pulse Rate 94 H 07/24/17 05:00 Respiratory Rate 20 07/24/17 05:00 Blood Pressure 122/76 07/24/17 05:00 O2 Sat by Pulse Oximetry (%) 96 01/21/18 20:03 Labs: CBC, BMP 07/24/17 05:15 07/24/17 06:15 Problem List - Problems (1) Sepsis Code(s): A41.9 - SEPSIS, UNSPECIFIED ORGANISM (2) COPD with exacerbation Code(s): J44.1 - CHRONIC OBSTRUCTIVE PULMONARY DISEASE W (ACUTE) EXACERBATION (3) PNA (pneumonia) Code(s): J18.9 - PNEUMONIA, UNSPECIFIED ORGANISM Qualifiers: Pneumonia type: due to unspecified organism Laterality: bilateral Lung location: lower lobe of lung Qualified Code(s): J18.9 - Pneumonia, unspecified organism (4) Afib Code(s): I48.91 - UNSPECIFIED ATRIAL FIBRILLATION Qualifiers: Atrial fibrillation type: unspecified Qualified Code(s): I48.91 - Unspecified atrial fibrillation (5) Diastolic dysfunction without heart failure Code(s): I51.9 - HEART DISEASE, UNSPECIFIED Assessment/Plan - Problems (1) Paroxysmal atrial fibrillation Assessment/Plan: -seen by cardiology -on ac -controlled -d/c tele Code(s): I48.0 - PAROXYSMAL ATRIAL FIBRILLATION (2) COPD with exacerbation Assessment/Plan: -seen by pulmonary and ID -IV abx day 5 -IV steroids--to po -Nasal o2 -bronchodilators Code(s): J44.1 - CHRONIC OBSTRUCTIVE PULMONARY DISEASE W (ACUTE) EXACERBATION (3) PNA (pneumonia) Assessment/Plan: -seen by pulmonary and ID -IV abx day 5 -IV steroids to po -Nasal o2 -bronchodilators -cxr Code(s): J18.9 - PNEUMONIA, UNSPECIFIED ORGANISM Qualifiers: Pneumonia type: due to unspecified organism Laterality: bilateral Lung location: lower lobe of lung Qualified Code(s): J18.9 - Pneumonia, unspecified organism
[2017-07-24] MEDS: DABIGATRAN ETEXILATE MESYLATE 150 MG CAPSULE PO SCH ×2 (10:28→21:34)
[2017-07-24] MEDS: MULTIVITAMINS THER W-MINERALS COMBO TABLET (FP) PO SCH (10:29)
[2017-07-24] MEDS: PANTOPRAZOLE 20 MG TABLET (FP) PO SCH (10:29)
[2017-07-24] MEDS: FLUTICASONE/SALMETEROL 100 MCG/50 MCG DISKUS IH SCH ×2 (10:30→21:34)
[2017-07-24] MEDS: TIOTROPIUM BROMIDE 18 MCG/INH (DEVICE W/ 5 CAPSULES) IH SCH (10:30)
--- NOTE | 2017-07-24 11:12 | PN ---
Progress Note, Physician History of Present Illness: PULMONARY ALERT,FEELING BETTER,LESS DYSPNEIC,LESS CONGESTED,+COUGH - Current Medication List Current Medications: Active Medications Acetaminophen (Tylenol -) 650 mg PO Q6H PRN PRN Reason: PAIN Last Admin: 07/20/17 20:34 Dose: 650 mg Albuterol Sulfate (Ventolin 0.083% Nebulizer Soln -) 1 amp NEB Q4H PRN PRN Reason: SHORT OF BREATH/WHEEZING Albuterol/Ipratropium (Duoneb -) 1 amp NEB RQID [facility] Last Admin: 07/24/17 07:45 Dose: 1 amp Dabigatran (Pradaxa -) 150 mg PO BID [facility] Last Admin: 07/24/17 10:28 Dose: 150 mg Diltiazem HCl (Cardizem Injection -) 10 mg IVPUSH Q4H PRN PRN Reason: TACHYCARDIA Last Admin: 07/20/17 16:45 Dose: 10 mg Diltiazem HCl (Cardizem Cd -) 120 mg PO DAILY [facility] Last Admin: 07/24/17 10:29 Dose: 120 mg Cefepime HCl (Maxipime 1 Gm Premix Ivpb) 1 gm in 50 mls @ 100 mls/hr IVPB Q8H- IV [facility] Last Admin: 07/24/17 10:28 Dose: 100 mls/hr Multivitamins/Minerals (Theragran-M) 1 each PO DAILY [facility] Last Admin: 07/24/17 10:29 Dose: 1 each Pantoprazole Sodium (Protonix -) 20 mg PO DAILY [facility] Last Admin: 07/24/17 10:29 Dose: 20 mg Prednisone (Deltasone -) 30 mg PO BID [facility] Fluticasone/Salmeterol (Advair 100mcg/50mcg -) 1 puff IH BID [facility] Last Admin: 07/24/17 10:30 Dose: 1 puff Tiotropium [place] (Spiriva -) 1 puff IH DAILY [facility] Last Admin: 07/24/17 10:30 Dose: 1 puff - Objective Vital Signs: Vital Signs Temperature 97.8 F 07/24/17 05:00 Pulse Rate 94 H 07/24/17 05:00 Respiratory Rate 20 07/24/17 05:00 Blood Pressure 122/76 07/24/17 05:00 O2 Sat by Pulse Oximetry (%) 96 07/23/17 20:03 Constitutional: Yes: Well Nourished, Calm Eyes: Yes: WNL HENT: Yes: WNL Neck: Yes: WNL Cardiovascular: Yes: Pulse Irregular, S1, S2 Respiratory: Yes: Rhonchi (SCATTERED STANLEY RHONCHI) Gastrointestinal: Yes: Normal Bowel Sounds, Soft Extremities: Yes: WNL Edema: No Labs: CBC, BMP 07/24/17 05:15 07/24/17 06:15 - ....Imaging Chest X-ray: Report Reviewed, Image Reviewed (INCREASED CONGESTION BILATERALLY) Problem List - Problems (1) Acute on chronic respiratory failure with hypoxemia Code(s): J96.21 - ACUTE AND CHRONIC RESPIRATORY FAILURE WITH HYPOXIA (2) COPD with exacerbation Code(s): J44.1 - CHRONIC OBSTRUCTIVE PULMONARY DISEASE W (ACUTE) EXACERBATION (3) Interstitial lung disease Code(s): J84.9 - INTERSTITIAL PULMONARY DISEASE, UNSPECIFIED (4) PNA (pneumonia) Code(s): J18.9 - PNEUMONIA, UNSPECIFIED ORGANISM Qualifiers: Pneumonia type: due to unspecified organism Laterality: bilateral Lung location: lower lobe of lung Qualified Code(s): J18.9 - Pneumonia, unspecified organism (5) Sepsis Code(s): A41.9 - SEPSIS, UNSPECIFIED ORGANISM (6) Rapid atrial fibrillation Code(s): I48.91 - UNSPECIFIED ATRIAL FIBRILLATION (7) Hypotension Code(s): I95.9 - HYPOTENSION, UNSPECIFIED (8) 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 Assessment/Plan IMP ACUTE ON CHRONIC HYPOXEMIC RESPIRATORY FAILURE PNEUMONIA HEMOPTYSIS ADVANCE COPD O2 DEPENDENT ILD/PULMONARY FIBROSIS,LIKELY ASBESTOSIS ASBESTOS PLEURAL DISEASE HYPOTENSION RAPID AFIB LV DIASTOLIC DYSFUNCTION PLAN CONYINUE ANTIBIOTICS PER ID INHALED BRONCHODILATORS STEROIDS O2 RATE CONTROL PER CARDIOLOGY F/U CHEST X-RAYS STRICT I+OS DR ZAMORANO Problem List - Problems (1) Acute on chronic respiratory failure with hypoxemia Code(s): J96.21 - ACUTE AND CHRONIC RESPIRATORY FAILURE WITH HYPOXIA (2) COPD with exacerbation Code(s): J44.1 - CHRONIC OBSTRUCTIVE PULMONARY DISEASE W (ACUTE) EXACERBATION (3) Interstitial lung disease Code(s): J84.9 - INTERSTITIAL PULMONARY DISEASE, UNSPECIFIED (4) PNA (pneumonia) Code(s): J18.9 - PNEUMONIA, UNSPECIFIED ORGANISM Qualifiers: Pneumonia type: due to unspecified organism Laterality: bilateral Lung location: lower lobe of lung Qualified Code(s): J18.9 - Pneumonia, unspecified organism (5) Sepsis Code(s): A41.9 - SEPSIS, UNSPECIFIED ORGANISM (6) Rapid atrial fibrillation Code(s): I48.91 - UNSPECIFIED ATRIAL FIBRILLATION (7) Hypotension Code(s): I95.9 - HYPOTENSION, UNSPECIFIED (8) 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
--- NOTE | 2017-07-24 12:31 | PN ---
Progress Note (short form) - Note Progress Note: eating lunch c/o wheezing, unable to expectorate brown sputum production Vital Signs Period Temp Pulse Resp BP Sys/Starkey Pulse Ox Last 24 Hr 97.4 F-98.2 F 87-102 20-20 121-130/72-88 96 cor-rrr lungs bilateral wheezing and rhonchi abd soft,nt ext trace edema CBC, BMP 07/24/17 05:15 07/24/17 06:15 Microbiology 07/19/17 01:15 Blood - Peripheral Venous Blood Culture - Final NO GROWTH AFTER 5 DAYS INCUBATION 07/19/17 01:15 Blood - Peripheral Venous Blood Culture - Final NO GROWTH AFTER 5 DAYS INCUBATION 07/19/17 09:31 Sputum - Expectorated Gram Stain - Final 07/19/17 13:00 Urine For Antigen Detection Legionella Antigen - Final 07/19/17 13:00 Urine For Antigen Detection Streptococcus pneumoniae Antigen (M - Final 07/19/17 03:50 Nasopharyngeal Swab Influenza Types A,B Antigen (NAHED) - Final 07/19/17 03:50 Nasopharyngeal Swab - Final a/p HCAP- continue cefepime day #5 ?CHF- consider diuresis weight gain noted rapid afib-improved history of pulm htn/ILD ppm/defib Problem List - Problems (1) PNA (pneumonia) Code(s): J18.9 - PNEUMONIA, UNSPECIFIED ORGANISM Qualifiers: Pneumonia type: due to unspecified organism Laterality: bilateral Lung location: lower lobe of lung Qualified Code(s): J18.9 - Pneumonia, unspecified organism (2) COPD with exacerbation Code(s): J44.1 - CHRONIC OBSTRUCTIVE PULMONARY DISEASE W (ACUTE) EXACERBATION (3) Afib Code(s): I48.91 - UNSPECIFIED ATRIAL FIBRILLATION Qualifiers: Atrial fibrillation type: unspecified Qualified Code(s): I48.91 - Unspecified atrial fibrillation (5) Interstitial lung disease Code(s): J84.9 - INTERSTITIAL PULMONARY DISEASE, UNSPECIFIED
[2017-07-24] MEDS ORDERED: PT OWN MED DRAWER 7, Y5N ONE ×3 (14:31→20:17)
[2017-07-24] MEDS ORDERED: SODIUM CHLORIDE 500 ML IV STA (15:10)
[2017-07-24] MEDS ORDERED: ALBUTEROL SO4 0.083% IH SOL 2.5 MG/3 ML VIAL.NEB. NEB PRN (15:10)
--- NOTE | 2017-07-24 17:07 | PN ---
Progress Note, Physician Chief Complaint: Events noted Generalized weakness AF with periods of increased ventricular response feels better History of Present Illness: Patient was seen and examined. Awake and alert. Chart was reviewed Denies chest pain or palpitations Intermittent dyspnea - Current Medication List Current Medications: Active Medications Acetaminophen (Tylenol -) 650 mg PO Q6H PRN PRN Reason: PAIN Last Admin: 07/20/17 20:34 Dose: 650 mg Albuterol Sulfate (Ventolin 0.083% Nebulizer Soln -) 1 amp NEB Q4H PRN PRN Reason: SHORT OF BREATH/WHEEZING Albuterol/Ipratropium (Duoneb -) 1 amp NEB RQID [facility] Dabigatran (Pradaxa -) 150 mg PO BID [facility] Diltiazem HCl (Cardizem Injection -) 10 mg IVPUSH Q4H PRN PRN Reason: TACHYCARDIA Last Admin: 07/20/17 16:45 Dose: 10 mg Diltiazem HCl (Cardizem Cd -) 120 mg PO DAILY [facility] Last Admin: 07/24/17 10:29 Dose: 120 mg Cefepime HCl (Maxipime 1 Gm Premix Ivpb) 1 gm in 50 mls @ 100 mls/hr IVPB Q8H- IV [facility] Last Admin: 07/24/17 10:28 Dose: 100 mls/hr Multivitamins/Minerals (Theragran-M) 1 each PO DAILY [facility] Pantoprazole Sodium (Protonix -) 20 mg PO DAILY [facility] Last Admin: 07/24/17 10:29 Dose: 20 mg Prednisone (Deltasone -) 30 mg PO BID [facility] Fluticasone/Salmeterol (Advair 100mcg/50mcg -) 1 puff IH RBID [facility] Tiotropium [place] (Spiriva -) 1 puff IH DAILY [facility] - Objective Vital Signs: Vital Signs Temperature 98.4 F 07/24/17 09:00 Pulse Rate 90 07/24/17 09:00 Respiratory Rate 22 07/24/17 09:00 Blood Pressure 124/76 07/24/17 09:00 O2 Sat by Pulse Oximetry (%) 97 07/24/17 09:00 Eyes: Yes: PERRL HENT: Yes: Atraumatic Neck: Yes: Supple Cardiovascular: Yes: Pulse Irregular, Murmur (Soft SM), S1, S2 Respiratory: Yes: Diminished Gastrointestinal: Yes: Normal Bowel Sounds, Soft. No: Tenderness Edema: No Additional Findings/Remarks: - Review of Systems Constitutional: (+) Weakness. denies: Chills, Fever Cardiovascular: (+) Shortness of Breath, denies: Chest Pain, Palpitations Respiratory: denies: SOB, denies: Cough, Hemoptysis, Orthopnea, PND Gastrointestinal: denies: Abdominal Pain, Constipation, Diarrhea, Melena, Nausea , Rectal Bleeding, Vomiting Musculoskeletal: denies: Joint Pain Neurological: denies: Weakness. 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 Code(s): J92.0 - PLEURAL PLAQUE WITH PRESENCE OF ASBESTOS (4) Interstitial lung disease Code(s): J84.9 - INTERSTITIAL PULMONARY DISEASE, UNSPECIFIED (5) PNA (pneumonia) Code(s): J18.9 - PNEUMONIA, UNSPECIFIED ORGANISM Qualifiers: Pneumonia type: due to unspecified organism Laterality: bilateral Lung location: lower lobe of lung Qualified Code(s): J18.9 - Pneumonia, unspecified organism (6) Rapid atrial fibrillation Code(s): I48.91 - UNSPECIFIED ATRIAL FIBRILLATION (8) Renal insufficiency Code(s): N28.9 - DISORDER OF KIDNEY AND URETER, UNSPECIFIED (9) Syncope Code(s): R55 - SYNCOPE AND COLLAPSE Qualifiers: Syncope type: unspecified Qualified Code(s): R55 - Syncope and collapse Assessment/Plan 1. Atrial fibrillation with periods of increased ventricular response 2. Underlying pulmonary fibrosis/ILD, asbestosis, pulmonary and pleural disease , pulmonary infiltrates suggests pneumonia and presence of pleural effusion 3. Post Medtronic ICD for ventricular arrhythmia at [facility] with monitoring functions suspended 4. HTN/HCVD 5. 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 Gout PLAN: 1. Continue antibiotic coverage as per primary service. Continue steroid taper and bronchodilators 2. Continue Cardizem - titrate for rate control 3. Continue Pradaxa 150 bid 4. Clarify when he is scheduled for generator change on his defibrillator (he has been scheduled with Dr. Osvaldo Gaston as outpatient)- will need this as his ICD has reached [facility] - will make arrangement as outpatient as soon as possible Further plans are to follow Mono Reilly MD
[2017-07-24] MEDS: predniSONE 10 MG TABLET (UD) PO SCH (21:34)
--- NOTE | 2017-07-25 01:39 | CONSULT ---
Consult Consult Specialty:: endocrine Referred by:: dr.annabi roy Reason for Consultation:: diabetes mellitus - History of Present Illness Chief Complaint: weakness difficulty breathing high sugars History of Present Illness: 87 y m pmh copd,ild,afib/flutter,has had cough wheezing ,respiratory difficulty and urti requiring iv steroids and oxygent therapy,with high sugars as consequence of steroid needs,he has had poor appetite and nausea,no history of high sugars in past - History Source History Provided By: Patient, Family Member - Past Medical History Cardio/Vascular: Yes: HTN, Other (s/p ppm/aicd.) Pulmonary: Yes: COPD, Pulmonary Fibrosis - Past Surgical History Past Surgical History: Yes: Permanent Pacemaker - Alcohol/Substance Use Hx Alcohol Use: No - Smoking History Smoking history: Never smoked Have you smoked in the past 12 months: No Aproximately how many cigarettes per day: 0 Home Medications - Allergies Allergies/Adverse Reactions: Allergies Allergy/AdvReac Type Severity Reaction Status Date / Time Penicillins Allergy Intermediate Rash Verified 07/19/17 01:47 - Home Medications Home Medications: Ambulatory Orders Albuterol Sulfate Inhaler - [Ventolin HFA Inhaler -] 2 inh PO Q4H 10/29/13 Tiotropium Nebo [Spiriva] 18 mcg IH DAILY 11/19/14 Dabigatran Etexilate Mesylate [Pradaxa -] 150 mg PO BID 06/12/17 Metoprolol Succinate [Toprol Xl -] 25 mg PO DAILY 06/12/17 Multivit-Min/FA/Lycopen/Lutein [Centrum Silver Tablet] 1 each PO DAILY 06/12/17 Salmeterol/Fluticasone [Advair 100Mcg/50Mcg -] 1 inh PO BID PRN 06/12/17 Levofloxacin [Levaquin -] 500 mg PO DAILY #4 tablet MDD 1 06/16/17 Meclizine HCl [Antivert -] 12.5 mg PO BID PRN 07/19/17 Review of Systems - Review of Systems Constitutional: reports: Lethargy, Weakness Eyes: reports: No Symptoms HENT: reports: Throat Pain Neck: reports: Decreased ROM Cardiovascular: reports: Palpitations, Shortness of Breath Respiratory: reports: Exercise Intolerance, SOB on Exertion Gastrointestinal: reports: Bloating Genitourinary: reports: No Symptoms Breasts: reports: No Symptoms Reported Musculoskeletal: reports: Muscle Pain, Muscle Weakness Integumentary: reports: No Symptoms Neurological: reports: Numbness, Weakness Endocrine: reports: No Symptoms Physical Exam Vital Signs: Vital Signs Temperature 98.0 F 07/24/17 19:00 Pulse Rate 95 H 07/24/17 19:59 Respiratory Rate 20 07/24/17 19:59 Blood Pressure 131/65 07/24/17 19:59 O2 Sat by Pulse Oximetry (%) 94 L 07/24/17 21:00 Constitutional: Yes: Anxious Eyes: Yes: EOM Intact HENT: Yes: Normocephalic Neck: Yes: Trachea Midline Cardiovascular: Yes: Tachycardia, Pulse Irregular, Murmur Respiratory: Yes: Poor Air Entry, Rhonchi, Tachypnea Gastrointestinal: Yes: Normal Bowel Sounds, Soft ...Rectal Exam: Yes: Deferred Renal/: Yes: WNL Musculoskeletal: Yes: WNL Extremities: Yes: WNL Edema: No Neurological: Yes: Alert, Oriented Labs: CBC, BMP 07/24/17 05:15 07/24/17 06:15 Problem List - Problems (1) Type 2 diabetes mellitus with diabetic peripheral angiopathy without gangrene Code(s): E11.51 - TYPE 2 DIABETES W DIABETIC PERIPHERAL ANGIOPATH W/O GANGRENE (2) Acute on chronic respiratory failure with hypoxemia Code(s): J96.21 - ACUTE AND CHRONIC RESPIRATORY FAILURE WITH HYPOXIA (3) 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 Code(s): J92.0 - PLEURAL PLAQUE WITH PRESENCE OF ASBESTOS (4) Hypotension Code(s): I95.9 - HYPOTENSION, UNSPECIFIED (5) PNA (pneumonia) Code(s): J18.9 - PNEUMONIA, UNSPECIFIED ORGANISM Qualifiers: Pneumonia type: due to unspecified organism Laterality: bilateral Lung location: lower lobe of lung Qualified Code(s): J18.9 - Pneumonia, unspecified organism (6) Pulmonary asbestosis Code(s): J61 - PNEUMOCONIOSIS DUE TO ASBESTOS AND OTHER MINERAL FIBERS Assessment/Plan Current Active Problems Acute on chronic respiratory failure with hypoxemia (Acute) COPD with exacerbation (Acute) 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 (Acute) Hypotension (Acute) Interstitial lung disease (Acute) PNA (pneumonia) (Acute) Pulmonary asbestosis (Acute) Rapid atrial fibrillation (Acute) Sepsis (Acute) dm niddm Abnormal Lab Results 07/24/17 07/24/17 05:15 06:15 RBC 3.69 L Hgb 11.6 L MCV 96.3 H Neutrophils % 91.4 H Lymphocytes % 3.6 L BUN 23 H Random Glucose 143 H Calcium 7.6 L Total Protein 6.0 L Albumin 2.6 L Laboratory Results - last 24 hr 07/24/17 07/24/17 07/24/17 05:15 06:15 06:15 WBC 8.9 RBC 3.69 L Hgb 11.6 L Hct 35.5 MCV 96.3 H MCH 31.6 MCHC 32.8 RDW 14.4 Plt Count 197 MPV 7.8 Neutrophils % 91.4 H Lymphocytes % 3.6 L Monocytes % 4.9 Eosinophils % 0.0 Basophils % 0.1 Sodium 139 Potassium 3.7 Chloride 105 Carbon Dioxide 26 Anion Gap 8 BUN 23 H Creatinine 0.7 D Creat Clearance w eGFR > 60 Random Glucose 143 H Hemoglobin A1c % 5.9 Calcium 7.6 L Total Bilirubin 0.6 AST 17 ALT 48 D Alkaline Phosphatase 64 Total Protein 6.0 L Albumin 2.6 L impression: plan bgm novolog coverage while on steroid metformin 500mg bid home glucose monitoring as outpatient bid
[2017-07-25] MEDS: CEFEPIME HCL/D5W 1 GM/50 ML BAG IVPB SCH ×3 (02:12→17:52)
[2017-07-25] MEDS ORDERED: metFORMIN HCL 500 MG TABLET (FP) PO SCH (07:00)
[2017-07-25] MEDS: ALBUTEROL SO4 2.5/IPRATROPIUM 0.5 INH SOL 3 ML VIAL.NEB. NEB SCH ×4 (07:45→21:15)
[2017-07-25] MEDS: FLUTICASONE/SALMETEROL 100 MCG/50 MCG DISKUS IH SCH ×2 (09:01→22:40)
[2017-07-25] MEDS ORDERED: TIOTROPIUM BROMIDE 18 MCG/INH (DEVICE W/ 5 CAPSULES) IH SCH (10:00)
--- NOTE | 2017-07-25 10:27 | PN ---
Progress Note, Physician Chief Complaint: patient seen and examined says that he has cough and is not able to bring up the sputum - Current Medication List Current Medications: Active Medications Acetaminophen (Tylenol -) 650 mg PO Q6H PRN PRN Reason: PAIN Last Admin: 07/20/17 20:34 Dose: 650 mg Albuterol Sulfate (Ventolin 0.083% Nebulizer Soln -) 1 amp NEB Q4H PRN PRN Reason: SHORT OF BREATH/WHEEZING Albuterol/Ipratropium (Duoneb -) 1 amp NEB RQID [facility] Last Admin: 07/25/17 07:45 Dose: 1 amp Dabigatran (Pradaxa -) 150 mg PO BID [facility] Last Admin: 07/24/17 21:34 Dose: 150 mg Diltiazem HCl (Cardizem Injection -) 10 mg IVPUSH Q4H PRN PRN Reason: TACHYCARDIA Last Admin: 07/20/17 16:45 Dose: 10 mg Diltiazem HCl (Cardizem Cd -) 120 mg PO DAILY [facility] Last Admin: 07/24/17 10:29 Dose: 120 mg Cefepime HCl (Maxipime 1 Gm Premix Ivpb) 1 gm in 50 mls @ 100 mls/hr IVPB Q8H- IV [facility] Last Admin: 07/25/17 02:12 Dose: 100 mls/hr Multivitamins/Minerals (Theragran-M) 1 each PO DAILY [facility] Pantoprazole Sodium (Protonix -) 20 mg PO DAILY [facility] Last Admin: 07/24/17 10:29 Dose: 20 mg Prednisone (Deltasone -) 30 mg PO BID [facility] Last Admin: 07/24/17 21:34 Dose: 30 mg Fluticasone/Salmeterol (Advair 100mcg/50mcg -) 1 puff IH RBID [facility] Last Admin: 07/24/17 21:34 Dose: 1 puff Tiotropium [place] (Spiriva -) 1 puff IH DAILY [facility] - Objective Vital Signs: Vital Signs Temperature 97.4 F L 07/25/17 06:00 Pulse Rate 84 07/25/17 06:00 Respiratory Rate 20 07/25/17 06:00 Blood Pressure 116/80 07/25/17 06:00 O2 Sat by Pulse Oximetry (%) 94 L 07/24/17 21:00 Constitutional: Yes: Calm Cardiovascular: Yes: Pulse Irregular, S1, S2 Respiratory: Yes: Rhonchi Gastrointestinal: Yes: Normal Bowel Sounds, Soft Neurological: Yes: Alert ([place]) Labs: CBC, BMP 07/24/17 05:15 07/24/17 06:15 Problem List - Problems (1) Afib Assessment/Plan: pradaxa and cardizem Code(s): I48.91 - UNSPECIFIED ATRIAL FIBRILLATION Qualifiers: Atrial fibrillation type: unspecified Qualified Code(s): I48.91 - Unspecified atrial fibrillation (2) Acute on chronic respiratory failure with hypoxemia Assessment/Plan: cefepime for HCAP bronchodilators steroids 30mg po bid oxygen weight gain noted cxr also show pulm congestion lasix 40mg one dose Code(s): J96.21 - ACUTE AND CHRONIC RESPIRATORY FAILURE WITH HYPOXIA (3) Congestive heart failure, diastolic, left, w/preserved LV function, NYHA class 4 Assessment/Plan: lasix one dose today Code(s): I50.30 - UNSPECIFIED DIASTOLIC (CONGESTIVE) HEART FAILURE
[2017-07-25] MEDS ORDERED: FUROSEMIDE 40 MG/4 ML INJECTABLE VIAL IVPUSH ONE (10:30)
[2017-07-25] MEDS ORDERED: PT OWN MED DRAWER 7, Y5N ONE ×2 (10:55→16:30)
[2017-07-25] MEDS: MULTIVITAMINS THER W-MINERALS COMBO TABLET (FP) PO SCH (11:02)
[2017-07-25] MEDS: PANTOPRAZOLE 20 MG TABLET (FP) PO SCH (11:02)
[2017-07-25] MEDS: predniSONE 10 MG TABLET (UD) PO SCH ×2 (11:02→22:40)
[2017-07-25] MEDS: DABIGATRAN ETEXILATE MESYLATE 150 MG CAPSULE PO SCH ×2 (11:03→22:40)
--- NOTE | 2017-07-25 12:20 | PN ---
Progress Note (short form) - Note Progress Note: PULMONARY States breathing about the same. Still with nonproductive cough, wheezing and shortness of breath. No fevers or chills. Last Vital Signs Temp Pulse Resp BP Pulse Ox 98 F 96 H 20 116/77 94 L 07/25/17 11:18 07/25/17 11:18 07/25/17 11:18 07/25/17 11:18 07/24/17 21:00 Gen: mildly tachypneic with speaking Heart: RRR Lung: scattered rhonchi Abd: soft, nontender Ext: no edema CBC, BMP 07/24/17 05:15 07/24/17 06:15 Active Medications Acetaminophen (Tylenol -) 650 mg PO Q6H PRN PRN Reason: PAIN Last Admin: 07/20/17 20:34 Dose: 650 mg Albuterol Sulfate (Ventolin 0.083% Nebulizer Soln -) 1 amp NEB Q4H PRN PRN Reason: SHORT OF BREATH/WHEEZING Albuterol/Ipratropium (Duoneb -) 1 amp NEB RQID [facility] Last Admin: 07/25/17 11:20 Dose: 1 amp Dabigatran (Pradaxa -) 150 mg PO BID [facility] Last Admin: 07/25/17 11:03 Dose: 150 mg Diltiazem HCl (Cardizem Injection -) 10 mg IVPUSH Q4H PRN PRN Reason: TACHYCARDIA Last Admin: 07/20/17 16:45 Dose: 10 mg Diltiazem HCl (Cardizem Cd -) 120 mg PO DAILY [facility] Last Admin: 07/25/17 11:02 Dose: 120 mg Guaifenesin (Mucinex -) 600 mg PO BID [facility] Cefepime HCl (Maxipime 1 Gm Premix Ivpb) 1 gm in 50 mls @ 100 mls/hr IVPB Q8H- IV [facility] Last Admin: 07/25/17 11:02 Dose: 100 mls/hr Multivitamins/Minerals (Theragran-M) 1 each PO DAILY [facility] Last Admin: 07/25/17 11:02 Dose: 1 each Pantoprazole Sodium (Protonix -) 20 mg PO DAILY [facility] Last Admin: 07/25/17 11:02 Dose: 20 mg Prednisone (Deltasone -) 30 mg PO BID [facility] [place] Last Admin: 07/25/17 11:02 Dose: 30 mg Fluticasone/Salmeterol (Advair 100mcg/50mcg -) 1 puff IH RBID [facility] Last Admin: 07/25/17 09:01 Dose: 1 puff Tiotropium [place] (Spiriva -) 1 puff IH DAILY [facility] A/P Acute on Chronic Hypoxic Respiratory Failure Pneumonia Hemoptysis resolved Interstitial Lung Disease/Pulmonary Fibrosis COPD Atrial Fibrillation LV Diastolic Dysfunction - continue antibiotics - continue prednisone at current dose - inhaled bronchodilators - rate controlled - continue anticoagulation - chest PT
--- NOTE | 2017-07-25 12:46 | PN ---
Progress Note, Physician Chief Complaint: Events noted Generalized weakness Complains of intermittent SOB and cough productive brown sputum History of Present Illness: Patient was seen and examined. Awake and alert. Chart was reviewed Denies chest pain or palpitations Intermittent dyspnea and cough as outlined Also complains of headache - Current Medication List Current Medications: Active Medications Acetaminophen (Tylenol -) 650 mg PO Q6H PRN PRN Reason: PAIN Last Admin: 07/20/17 20:34 Dose: 650 mg Albuterol Sulfate (Ventolin 0.083% Nebulizer Soln -) 1 amp NEB Q4H PRN PRN Reason: SHORT OF BREATH/WHEEZING Albuterol/Ipratropium (Duoneb -) 1 amp NEB RQID [facility] Last Admin: 07/25/17 11:20 Dose: 1 amp Dabigatran (Pradaxa -) 150 mg PO BID [facility] Last Admin: 07/25/17 11:03 Dose: 150 mg Diltiazem HCl (Cardizem Injection -) 10 mg IVPUSH Q4H PRN PRN Reason: TACHYCARDIA Last Admin: 07/20/17 16:45 Dose: 10 mg Diltiazem HCl (Cardizem Cd -) 120 mg PO DAILY [facility] Last Admin: 07/25/17 11:02 Dose: 120 mg Guaifenesin (Mucinex -) 600 mg PO BID [facility] Cefepime HCl (Maxipime 1 Gm Premix Ivpb) 1 gm in 50 mls @ 100 mls/hr IVPB Q8H- IV [facility] Last Admin: 07/25/17 11:02 Dose: 100 mls/hr Multivitamins/Minerals (Theragran-M) 1 each PO DAILY [facility] Last Admin: 07/25/17 11:02 Dose: 1 each Pantoprazole Sodium (Protonix -) 20 mg PO DAILY [facility] Last Admin: 07/25/17 11:02 Dose: 20 mg Prednisone (Deltasone -) 30 mg PO BID [facility] Last Admin: 07/25/17 11:02 Dose: 30 mg Fluticasone/Salmeterol (Advair 100mcg/50mcg -) 1 puff IH RBID [facility] Last Admin: 07/25/17 09:01 Dose: 1 puff Tiotropium [place] (Spiriva -) 1 puff IH DAILY [facility] - Objective Vital Signs: Vital Signs Temperature 98 F 07/25/17 11:18 Pulse Rate 96 H 01/23/18 11:18 Respiratory Rate 20 07/25/17 11:18 Blood Pressure 116/77 07/25/17 11:18 O2 Sat by Pulse Oximetry (%) 94 L 07/24/17 21:00 Eyes: Yes: PERRL HENT: Yes: Atraumatic Neck: Yes: Supple Cardiovascular: Yes: Pulse Irregular, S1, S2 Respiratory: Yes: Diminished, Rhonchi Gastrointestinal: Yes: Normal Bowel Sounds, Soft. No: Tenderness Edema: No Additional Findings/Remarks: - Review of Systems Constitutional: (+) Weakness. denies: Chills, Fever Cardiovascular: (+) Shortness of Breath, denies: Chest Pain, Palpitations Respiratory: (+) SOB, (+) Cough, denies: Hemoptysis, Orthopnea, PND Gastrointestinal: denies: Abdominal Pain, Constipation, Diarrhea, Melena, Nausea , Rectal Bleeding, Vomiting Musculoskeletal: denies: Joint Pain Neurological: (+) Weakness. 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 Code(s): J92.0 - PLEURAL PLAQUE WITH PRESENCE OF ASBESTOS (4) Interstitial lung disease Code(s): J84.9 - INTERSTITIAL PULMONARY DISEASE, UNSPECIFIED (5) PNA (pneumonia) Code(s): J18.9 - PNEUMONIA, UNSPECIFIED ORGANISM Qualifiers: Pneumonia type: due to unspecified organism Laterality: bilateral Lung location: lower lobe of lung Qualified Code(s): J18.9 - Pneumonia, unspecified organism (6) Rapid atrial fibrillation Code(s): I48.91 - UNSPECIFIED ATRIAL FIBRILLATION (8) Renal insufficiency Code(s): N28.9 - DISORDER OF KIDNEY AND URETER, UNSPECIFIED (9) Syncope Code(s): R55 - SYNCOPE AND COLLAPSE Qualifiers: Syncope type: unspecified Qualified Code(s): R55 - Syncope and collapse Assessment/Plan 1. Atrial fibrillation with periods of increased ventricular response 2. Underlying pulmonary fibrosis/ILD, asbestosis, pulmonary and pleural disease , pulmonary infiltrates suggests pneumonia and presence of pleural effusion 3. Post Medtronic ICD for ventricular arrhythmia at [facility] with monitoring functions suspended 4. HTN/HCVD 5. 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 Gout PLAN: 1. Continue antibiotic coverage as per primary service. 2. Continue Cardizem - titrate for rate control 3. Continue Pradaxa 150 bid 4. Clarify when he is scheduled for generator change on his defibrillator (he has been scheduled with Dr. Osvaldo Gaston as outpatient)- will need this as his ICD has reached [facility] - will make arrangement as outpatient as soon as possible 5. Continue pulmonary treatment and give Tylenol for headache Further plans are to follow Mono Reilly MD
[2017-07-25] MEDS: guaiFENesin 600 MG TABLET.ER (FP) PO SCH ×2 (13:24→22:40)
--- NOTE | 2017-07-25 13:27 | PN ---
Progress Note (short form) - Note Progress Note: patient is dizzy and hR in 120/s will order CE and EKG transfer to telemtry Problem List - Problems (1) Afib Code(s): I48.91 - UNSPECIFIED ATRIAL FIBRILLATION Qualifiers: Atrial fibrillation type: unspecified Qualified Code(s): I48.91 - Unspecified atrial fibrillation (2) Acute on chronic respiratory failure with hypoxemia Code(s): J96.21 - ACUTE AND CHRONIC RESPIRATORY FAILURE WITH HYPOXIA (3) Congestive heart failure, diastolic, left, w/preserved LV function, NYHA class 4 Code(s): I50.30 - UNSPECIFIED DIASTOLIC (CONGESTIVE) HEART FAILURE
[2017-07-25] MEDS ORDERED: dilTIAZem HCL 30 MG TABLET (FP) PO ONE (18:00)
[2017-07-26] MEDS: CEFEPIME HCL/D5W 1 GM/50 ML BAG IVPB SCH ×3 (02:00→17:14)
--- NOTE | 2017-07-26 08:02 | EKG ---
Test Reason : Blood Pressure : / mmHG Vent. Rate : 108 BPM Atrial Rate : 055 BPM P-R Int : 000 ms QRS Dur : 086 ms QT Int : 350 ms P-R-T Axes : 000 -24 040 degrees QTc Int : 469 ms ATRIAL FIBRILLATION WITH RAPID VENTRICULAR RESPONSE ABNORMAL ECG WHEN COMPARED WITH ECG OF 19-JUL-2017 01:08, ATRIAL FIBRILLATION HAS REPLACED SINUS RHYTHM NONSPECIFIC T WAVE ABNORMALITY NOW EVIDENT IN INFERIOR LEADS Confirmed by MATTHEW MABRY, DANIELLA ([id number]) on 07/26/2017 8:02:09 AM Referred By: GUEVARA ALANIZ Confirmed By:DANIELLA CASTRO MD
[2017-07-26] MEDS: ALBUTEROL SO4 2.5/IPRATROPIUM 0.5 INH SOL 3 ML VIAL.NEB. NEB SCH ×4 (08:42→20:49)
[2017-07-26] MEDS ORDERED: PT OWN MED DRAWER 7, Y5N ONE ×2 (09:23→17:00)
[2017-07-26] MEDS: PANTOPRAZOLE 20 MG TABLET (FP) PO SCH (09:42)
[2017-07-26] MEDS: guaiFENesin 600 MG TABLET.ER (FP) PO SCH ×2 (09:42→22:09)
[2017-07-26] MEDS: FLUTICASONE/SALMETEROL 100 MCG/50 MCG DISKUS IH SCH ×2 (09:42→22:10)
[2017-07-26] MEDS: DABIGATRAN ETEXILATE MESYLATE 150 MG CAPSULE PO SCH ×2 (09:42→22:09)
[2017-07-26] MEDS: predniSONE 10 MG TABLET (UD) PO SCH ×2 (09:42→22:08)
[2017-07-26] MEDS: MULTIVITAMINS THER W-MINERALS COMBO TABLET (FP) PO SCH (09:42)
--- NOTE | 2017-07-26 11:37 | PN ---
Progress Note, Physician - Current Medication List Current Medications: Active Medications Acetaminophen (Tylenol -) 650 mg PO Q6H PRN PRN Reason: PAIN Last Admin: 07/20/17 20:34 Dose: 650 mg Albuterol Sulfate (Ventolin 0.083% Nebulizer Soln -) 1 amp NEB Q4H PRN PRN Reason: SHORT OF BREATH/WHEEZING Albuterol/Ipratropium (Duoneb -) 1 amp NEB RQID [facility] Last Admin: 07/26/17 08:42 Dose: 1 amp Dabigatran (Pradaxa -) 150 mg PO BID [facility] Last Admin: 07/26/17 09:42 Dose: 150 mg Diltiazem HCl (Cardizem Injection -) 10 mg IVPUSH Q4H PRN PRN Reason: TACHYCARDIA Last Admin: 07/20/17 16:45 Dose: 10 mg Diltiazem HCl (Cardizem Cd -) 180 mg PO DAILY [facility] Last Admin: 07/26/17 09:42 Dose: 180 mg Guaifenesin (Mucinex -) 600 mg PO BID [facility] Last Admin: 07/26/17 09:42 Dose: 600 mg Cefepime HCl (Maxipime 1 Gm Premix Ivpb) 1 gm in 50 mls @ 100 mls/hr IVPB Q8H- IV [facility] Last Admin: 07/26/17 09:42 Dose: 100 mls/hr Multivitamins/Minerals (Theragran-M) 1 each PO DAILY [facility] Last Admin: 07/26/17 09:42 Dose: 1 each Pantoprazole Sodium (Protonix -) 20 mg PO DAILY [facility] Last Admin: 07/26/17 09:42 Dose: 20 mg Prednisone (Deltasone -) 30 mg PO BID [facility] Last Admin: 07/26/17 09:42 Dose: 30 mg Fluticasone/Salmeterol (Advair 100mcg/50mcg -) 1 puff IH RBID [facility] Last Admin: 07/26/17 09:42 Dose: 1 puff Tiotropium [place] (Spiriva -) 1 puff IH DAILY [facility] - Objective Vital Signs: Vital Signs Temperature 98.7 F 07/26/17 10:00 Pulse Rate 99 H 07/26/17 10:00 Respiratory Rate 20 07/26/17 10:00 Blood Pressure 117/62 07/26/17 10:00 O2 Sat by Pulse Oximetry (%) 90 L 07/26/17 09:00 Labs: CBC, BMP 07/24/17 05:15 07/24/17 06:15 Problem List - Problems (1) Sepsis Code(s): A41.9 - SEPSIS, UNSPECIFIED ORGANISM (2) COPD with exacerbation Code(s): J44.1 - CHRONIC OBSTRUCTIVE PULMONARY DISEASE W (ACUTE) EXACERBATION (3) PNA (pneumonia) Code(s): J18.9 - PNEUMONIA, UNSPECIFIED ORGANISM Qualifiers: Pneumonia type: due to unspecified organism Laterality: bilateral Lung location: lower lobe of lung Qualified Code(s): J18.9 - Pneumonia, unspecified organism (4) Afib Code(s): I48.91 - UNSPECIFIED ATRIAL FIBRILLATION Qualifiers: Atrial fibrillation type: unspecified Qualified Code(s): I48.91 - Unspecified atrial fibrillation (5) Diastolic dysfunction without heart failure Code(s): I51.9 - HEART DISEASE, UNSPECIFIED Assessment/Plan - Problems (1) Afib Assessment/Plan: pradaxa and cardizem TELE CARDIO EKG Code(s): I48.91 - UNSPECIFIED ATRIAL FIBRILLATION Qualifiers: Atrial fibrillation type: unspecified Qualified Code(s): I48.91 - Unspecified atrial fibrillation (2) Acute on chronic respiratory failure with hypoxemia Assessment/Plan: cefepime for HCAP bronchodilators steroids 30mg po bid CXR LABS oxygen weight gain noted cxr also show pulm congestion lasix 40mg one dose Code(s): J96.21 - ACUTE AND CHRONIC RESPIRATORY FAILURE WITH HYPOXIA (3) Congestive heart failure, diastolic, left, w/preserved LV function, NYHA class 4 Assessment/Plan: lasix one dose today Code(s): I50.30 - UNSPECIFIED DIASTOLIC (CONGESTIVE) HEART FAILURE
--- NOTE | 2017-07-26 11:50 | PN ---
Progress Note, Physician History of Present Illness: Transferred back to telemetry for dizziness, back in rapid afib. - Current Medication List Current Medications: Active Medications Acetaminophen (Tylenol -) 650 mg PO Q6H PRN PRN Reason: PAIN Last Admin: 07/20/17 20:34 Dose: 650 mg Albuterol Sulfate (Ventolin 0.083% Nebulizer Soln -) 1 amp NEB Q4H PRN PRN Reason: SHORT OF BREATH/WHEEZING Albuterol/Ipratropium (Duoneb -) 1 amp NEB RQID [facility] Last Admin: 07/26/17 08:42 Dose: 1 amp Dabigatran (Pradaxa -) 150 mg PO BID [facility] Last Admin: 07/26/17 09:42 Dose: 150 mg Diltiazem HCl (Cardizem Injection -) 10 mg IVPUSH Q4H PRN PRN Reason: TACHYCARDIA Last Admin: 07/20/17 16:45 Dose: 10 mg Diltiazem HCl (Cardizem Cd -) 180 mg PO DAILY [facility] Last Admin: 07/26/17 09:42 Dose: 180 mg Furosemide (Lasix Injection -) 40 mg IVPUSH DAILY [facility] Guaifenesin (Mucinex -) 600 mg PO BID [facility] Last Admin: 07/26/17 09:42 Dose: 600 mg Cefepime HCl (Maxipime 1 Gm Premix Ivpb) 1 gm in 50 mls @ 100 mls/hr IVPB Q8H- IV [facility] Last Admin: 07/26/17 09:42 Dose: 100 mls/hr Multivitamins/Minerals (Theragran-M) 1 each PO DAILY [facility] Last Admin: 07/26/17 09:42 Dose: 1 each Pantoprazole Sodium (Protonix -) 20 mg PO DAILY [facility] Last Admin: 07/26/17 09:42 Dose: 20 mg Prednisone (Deltasone -) 30 mg PO BID [facility] Last Admin: 07/26/17 09:42 Dose: 30 mg Fluticasone/Salmeterol (Advair 100mcg/50mcg -) 1 puff IH RBID [facility] Last Admin: 07/26/17 09:42 Dose: 1 puff Tiotropium [place] (Spiriva -) 1 puff IH DAILY [facility] - Objective Vital Signs: Vital Signs Temperature 98.7 F 07/26/17 10:00 Pulse Rate 99 H 07/26/17 10:00 Respiratory Rate 20 07/26/17 10:00 Blood Pressure 117/62 07/26/17 10:00 O2 Sat by Pulse Oximetry (%) 90 L 07/26/17 09:00 Constitutional: Yes: No Distress, Calm, Thin Neck: Yes: Supple Cardiovascular: Yes: Tachycardia, Pulse Irregular, Murmur (2/6 SM) Respiratory: Yes: Regular, On Nasal O2 Gastrointestinal: Yes: Normal Bowel Sounds, Soft Edema: No Labs: CBC, BMP 07/24/17 05:15 07/24/17 06:15 - ....Imaging EKG: Report Reviewed (Tele: Rapid afib 120s) Problem List - Problems (1) Acute on chronic respiratory failure with hypoxemia Code(s): J96.21 - ACUTE AND CHRONIC RESPIRATORY FAILURE WITH HYPOXIA (2) COPD with exacerbation Code(s): J44.1 - CHRONIC OBSTRUCTIVE PULMONARY DISEASE W (ACUTE) EXACERBATION (3) 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 Code(s): J92.0 - PLEURAL PLAQUE WITH PRESENCE OF ASBESTOS (4) Interstitial lung disease Code(s): J84.9 - INTERSTITIAL PULMONARY DISEASE, UNSPECIFIED (5) PNA (pneumonia) Code(s): J18.9 - PNEUMONIA, UNSPECIFIED ORGANISM Qualifiers: Pneumonia type: due to unspecified organism Laterality: bilateral Lung location: lower lobe of lung Qualified Code(s): J18.9 - Pneumonia, unspecified organism (6) Pulmonary asbestosis Code(s): J61 - PNEUMOCONIOSIS DUE TO ASBESTOS AND OTHER MINERAL FIBERS (7) Afib Code(s): I48.91 - UNSPECIFIED ATRIAL FIBRILLATION Qualifiers: Atrial fibrillation type: unspecified Qualified Code(s): I48.91 - Unspecified atrial fibrillation (8) Cerebrovascular disease Code(s): I67.9 - CEREBROVASCULAR DISEASE, UNSPECIFIED (9) Chronic anticoagulation Code(s): Z79.01 - [facility] (CURRENT) USE OF ANTICOAGULANTS (10) Diastolic dysfunction without heart failure Code(s): I51.9 - HEART DISEASE, UNSPECIFIED Assessment/Plan 06/13/2017 Echo: Borderline cLVH, normal LV size and fxn, mod-severe TR with severe pulm HTN, mod AR, mild MR 1. Atrial fibrillation with periods of increased ventricular response 2. Underlying pulmonary fibrosis/ILD, asbestosis, pulmonary and pleural disease , pulmonary infiltrates suggests pneumonia and presence of pleural effusion 3. Post Medtronic ICD for ventricular arrhythmia at [facility] with monitoring functions suspended 4. HTN/HCVD 5. 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 Gout PLAN: 1. Continue antibiotic coverage as per primary service. 2. Increase Cardizem CD 240 qd with IV Cardizem as needed for rate control 3. Continue Pradaxa 150 bid 4. Clarify when he is scheduled for generator change on his defibrillator (he has been scheduled with Dr. Osvaldo Gaston as outpatient)- will need this as his ICD has reached [facility] - will make arrangement as outpatient as soon as possible 5. IV diuresis initiated, BD, oral steroids with GI protection, O2 as needed, f/ u CXR
[2017-07-26] MEDS: FUROSEMIDE 40 MG/4 ML INJECTABLE VIAL IVPUSH SCH (11:52)
[2017-07-26 13:21] LABS: BASO % 0.1 % (0-2.0); HEMATOCRIT 38.5 % (35.4-49); HEMOGLOBIN 12.6 GM/dL (11.7-16.9); LYMPH % 1.6 % (8-40); MCH 31.5 pg (25.7-33.7); MCHC 32.6 g/dl (32.0-35.9); MEAN CELL VOLUME 96.7 fl (80-96); MEAN PLT VOLUME 8.3 fl (7.5-11.1); MONO % 4.6 % (3.8-10.2); NEUT % 93.7 % (42.8-82.8); PLATELET COUNT 251 K/MM3 (134-434); RBC 3.99 M/mm3 (4.00-5.60); RDW 14.7 % (11.9-15.9); WHITE BLOOD COUNT 16.6 K/mm3 (4.0-10.0)
--- NOTE | 2017-07-26 14:15 | PN ---
Progress Note, Physician Chief Complaint: "BREATHING IS TIGHT" History of Present Illness: PATIENT COMPLAINING OF SOB/DENIES CP OR PALPS TRANSFERRED BACK TO [facility] DUE TO RAPID AF - Current Medication List Current Medications: Active Medications Acetaminophen (Tylenol -) 650 mg PO Q6H PRN PRN Reason: PAIN Last Admin: 07/20/17 20:34 Dose: 650 mg Albuterol Sulfate (Ventolin 0.083% Nebulizer Soln -) 1 amp NEB Q4H PRN PRN Reason: SHORT OF BREATH/WHEEZING Albuterol/Ipratropium (Duoneb -) 1 amp NEB RQID [facility] Last Admin: 07/26/17 11:30 Dose: 1 amp Dabigatran (Pradaxa -) 150 mg PO BID [facility] Last Admin: 07/26/17 09:42 Dose: 150 mg Diltiazem HCl (Cardizem Injection -) 10 mg IVPUSH Q4H PRN PRN Reason: TACHYCARDIA Last Admin: 07/20/17 16:45 Dose: 10 mg Diltiazem HCl (Cardizem Cd -) 240 mg PO DAILY [facility] Furosemide (Lasix Injection -) 40 mg IVPUSH DAILY [facility] Last Admin: 07/26/17 11:52 Dose: 40 mg Guaifenesin (Mucinex -) 600 mg PO BID [facility] Last Admin: 07/26/17 09:42 Dose: 600 mg Cefepime HCl (Maxipime 1 Gm Premix Ivpb) 1 gm in 50 mls @ 100 mls/hr IVPB Q8H- IV [facility] Last Admin: 07/26/17 09:42 Dose: 100 mls/hr Multivitamins/Minerals (Theragran-M) 1 each PO DAILY [facility] Last Admin: 07/26/17 09:42 Dose: 1 each Pantoprazole Sodium (Protonix -) 20 mg PO DAILY [facility] Last Admin: 07/26/17 09:42 Dose: 20 mg Prednisone (Deltasone -) 30 mg PO BID [facility] Last Admin: 07/26/17 09:42 Dose: 30 mg Fluticasone/Salmeterol (Advair 100mcg/50mcg -) 1 puff IH RBID [facility] Last Admin: 07/26/17 09:42 Dose: 1 puff Tiotropium [place] (Spiriva -) 1 puff IH DAILY [facility] - Objective Vital Signs: Vital Signs Temperature 98.7 F 07/26/17 10:00 Pulse Rate 99 H 07/26/17 10:00 Respiratory Rate 20 07/26/17 10:00 Blood Pressure 117/62 07/26/17 10:00 O2 Sat by Pulse Oximetry (%) 90 L 07/26/17 09:00 Constitutional: Yes: Calm Eyes: Yes: EOM Intact HENT: Yes: Normocephalic Neck: Yes: Trachea Midline Cardiovascular: Yes: Tachycardia, Pulse Irregular, S1, S2 Respiratory: Yes: Diminished Gastrointestinal: Yes: Normal Bowel Sounds Edema: No Neurological: Yes: Alert Labs: CBC, BMP 07/26/17 13:00 - ....Imaging Chest X-ray: Report Reviewed, Image Reviewed EKG: Report Reviewed, Image Reviewed Problem List - Problems (1) Acute on chronic respiratory failure with hypoxemia Code(s): J96.21 - ACUTE AND CHRONIC RESPIRATORY FAILURE WITH HYPOXIA (2) COPD with exacerbation Code(s): J44.1 - CHRONIC OBSTRUCTIVE PULMONARY DISEASE W (ACUTE) EXACERBATION (3) 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 Code(s): J92.0 - PLEURAL [place] WITH PRESENCE OF ASBESTOS (4) Congestive heart failure, diastolic, left, w/preserved LV function, NYHA class 4 Code(s): I50.30 - UNSPECIFIED DIASTOLIC (CONGESTIVE) HEART FAILURE (5) Hypotension Code(s): I95.9 - HYPOTENSION, UNSPECIFIED (6) Rapid atrial fibrillation Code(s): I48.91 - UNSPECIFIED ATRIAL FIBRILLATION Assessment/Plan A/P Acute Hypoxic Respiratory Failure improving LV Diastolic Dysfunction/rapid AF Pulmonary HTN Acute on Chronic Renal Failure improving Atelectasis CAD s/p CABG HTN DM - NIPPV Support as needed - Monitor urine output, creatinine - O2 to keep SpO2 >90% - PO as tolerated - DVT prophylaxis - abx/steroids to taper - inhaled bronchodilators - rate control Brendan LEWIS MD
[2017-07-26 14:46] LABS: ALBUMIN 2.8 g/dl (3.4-5.0); ANION GAP 11 (8-16); BILIRUBIN,TOTAL 0.7 mg/dL (0.2-1.0); BLOOD UREA NITROGEN 22 mg/dL (7-18); CHLORIDE 99 mmol/L (98-107); CO2 29 mmol/L (21-32); CREATININE 0.9 mg/dL (0.7-1.3); GLUCOSE,RANDOM 160 mg/dL (74-106); POTASSIUM 4.1 mmol/L (3.5-5.1); SGOT/AST 15 U/L (15-37); SODIUM 139 mmol/L (136-145); TOT PROT 6.7 g/dl (6.4-8.2)
[2017-07-26 14:49] LABS: ALK PHOS 87 U/L (45-117); N-TERMINAL BNP 5038.04 pg/ml (5-450); SGPT/ALT 45 U/L (12-78)
--- NOTE | 2017-07-26 17:45 | PN ---
Progress Note (short form) - Note Progress Note: much improved +expectoration now on diuretics Vital Signs Period Temp Pulse Resp BP Sys/Starkey Pulse Ox Last 24 Hr 97.3 F-98.9 F 87-104 18-22 100-129/62-80 90-90 cor-rrr lungs bibasilar crackles, no wheezing abd soft,nt ext no edema CBC, BMP 07/26/17 13:00 07/26/17 13:00 Microbiology 07/24/17 18:00 Sputum - Expectorated Gram Stain - Final 07/24/17 18:00 Sputum - Expectorated Sputum Culture - Preliminary NORMAL RESPIRATORY NATASHA 07/19/17 01:15 Blood - Peripheral Venous Blood Culture - Final NO GROWTH AFTER 5 DAYS INCUBATION 07/19/17 01:15 Blood - Peripheral Venous Blood Culture - Final NO GROWTH AFTER 5 DAYS INCUBATION 07/19/17 09:31 Sputum - Expectorated Gram Stain - Final 07/19/17 13:00 Urine For Antigen Detection Legionella Antigen - Final 07/19/17 13:00 Urine For Antigen Detection Streptococcus pneumoniae Antigen (M - Final 07/19/17 03:50 Nasopharyngeal Swab Influenza Types A,B Antigen (NAHED) - Final 07/19/17 03:50 Nasopharyngeal Swab - Final a/p HCAP- continue cefepime day #7- consider d/c antibiotics in am ?CHF-improved with diuresis rapid afib-improved history of pulm htn/ILD ppm/defib Problem List - Problems (1) PNA (pneumonia) Code(s): J18.9 - PNEUMONIA, UNSPECIFIED ORGANISM Qualifiers: Pneumonia type: due to unspecified organism Laterality: bilateral Lung location: lower lobe of lung Qualified Code(s): J18.9 - Pneumonia, unspecified organism (2) COPD with exacerbation Code(s): J44.1 - CHRONIC OBSTRUCTIVE PULMONARY DISEASE W (ACUTE) EXACERBATION (3) Afib Code(s): I48.91 - UNSPECIFIED ATRIAL FIBRILLATION Qualifiers: Atrial fibrillation type: unspecified Qualified Code(s): I48.91 - Unspecified atrial fibrillation (5) Interstitial lung disease Code(s): J84.9 - INTERSTITIAL PULMONARY DISEASE, UNSPECIFIED
[2017-07-27] MEDS: CEFEPIME HCL/D5W 1 GM/50 ML BAG IVPB SCH ×3 (01:54→18:16)
[2017-07-27 07:45] LABS: BASO % 0.1 % (0-2.0); EOS % 0.2 % (0-4.5); HEMATOCRIT 35.7 % (35.4-49); HEMOGLOBIN 11.5 GM/dL (11.7-16.9); LYMPH % 2.2 % (8-40); MCH 31.3 pg (25.7-33.7); MCHC 32.3 g/dl (32.0-35.9); MEAN CELL VOLUME 96.8 fl (80-96); MEAN PLT VOLUME 8.7 fl (7.5-11.1); MONO % 5.1 % (3.8-10.2); NEUT % 92.4 % (42.8-82.8); PLATELET COUNT 211 K/MM3 (134-434); RBC 3.68 M/mm3 (4.00-5.60); WHITE BLOOD COUNT 18.1 K/mm3 (4.0-10.0)
[2017-07-27] MEDS: ALBUTEROL SO4 2.5/IPRATROPIUM 0.5 INH SOL 3 ML VIAL.NEB. NEB SCH ×4 (08:05→20:30)
[2017-07-27 08:15] LABS: CHLORIDE 99 mmol/L (98-107); SODIUM 140 mmol/L (136-145)
[2017-07-27 08:21] LABS: ANION GAP 8 (8-16); BLOOD UREA NITROGEN 25 mg/dL (7-18); CO2 33 mmol/L (21-32); CREATININE 0.8 mg/dL (0.7-1.3); GLUCOSE,RANDOM 123 mg/dL (74-106)
--- NOTE | 2017-07-27 08:27 | PN ---
Progress Note, Physician History of Present Illness: PT C/O SOB AND DIZZINESS - Current Medication List Current Medications: Active Medications Acetaminophen (Tylenol -) 650 mg PO Q6H PRN PRN Reason: PAIN Last Admin: 07/20/17 20:34 Dose: 650 mg Albuterol Sulfate (Ventolin 0.083% Nebulizer Soln -) 1 amp NEB Q4H PRN PRN Reason: SHORT OF BREATH/WHEEZING Albuterol/Ipratropium (Duoneb -) 1 amp NEB RQID [facility] Last Admin: 07/27/17 08:05 Dose: 1 amp Dabigatran (Pradaxa -) 150 mg PO BID [facility] Last Admin: 07/26/17 22:09 Dose: 150 mg Diltiazem HCl (Cardizem Injection -) 10 mg IVPUSH Q4H PRN PRN Reason: TACHYCARDIA Last Admin: 07/20/17 16:45 Dose: 10 mg Diltiazem HCl (Cardizem Cd -) 240 mg PO DAILY [facility] Furosemide (Lasix Injection -) 40 mg IVPUSH DAILY [facility] Last Admin: 07/26/17 11:52 Dose: 40 mg Guaifenesin (Mucinex -) 600 mg PO BID [facility] Last Admin: 07/26/17 22:09 Dose: 600 mg Cefepime HCl (Maxipime 1 Gm Premix Ivpb) 1 gm in 50 mls @ 100 mls/hr IVPB Q8H- IV [facility] Last Admin: 07/27/17 01:54 Dose: 100 mls/hr Multivitamins/Minerals (Theragran-M) 1 each PO DAILY [facility] Last Admin: 07/26/17 09:42 Dose: 1 each Pantoprazole Sodium (Protonix -) 20 mg PO DAILY [facility] Last Admin: 07/26/17 09:42 Dose: 20 mg Prednisone (Deltasone -) 30 mg PO BID [facility] Last Admin: 07/26/17 22:08 Dose: 30 mg Fluticasone/Salmeterol (Advair 100mcg/50mcg -) 1 puff IH RBID [facility] Last Admin: 07/26/17 22:10 Dose: 1 puff - Objective Vital Signs: Vital Signs Temperature 97.9 F 07/27/17 05:00 Pulse Rate 90 07/27/17 05:00 Respiratory Rate 20 07/27/17 05:00 Blood Pressure 114/67 07/27/17 05:00 O2 Sat by Pulse Oximetry (%) 99 07/26/17 21:00 Cardiovascular: Yes: Regular Rate and Rhythm Respiratory: Yes: Regular, CTA Bilaterally Gastrointestinal: Yes: Normal Bowel Sounds, Soft Labs: CBC, BMP 07/27/17 06:36 07/27/17 06:36 Problem List - Problems (1) Sepsis Code(s): A41.9 - SEPSIS, UNSPECIFIED ORGANISM (2) COPD with exacerbation Code(s): J44.1 - CHRONIC OBSTRUCTIVE PULMONARY DISEASE W (ACUTE) EXACERBATION (3) PNA (pneumonia) Code(s): J18.9 - PNEUMONIA, UNSPECIFIED ORGANISM Qualifiers: Pneumonia type: due to unspecified organism Laterality: bilateral Lung location: lower lobe of lung Qualified Code(s): J18.9 - Pneumonia, unspecified organism (4) Afib Code(s): I48.91 - UNSPECIFIED ATRIAL FIBRILLATION Qualifiers: Atrial fibrillation type: unspecified Qualified Code(s): I48.91 - Unspecified atrial fibrillation (5) Diastolic dysfunction without heart failure Code(s): I51.9 - HEART DISEASE, UNSPECIFIED Assessment/Plan - Problems (1) Afib Assessment/Plan: pradaxa and cardizem TELE CARDIO EKG Code(s): I48.91 - UNSPECIFIED ATRIAL FIBRILLATION Qualifiers: Atrial fibrillation type: unspecified Qualified Code(s): I48.91 - Unspecified atrial fibrillation (2) Acute on chronic respiratory failure with hypoxemia Assessment/Plan: cefepime for HCAP bronchodilators steroids 30mg po bid CXR LABS oxygen weight gain noted cxr also show pulm congestion lasix 40mg one dose Code(s): J96.21 - ACUTE AND CHRONIC RESPIRATORY FAILURE WITH HYPOXIA (3) Congestive heart failure, diastolic, left, w/preserved LV function, NYHA class 4 Assessment/Plan: lasix daily improving Code(s): I50.30 - UNSPECIFIED DIASTOLIC (CONGESTIVE) HEART FAILURE
[2017-07-27] MEDS: FLUTICASONE/SALMETEROL 100 MCG/50 MCG DISKUS IH SCH ×2 (08:56→20:28)
[2017-07-27] MEDS: guaiFENesin 600 MG TABLET.ER (FP) PO SCH ×2 (09:00→21:27)
[2017-07-27] MEDS: DABIGATRAN ETEXILATE MESYLATE 150 MG CAPSULE PO SCH ×2 (09:00→21:27)
[2017-07-27] MEDS: PANTOPRAZOLE 20 MG TABLET (FP) PO SCH (09:01)
[2017-07-27] MEDS: FUROSEMIDE 40 MG/4 ML INJECTABLE VIAL IVPUSH SCH (09:01)
[2017-07-27] MEDS: MULTIVITAMINS THER W-MINERALS COMBO TABLET (FP) PO SCH (09:02)
[2017-07-27] MEDS: predniSONE 10 MG TABLET (UD) PO SCH (09:02)
--- NOTE | 2017-07-27 11:48 | PN ---
Progress Note, Physician History of Present Illness: Remains in rapid afib with dizziness, dyspnea improved. - Current Medication List Current Medications: Active Medications Acetaminophen (Tylenol -) 650 mg PO Q6H PRN PRN Reason: PAIN Last Admin: 07/20/17 20:34 Dose: 650 mg Albuterol Sulfate (Ventolin 0.083% Nebulizer Soln -) 1 amp NEB Q4H PRN PRN Reason: SHORT OF BREATH/WHEEZING Albuterol/Ipratropium (Duoneb -) [address] [facility] Last Admin: 07/27/17 11:03 Dose: 1 amp Dabigatran (Pradaxa -) [address] [facility] Last Admin: 07/27/17 09:00 Dose: 150 mg Diltiazem HCl (Cardizem Injection -) 10 mg IVPUSH Q4H PRN PRN Reason: TACHYCARDIA Last Admin: 07/20/17 16:45 Dose: 10 mg Diltiazem HCl (Cardizem Cd -) [address] [facility] Last Admin: 07/27/17 09:02 Dose: 240 mg Furosemide (Lasix Injection -) [address] [facility] Last Admin: 07/27/17 09:01 Dose: 40 mg Guaifenesin (Mucinex -) [address] [facility] Last Admin: 07/27/17 09:00 Dose: 600 mg Cefepime HCl (Maxipime 1 Gm Premix Ivpb) 1 gm in 50 mls @ 100 mls/hr IVPB Q8H- IV [facility] Last Admin: 07/27/17 09:02 Dose: 100 mls/hr Multivitamins/Minerals (Theragran-M) 1 each PO DAILY [facility] Last Admin: 07/27/17 09:02 Dose: 1 each Pantoprazole Sodium (Protonix -) [address] [facility] Last Admin: 07/27/17 09:01 Dose: 20 mg Prednisone (Deltasone -) [address] [facility] Last Admin: 07/27/17 09:02 Dose: 30 mg Fluticasone/Salmeterol (Advair 100mcg/50mcg -) [address] [facility] Last Admin: 07/27/17 08:56 Dose: 1 puff - Objective Vital Signs: Vital Signs Temperature 97.9 F 07/27/17 05:00 Pulse Rate 90 07/27/17 09:00 Respiratory Rate 20 07/27/17 09:00 Blood Pressure 102/52 07/27/17 09:00 O2 Sat by Pulse Oximetry (%) 99 07/27/17 09:00 Constitutional: Yes: No Distress, Calm, Thin Neck: Yes: Supple Cardiovascular: Yes: Tachycardia, Pulse Irregular Respiratory: Yes: Regular, Diminished, On Nasal O2 Gastrointestinal: Yes: Normal Bowel Sounds, Soft Edema: No Labs: CBC, BMP 07/27/17 06:36 07/27/17 06:36 - ....Imaging Chest X-ray: Report Reviewed (Improved aeration left hemithorax) Problem List - Problems (1) Acute on chronic respiratory failure with hypoxemia Code(s): J96.21 - ACUTE AND CHRONIC RESPIRATORY FAILURE WITH HYPOXIA (2) COPD with exacerbation Code(s): J44.1 - CHRONIC OBSTRUCTIVE PULMONARY DISEASE W (ACUTE) EXACERBATION (3) 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 Code(s): J92.0 - PLEURAL [place] WITH PRESENCE OF ASBESTOS (4) Interstitial lung disease Code(s): J84.9 - INTERSTITIAL PULMONARY DISEASE, UNSPECIFIED (5) PNA (pneumonia) Code(s): J18.9 - PNEUMONIA, UNSPECIFIED ORGANISM Qualifiers: Pneumonia type: due to unspecified organism Laterality: bilateral Lung location: lower lobe of lung Qualified Code(s): J18.9 - Pneumonia, unspecified organism (6) Pulmonary asbestosis Code(s): J61 - PNEUMOCONIOSIS DUE TO ASBESTOS AND OTHER MINERAL FIBERS (7) Afib Code(s): I48.91 - UNSPECIFIED ATRIAL FIBRILLATION Qualifiers: Atrial fibrillation type: unspecified Qualified Code(s): I48.91 - Unspecified atrial fibrillation (8) Cerebrovascular disease Code(s): I67.9 - CEREBROVASCULAR DISEASE, UNSPECIFIED (9) Chronic anticoagulation Code(s): Z79.01 - [facility] (CURRENT) USE OF ANTICOAGULANTS (10) Diastolic dysfunction without heart failure Code(s): I51.9 - HEART DISEASE, UNSPECIFIED Assessment/Plan 06/13/2017 Echo: Borderline cLVH, normal LV size and fxn, mod-severe TR with severe pulm HTN, mod AR, mild MR 1. Atrial fibrillation with periods of increased ventricular response 2. Underlying pulmonary fibrosis/ILD, asbestosis, pulmonary and pleural disease , pulmonary infiltrates suggests pneumonia and presence of pleural effusion 3. Post [employer] ICD for ventricular arrhythmia at [facility] with monitoring functions suspended 4. HTN/HCVD 5. 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 Gout PLAN: 1. Continue antibiotic coverage as per primary service. 2. Increase Cardizem CD 240 qd with IV Cardizem as needed for rate control 3. Continue Pradaxa 150 bid 4. Clarify when he is scheduled for generator change on his defibrillator (he has been scheduled with Dr. Osvaldo Gaston as outpatient)- will need this as his ICD has reached [facility] - will make arrangement as outpatient as soon as possible 5. Resume oral diuresis, BD, oral steroids with GI protection, O2 as needed, f/ u CXR
--- NOTE | 2017-07-27 11:58 | PN ---
Progress Note, Physician History of Present Illness: pulmonary alert,feeling better,less cough,-hemoptysis - Current Medication List Current Medications: Active Medications Acetaminophen (Tylenol -) 650 mg PO Q6H PRN PRN Reason: PAIN Last Admin: 07/20/17 20:34 Dose: 650 mg Albuterol Sulfate (Ventolin 0.083% Nebulizer Soln -) 1 amp NEB Q4H PRN PRN Reason: SHORT OF BREATH/WHEEZING Albuterol/Ipratropium (Duoneb -) 1 amp NEB RQID [facility] Last Admin: 07/27/17 11:03 Dose: 1 amp Dabigatran (Pradaxa -) 150 mg PO BID [facility] Last Admin: 07/27/17 09:00 Dose: 150 mg Diltiazem HCl (Cardizem Injection -) 10 mg IVPUSH Q4H PRN PRN Reason: TACHYCARDIA Last Admin: 07/20/17 16:45 Dose: 10 mg Diltiazem HCl (Cardizem Cd -) 240 mg PO DAILY [facility] Last Admin: 07/27/17 09:02 Dose: 240 mg Furosemide (Lasix Injection -) 40 mg IVPUSH DAILY [facility] Last Admin: 07/27/17 09:01 Dose: 40 mg Guaifenesin (Mucinex -) 600 mg PO BID [facility] Last Admin: 07/27/17 09:00 Dose: 600 mg Cefepime HCl (Maxipime 1 Gm Premix Ivpb) 1 gm in 50 mls @ 100 mls/hr IVPB Q8H- IV [facility] Last Admin: 07/27/17 09:02 Dose: 100 mls/hr Multivitamins/Minerals (Theragran-M) 1 each PO DAILY [facility] Last Admin: 07/27/17 09:02 Dose: 1 each Pantoprazole Sodium (Protonix -) 20 mg PO DAILY [facility] Last Admin: 07/27/17 09:01 Dose: 20 mg Prednisone (Deltasone -) 30 mg PO BID [facility] Last Admin: 07/27/17 09:02 Dose: 30 mg Fluticasone/Salmeterol (Advair 100mcg/50mcg -) 1 puff IH RBID [facility] Last Admin: 07/27/17 08:56 Dose: 1 puff - Objective Vital Signs: Vital Signs Temperature 97.9 F 07/27/17 05:00 Pulse Rate 90 07/27/17 09:00 Respiratory Rate 20 07/27/17 09:00 Blood Pressure 102/52 07/27/17 09:00 O2 Sat by Pulse Oximetry (%) 99 07/27/17 09:00 Constitutional: Yes: Well Nourished, Calm Eyes: Yes: WNL HENT: Yes: WNL Neck: Yes: WNL Cardiovascular: Yes: Pulse Irregular, S1, S2 Respiratory: Yes: Rales (randy crackles) Gastrointestinal: Yes: Normal Bowel Sounds, Soft Extremities: Yes: WNL Edema: No Labs: CBC, BMP 07/27/17 06:36 07/27/17 06:36 - ....Imaging Chest X-ray: Report Reviewed, Image Reviewed (inproving congestion) Problem List - Problems (1) Acute on chronic respiratory failure with hypoxemia Code(s): J96.21 - ACUTE AND CHRONIC RESPIRATORY FAILURE WITH HYPOXIA (2) COPD with exacerbation Code(s): J44.1 - CHRONIC OBSTRUCTIVE PULMONARY DISEASE W (ACUTE) EXACERBATION (3) Interstitial lung disease Code(s): J84.9 - INTERSTITIAL PULMONARY DISEASE, UNSPECIFIED (4) PNA (pneumonia) Code(s): J18.9 - PNEUMONIA, UNSPECIFIED ORGANISM Qualifiers: Qualified Code(s): J18.9 - Pneumonia, unspecified organism (5) Sepsis Code(s): A41.9 - SEPSIS, UNSPECIFIED ORGANISM (6) Rapid atrial fibrillation Code(s): I48.91 - UNSPECIFIED ATRIAL FIBRILLATION (7) Hypotension Code(s): I95.9 - HYPOTENSION, UNSPECIFIED (8) 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 Assessment/Plan IMP ACUTE ON CHRONIC HYPOXEMIC RESPIRATORY FAILURE improving PNEUMONIA improving HEMOPTYSIS resolved ADVANCE COPD O2 DEPENDENT ILD/PULMONARY FIBROSIS,LIKELY ASBESTOSIS ASBESTOS PLEURAL DISEASE HYPOTENSION RAPID AFIB LV DIASTOLIC DYSFUNCTION PLAN CONYINUE ANTIBIOTICS PER ID INHALED BRONCHODILATORS STEROID TAPER O2 RATE CONTROL PER CARDIOLOGY F/U CHEST X-RAYS STRICT I+OS DR ZAMORANO Problem List - Problems (1) Acute on chronic respiratory failure with hypoxemia Code(s): J96.21 - ACUTE AND CHRONIC RESPIRATORY FAILURE WITH HYPOXIA (2) COPD with exacerbation Code(s): J44.1 - CHRONIC OBSTRUCTIVE PULMONARY DISEASE W (ACUTE) EXACERBATION (3) Interstitial lung disease Code(s): J84.9 - INTERSTITIAL PULMONARY DISEASE, UNSPECIFIED (4) PNA (pneumonia) Code(s): J18.9 - PNEUMONIA, UNSPECIFIED ORGANISM Qualifiers: Pneumonia type: due to unspecified organism Laterality: bilateral Lung location: lower lobe of lung Qualified Code(s): J18.9 - Pneumonia, unspecified organism (5) Sepsis Code(s): A41.9 - SEPSIS, UNSPECIFIED ORGANISM (6) Rapid atrial fibrillation Code(s): I48.91 - UNSPECIFIED ATRIAL FIBRILLATION (7) Hypotension Code(s): I95.9 - HYPOTENSION, UNSPECIFIED (8) 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
[2017-07-27] MEDS ORDERED: PT OWN MED DRAWER 7, Y5N ONE (18:15)
[2017-07-27] MEDS ORDERED: predniSONE 20 MG TABLET (UD) PO SCH (22:00)
[2017-07-28] MEDS: CEFEPIME HCL/D5W 1 GM/50 ML BAG IVPB SCH (01:20)
[2017-07-28] MEDS: ALBUTEROL SO4 2.5/IPRATROPIUM 0.5 INH SOL 3 ML VIAL.NEB. NEB SCH ×2 (08:09→11:05)
[2017-07-28 08:54] LABS: BASO % 0.1 % (0-2.0); EOS % 0.2 % (0-4.5); HEMATOCRIT 34.3 % (35.4-49); HEMOGLOBIN 11.1 GM/dL (11.7-16.9); LYMPH % 3.7 % (8-40); MCH 31.6 pg (25.7-33.7); MCHC 32.3 g/dl (32.0-35.9); MEAN CELL VOLUME 97.9 fl (80-96); MEAN PLT VOLUME 8.8 fl (7.5-11.1); MONO % 5.3 % (3.8-10.2); NEUT % 90.7 % (42.8-82.8); PLATELET COUNT 207 K/MM3 (134-434); RDW 14.9 % (11.9-15.9); WHITE BLOOD COUNT 16.2 K/mm3 (4.0-10.0)
--- NOTE | 2017-07-28 08:54 | DS ---
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, with SOB. Pt states that he first became SOB 5 days ago and he had a CXR done that revealed PNA. He was started on nebulizers on and levaquin on 07/17 and initially was feeling better but then around 10pm he was unable to catch his breath. He still reports SOB and increased weakness on exam. ER course was notable for: (1) WBC 15.2, LA 1.6 (2) CXR with increased patchy infiltrates Recent Travel: pt denies PAST MEDICAL HISTORY: COPD/ILD O2 dependent, pulmonary HTN, PAfib, vent arrhythmia s/p AICD, LV dysfunction, gout, congenital right sided malformation PAST SURGICAL HISTORY: cholecystectomy, AICD Social History: Smoking: quit 40 years ago, previous 1-1.5ppd Alcohol: pt denies Drugs: pt denies - Problems (1) Afib Assessment/Plan: pradaxa and cardizem TELE CARDIO EKG Code(s): I48.91 - UNSPECIFIED ATRIAL FIBRILLATION Qualifiers: Atrial fibrillation type: unspecified Qualified Code(s): I48.91 - Unspecified atrial fibrillation (2) Acute on chronic respiratory failure with hypoxemia Assessment/Plan: s/p cefepime for HCAP bronchodilators steroids 30mg po bid--taper CXR LABS oxygen weight gain noted cxr also show pulm congestion lasix 40mg Code(s): J96.21 - ACUTE AND CHRONIC RESPIRATORY FAILURE WITH HYPOXIA (3) Congestive heart failure, diastolic, left, w/preserved LV function, NYHA class 4 Assessment/Plan: lasix daily improving Code(s): I50.30 - UNSPECIFIED DIASTOLIC (CONGESTIVE) HEART FAILURE - Instructions Referrals: Citlaly Servin MD [Primary Care Provider] - - Home Medications Comprehensive Discharge Medication List: Ambulatory Orders Albuterol Sulfate Inhaler - [Ventolin HFA Inhaler -] 2 inh PO Q4H 10/29/13 Dabigatran Etexilate Mesylate [Pradaxa -] 150 mg PO BID 06/12/17 Multivit-Min/FA/Lycopen/Lutein [Centrum Silver Tablet] 1 each PO DAILY 06/12/17 Salmeterol/Fluticasone [Advair 100Mcg/50Mcg -] 1 inh PO BID PRN 06/12/17 Meclizine HCl [Antivert -] 12.5 mg PO BID PRN 07/19/17 Acetaminophen [Tylenol .Regular Strength -] 650 mg PO Q6H PRN tablet 07/28/17 Albuterol 2.5/Ipratropium 0.5 [Duoneb -] 1 amp NEB RQID amp 07/28/17 Diltiazem Cd [Cardizem Cd -] 240 mg PO DAILY cap.cd.24h 07/28/17 Furosemide [Lasix -] 20 mg PO DAILY tablet 07/28/17 Guaifenesin [Mucinex -] 600 mg PO BID tablet.er 07/28/17 Pantoprazole Sodium [Protonix -] 20 mg PO DAILY tablet.ec 07/28/17 Prednisone [Deltasone -] 15 mg PO BID tablet 07/28/17
[2017-07-28 09:39] LABS: ALBUMIN 2.6 g/dl (3.4-5.0); ALK PHOS 81 U/L (45-117); ANION GAP 9 (8-16); BLOOD UREA NITROGEN 29 mg/dL (7-18); CALCIUM 7.7 mg/dL (8.5-10.1); CHLORIDE 96 mmol/L (98-107); CO2 33 mmol/L (21-32); CREATININE 0.9 mg/dL (0.7-1.3); GLUCOSE,RANDOM 117 mg/dL (74-106); POTASSIUM 3.9 mmol/L (3.5-5.1); SGOT/AST 11 U/L (15-37); SGPT/ALT 30 U/L (12-78); SODIUM 138 mmol/L (136-145)
[2017-07-28] MEDS ORDERED: PT OWN MED DRAWER 7, Y5N ONE (09:49)
[2017-07-28] MEDS ORDERED: FUROSEMIDE 20 MG TABLET (FP) PO SCH (10:00)
[2017-07-28] MEDS ORDERED: predniSONE 10 MG TABLET (UD) PO SCH (10:00)
[2017-07-28] MEDS: guaiFENesin 600 MG TABLET.ER (FP) PO SCH (10:24)
[2017-07-28] MEDS: DABIGATRAN ETEXILATE MESYLATE 150 MG CAPSULE PO SCH (10:24)
[2017-07-28] MEDS: MULTIVITAMINS THER W-MINERALS COMBO TABLET (FP) PO SCH (10:24)
[2017-07-28] MEDS: PANTOPRAZOLE 20 MG TABLET (FP) PO SCH (10:24)
[2017-07-28] MEDS: FLUTICASONE/SALMETEROL 100 MCG/50 MCG DISKUS IH SCH (10:25)
--- NOTE | 2017-07-28 11:38 | PN ---
Progress Note, Physician History of Present Illness: Afib with improved rate-control, dyspnea improved. - Current Medication List Current Medications: Active Medications Acetaminophen (Tylenol -) 650 mg PO Q6H PRN PRN Reason: PAIN Last Admin: 07/20/17 20:34 Dose: 650 mg Albuterol/Ipratropium (Duoneb -) 1 amp NEB RQID [facility] Last Admin: 07/28/17 11:05 Dose: 1 amp Dabigatran (Pradaxa -) 150 mg PO BID [facility] Last Admin: 07/28/17 10:24 Dose: 150 mg Diltiazem HCl (Cardizem Injection -) 10 mg IVPUSH Q4H PRN PRN Reason: TACHYCARDIA Last Admin: 07/20/17 16:45 Dose: 10 mg Diltiazem HCl (Cardizem Cd -) 240 mg PO DAILY [facility] Last Admin: 07/28/17 10:24 Dose: 240 mg Furosemide (Lasix -) 20 mg PO DAILY [facility] Last Admin: 07/28/17 10:24 Dose: 20 mg Guaifenesin (Mucinex -) 600 mg PO BID [facility] Last Admin: 07/28/17 10:24 Dose: 600 mg Multivitamins/Minerals (Theragran-M) 1 each PO DAILY [facility] Last Admin: 07/28/17 10:24 Dose: 1 each Pantoprazole Sodium (Protonix -) 20 mg PO DAILY [facility] Last Admin: 07/28/17 10:24 Dose: 20 mg Prednisone (Deltasone -) 15 mg PO BID [facility] Last Admin: 07/28/17 10:28 Dose: 15 mg Fluticasone/Salmeterol (Advair 100mcg/50mcg -) 1 puff IH RBID [facility] Last Admin: 07/28/17 10:25 Dose: 1 puff - Objective Vital Signs: Vital Signs Temperature 98 F 07/28/17 09:00 Pulse Rate 86 07/28/17 09:00 Respiratory Rate 18 07/28/17 09:00 Blood Pressure 121/60 07/28/17 09:00 O2 Sat by Pulse Oximetry (%) 98 07/27/17 20:29 Constitutional: Yes: No Distress, Calm Neck: Yes: Supple Cardiovascular: Yes: Pulse Irregular Respiratory: Yes: Regular, Diminished Gastrointestinal: Yes: Normal Bowel Sounds, Soft Edema: No Labs: CBC, BMP 07/28/17 08:25 07/28/17 08:25 - ....Imaging Chest X-ray: Report Reviewed (Stable changes) Problem List - Problems (1) Acute on chronic respiratory failure with hypoxemia Code(s): J96.21 - ACUTE AND CHRONIC RESPIRATORY FAILURE WITH HYPOXIA (2) COPD with exacerbation Code(s): J44.1 - CHRONIC OBSTRUCTIVE PULMONARY DISEASE W (ACUTE) EXACERBATION (3) 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 Code(s): J92.0 - PLEURAL [place]QUE WITH PRESENCE OF ASBESTOS (4) Interstitial lung disease Code(s): J84.9 - INTERSTITIAL PULMONARY DISEASE, UNSPECIFIED (5) PNA (pneumonia) Code(s): J18.9 - PNEUMONIA, UNSPECIFIED ORGANISM Qualifiers: Pneumonia type: due to unspecified organism Laterality: bilateral Lung location: lower lobe of lung Qualified Code(s): J18.9 - Pneumonia, unspecified organism (6) Pulmonary asbestosis Code(s): J61 - PNEUMOCONIOSIS DUE TO ASBESTOS AND OTHER MINERAL FIBERS (7) Afib Code(s): I48.91 - UNSPECIFIED ATRIAL FIBRILLATION Qualifiers: Atrial fibrillation type: unspecified Qualified Code(s): I48.91 - Unspecified atrial fibrillation (8) Cerebrovascular disease Code(s): I67.9 - CEREBROVASCULAR DISEASE, UNSPECIFIED (9) Chronic anticoagulation Code(s): Z79.01 - [facility] (CURRENT) USE OF ANTICOAGULANTS (10) Diastolic dysfunction without heart failure Code(s): I51.9 - HEART DISEASE, UNSPECIFIED Assessment/Plan 06/13/2017 Echo: Borderline cLVH, normal LV size and fxn, mod-severe TR with severe pulm HTN, mod AR, mild MR 1. Atrial fibrillation with periods of increased ventricular response 2. Underlying pulmonary fibrosis/ILD, asbestosis, pulmonary and pleural disease , pulmonary infiltrates suggests pneumonia and presence of pleural effusion 3. Post [employer] ICD for ventricular arrhythmia at [facility] with monitoring functions suspended 4. HTN/HCVD 5. 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 Gout PLAN: 1. Continue Cardizem CD 240 qd with IV Cardizem as needed for rate control 3. Continue Pradaxa 150 bid, Lasix 20 qd 4. Clarify when he is scheduled for generator change on his defibrillator (he has been scheduled with Dr. [place] Sorbera as outpatient)- will need this as his ICD has reached [facility] - will make arrangement as outpatient as soon as possible 5. BD, oral steroids with GI protection, O2 as needed, d/c planning
--- NOTE | 2017-07-28 12:07 | PN ---
Progress Note, Physician Chief Complaint: "BREATHING IS IMPROVED History of Present Illness: USUAL COMPLAINTS OF SOB/DENIES CP OR PALPS - Current Medication List Current Medications: Active Medications Acetaminophen (Tylenol -) 650 mg PO Q6H PRN PRN Reason: PAIN Last Admin: 07/20/17 20:34 Dose: 650 mg Albuterol/Ipratropium (Duoneb -) 1 amp NEB RQID [facility] Last Admin: 07/28/17 11:05 Dose: 1 amp Dabigatran (Pradaxa -) 150 mg PO BID [facility] Last Admin: 07/28/17 10:24 Dose: 150 mg Diltiazem HCl (Cardizem Injection -) 10 mg IVPUSH Q4H PRN PRN Reason: TACHYCARDIA Last Admin: 07/20/17 16:45 Dose: 10 mg Diltiazem HCl (Cardizem Cd -) 240 mg PO DAILY [facility] Last Admin: 07/28/17 10:24 Dose: 240 mg Furosemide (Lasix -) 20 mg PO DAILY [facility] Last Admin: 07/28/17 10:24 Dose: 20 mg Guaifenesin (Mucinex -) 600 mg PO BID [facility] Last Admin: 07/28/17 10:24 Dose: 600 mg Multivitamins/Minerals (Theragran-M) 1 each PO DAILY [facility] Last Admin: 07/28/17 10:24 Dose: 1 each Pantoprazole Sodium (Protonix -) 20 mg PO DAILY [facility] Last Admin: 07/28/17 10:24 Dose: 20 mg Prednisone (Deltasone -) 15 mg PO BID [facility] Last Admin: 07/28/17 10:28 Dose: 15 mg Fluticasone/Salmeterol (Advair 100mcg/50mcg -) 1 puff IH RBID [facility] Last Admin: 07/28/17 10:25 Dose: 1 puff - Objective Vital Signs: Vital Signs Temperature 98 F 07/28/17 09:00 Pulse Rate 86 07/28/17 09:00 Respiratory Rate 18 07/28/17 09:00 Blood Pressure 121/60 07/28/17 09:00 O2 Sat by Pulse Oximetry (%) 98 07/27/17 20:29 Constitutional: Yes: Calm Eyes: Yes: EOM Intact HENT: Yes: Normocephalic Neck: Yes: Trachea Midline Cardiovascular: Yes: Pulse Irregular, S1, S2 Respiratory: Yes: Other (CLEAR TO TIDAL BREATHING DOES HAVE MILD EXP WHEEZE TO FORCED EXHALATION MANEUVER) Gastrointestinal: Yes: Normal Bowel Sounds Extremities: Yes: Deformity Edema: No Neurological: Yes: Alert Labs: CBC, BMP 07/28/17 08:25 07/28/17 08:25 - ....Imaging Chest X-ray: Report Reviewed, Image Reviewed EKG: Report Reviewed, Image Reviewed Problem List - Problems (1) Acute on chronic respiratory failure with hypoxemia Code(s): J96.21 - ACUTE AND CHRONIC RESPIRATORY FAILURE WITH HYPOXIA (2) COPD with exacerbation Code(s): J44.1 - CHRONIC OBSTRUCTIVE PULMONARY DISEASE W (ACUTE) EXACERBATION (3) 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 Code(s): J92.0 - PLEURAL PLAQUE WITH PRESENCE OF ASBESTOS (4) Congestive heart failure, diastolic, left, w/preserved LV function, NYHA class 4 Code(s): I50.30 - UNSPECIFIED DIASTOLIC (CONGESTIVE) HEART FAILURE (5) Hypotension Code(s): I95.9 - HYPOTENSION, UNSPECIFIED (6) Rapid atrial fibrillation Code(s): I48.91 - UNSPECIFIED ATRIAL FIBRILLATION Assessment/Plan A/P Acute Hypoxic Respiratory Failure improved LV Diastolic Dysfunction/rapid AF now rate controlled Pulmonary HTN Acute on Chronic Renal Failure improving Atelectasis CAD s/p CABG HTN DM - NIPPV Support as needed - O2 to keep SpO2 >90% - PO as tolerated - DVT prophylaxis - abx/steroids to taper - inhaled bronchodilators - rate control - agree with continuing treatment at SNF rehab Brendan LEWIS MD
[2017-07-28 15:02] VITALS: BP 115/59; PULSE 89; TEMP 97.5
== END 2017-07-28 15:39 | DRG 871 ==
LOC: JER 00:32 → JERBED 02:23 → UNDOADMIN 02:45 → J4W 07:22 → J5S 07-24 14:40 → J4W 07-25 16:30
PROVIDERS: ADMIT Internal Medicine; ATTEND Family Medicine
DX: A41.9 Sepsis, unspecified organism (principal); J18.9 Pneumonia, unspecified organism; J96.21 Acute and chronic respiratory failure with hypoxia; J44.1 Chronic obstructive pulmonary disease with (acute) exacerbation; R04.2 Hemoptysis; J92.0 Pleural plaque with presence of asbestos; Z95.810 Presence of automatic (implantable) cardiac defibrillator; I27.20 Pulmonary hypertension, unspecified; M10.9 Gout, unspecified; Z99.81 Dependence on supplemental oxygen; Z87.891 Personal history of nicotine dependence; I48.0 Paroxysmal atrial fibrillation; Z79.01 Long term (current) use of anticoagulants; I95.9 Hypotension, unspecified; I11.9 Hypertensive heart disease without heart failure; I35.1 Nonrheumatic aortic (valve) insufficiency; I36.1 Nonrheumatic tricuspid (valve) insufficiency
CPT/HCPCS: 36415; 36600; 71045-TC; 71046-TC; 80048; 80053; 82550; 82553; 82803; 82962; 83036; 83605; 83735; 83880; 84100; 84484; 85025; 87040; 87070; 87205; 87804; 87899; 93005; 93010; 94150; 94640; 97116-GP; 97161-GP; 99281-25; 99285-25; G0480

== ENCOUNTER 2017-08-06 19:55 | Inpatient (IN) | payer OTHER, BC ==
--- NOTE | 2017-08-06 19:59 | PDOC ---
History of Present Illness - General Stated Complaint: SOB Time Seen by Provider: 08/06/17 19:59 - History of Present Illness Initial Comments: 08/06/17 20:33 Patient is 87 y.o. male with a PMH pulmonary fibrosis/ILD, COPD (O2 dependent), PNA and who presents to the ED today from home after his defibrillator fired 4 times and he became acutely short of breath. Patient states he was on the toilet in the middle of a bowel movement (Valsalva) when he felt his defibrillator fire. Patient states the defibrillator fired three additional times and he subsequently became acutely short of breath prompting his niece (@ bedside) to call EMS. As per niece, patient left [place] AMA on Monday. He was at [facility] following a hospitalization at our facility (07/19/25 - ) for COPD Exacerbation however as per niece she discharged him AMA on Monday (08/04/17) as family was not satisfied with the level of care being provided. As per EMS when they arrived at patient's domicile patient was tripoding and saturating low 80's. Allergy: Penicillin (documented) however patient given Cefepime on prior admission w/o documented reaction PMD: Dr. Meza Past History - Past Medical History Allergies/Adverse Reactions: Allergies Allergy/AdvReac Type Severity Reaction Status Date / Time Penicillins Allergy Intermediate Rash Verified 08/06/17 21:09 Home Medications: Ambulatory Orders Albuterol Sulfate Inhaler - [Ventolin HFA Inhaler -] 2 inh PO Q4H 10/29/13 Dabigatran Etexilate Mesylate [Pradaxa -] 150 mg PO BID 06/12/17 Acetaminophen [Tylenol .Regular Strength -] 650 mg PO Q6H PRN tablet 07/28/17 Multivit-Min/FA/Lycopen/Lutein [Centrum Silver Tablet] 1 each PO DAILY 08/07/17 Salmeterol/Fluticasone [Advair 100Mcg/50Mcg -] 1 inh PO BID 08/07/17 Tiotropium [place] [Spiriva] 1 inh PO DAILY 08/07/17 Albuterol 2.5/Ipratropium 0.5 [Duoneb -] 1 amp NEB Q4H PRN amp 08/10/17 Diltiazem Cd [Cardizem Cd -] 240 mg PO DAILY cap.cd.24h 08/10/17 Furosemide [Lasix -] 40 mg PO DAILY tablet 08/10/17 Guaifenesin [Mucinex -] 600 mg PO BID tablet.er 08/10/17 Oseltamivir Phosphate [Tamiflu -] 75 mg PO BID capsule 08/10/17 Pantoprazole Sodium [Protonix -] 20 mg PO DAILY tablet.ec 08/10/17 Cardiac Disorders: Yes (PACEMAKER/DEFIBRILLATOR) COPD: Yes HTN: Yes - Surgical History Cardiac Surgery: Yes (PACEMAKER/DEFIBRILLATOR) Cholecystectomy: Yes - Suicide/Smoking/Psychosocial Hx Smoking Status: Yes Smoking History: Never smoked Have you smoked in the past 12 months: No Number of Cigarettes Smoked Daily: 0 Hx Alcohol Use: No Drug/Substance Use Hx: No Substance Use Type: None Hx Substance Use Treatment: No Review of Systems - Review of Systems Able to Perform ROS?: No *Physical Exam - Physical Exam General Appearance: Yes: Nourished, Thin HEENT: positive: EOMI, DUGLAS Neck: positive: Trachea midline, Supple Respiratory/Chest: positive: Labored Respiration, Rapid RR, Rhonchi Cardiovascular: positive: S1, S2, Tachycardia Vascular Pulses: Dorsalis-Pedis (R): 2+, Doralis-Pedis (L): 2+ Gastrointestinal/Abdominal: positive: Normal Bowel Sounds, Soft Extremity: positive: Normal Capillary Refill, Normal Inspection. negative: Coldness, Cyanosis Integumentary: positive: Normal Color, Dry, Warm Neurologic: positive: Fully Oriented, Alert ED Treatment Course - LABORATORY CBC & Chemistry Diagram: 08/10/17 05:35 08/10/17 05:35 Medical Decision Making - Medical Decision Making 08/06/17 22:56 87 y.o. male who presents in acute respiratory distress- likely 2/2 to mixed COPD/CHF picture. Wet read of CXR shows R sided infiltrate note present on prior admission. Influenza A/B negative. Will admit patient for suspected pneumonia as well as respiratory support. *DC/Admit/Observation/Transfer Diagnosis at time of Disposition: Acute exacerbation of chronic obstructive pulmonary disease (COPD) - Discharge Dispostion Disposition: TRANSFER ACUTE CARE/OTHER HOSP Condition at time of disposition: Fair Admit: Yes - Referrals - Patient Instructions - Post Discharge Activity
[2017-08-06 20:24] VITALS: BMI 23.6
[2017-08-06] MEDS ORDERED: ACETAMINOPHEN INJECTION 100 ML IVPB ONE (20:31)
[2017-08-06 20:36] LABS: VENOUS PC02 49.3 mmHg (38-52); VENOUS PH 7.37 (7.32-7.42); VENOUS PO2 33.3 mmHg (28-48)
[2017-08-06 20:43] LABS: BASO % 0.4 % (0-2.0); EOS % 1.1 % (0-4.5); HEMATOCRIT 36.9 % (35.4-49); HEMOGLOBIN 12.1 GM/dL (11.7-16.9); LYMPH % 8.2 % (8-40); MCH 32.2 pg (25.7-33.7); MCHC 32.8 g/dl (32.0-35.9); MEAN CELL VOLUME 97.9 fl (80-96); MEAN PLT VOLUME 7.8 fl (7.5-11.1); MONO % 5.6 % (3.8-10.2); NEUT % 84.7 % (42.8-82.8); PLATELET COUNT 170 K/MM3 (134-434); RBC 3.76 M/mm3 (4.00-5.60); RDW 16.1 % (11.9-15.9)
[2017-08-06] MEDS ORDERED: ALBUTEROL SO4 2.5/IPRATROPIUM 0.5 INH SOL 3 ML VIAL.NEB. NEB ONE ×2 (20:46→21:02)
[2017-08-06 20:57] LABS: INR 1.27 (0.82-1.09); PROTHROMBIN TIME (PATIENT) 14.3 SEC (9.98-11.88)
[2017-08-06] MEDS ORDERED: ACETAMINOPHEN 1000 MG/100 ML VIAL (NON FORMULARY) IVPB ONE (21:05)
[2017-08-06 21:10] LABS: ALBUMIN 2.9 g/dl (3.4-5.0); ANION GAP 8 (8-16); BILIRUBIN,TOTAL 0.9 mg/dL (0.2-1.0); BLOOD UREA NITROGEN 19 mg/dL (7-18); CHLORIDE 103 mmol/L (98-107); CO2 29 mmol/L (21-32); CREATININE 0.9 mg/dL (0.7-1.3); GLUCOSE,RANDOM 126 mg/dL (74-106); SGOT/AST 16 U/L (15-37); SGPT/ALT 29 U/L (12-78); SODIUM 140 mmol/L (136-145); TOT PROT 6.8 g/dl (6.4-8.2)
[2017-08-06 21:13] LABS: ALK PHOS 119 U/L (45-117)
[2017-08-06] MEDS ORDERED: ASPIRIN 81 MG CHEWABLE TABLETS PO ONE (21:20)
[2017-08-06] MEDS ORDERED: ASPIRIN 81 MG CHEWABLE TABLETS ONE (21:22)
[2017-08-06] MEDS ORDERED: SODIUM CHLORIDE 0.9% 500 ML INFUS.BAG IV ONE (21:54)
--- NOTE | 2017-08-06 22:03 | PDOC ---
Attending Attestation - Resident Resident Name: Jeus Salgueroica - ED Attending Attestation I have performed the following: I have examined & evaluated the patient, The case was reviewed & discussed with the resident, I agree w/resident's findings & plan, Exceptions are as noted - HPI HPI: 08/06/17 22:00 87-year-old male brought in by ambulance status post defibrillator activation 4 , she was also febrile, tachycardic and - Physicial Exam PE: 08/06/17 22:03 87-year-old male on BiPAP, resting comfortably at this time. Head normocephalic/atraumatic. eyes yemi womi Neck supple, no JVD. Lungs good breath sounds, scattered wheezing. cvs [id number] Abdomen nontender, nondistended Extremities no tenderness Skin no erythema, novescicles neuro alert psych appropriate - Medical Decision Making 08/06/17 22:05 87-year-old male with past medical history of A. fib, permanent pacemaker/AICD, pulmonary fibrosis, COPD, home O2 dependent, LV dysfunction , most recently discharged from this hospital after being treated for pneumonia Chest x-ray suspicious for new infiltrates. Influenza negative. Patient will be admitted to hospitalist
[2017-08-06] MEDS ORDERED: VANCOMYCIN 1,000 MG in DEXTROSE 5%-WATER - 250 ML IVPB ONE (22:12)
[2017-08-06] MEDS ORDERED: CEFEPIME HCL 2 GM VIAL (RESTRICTED TO ID) IVPB ONE (22:13)
--- NOTE | 2017-08-06 22:17 | PN ---
Teaching Attending Note Name of Resident: Santiago Campbell ATTENDING PHYSICIAN STATEMENT I saw and evaluated the patient. I reviewed the resident's note and discussed the case with the resident. I agree with the resident's findings and plan as documented. 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 He was in Rehab, but signed out early. He was BIBA for ICD shock X4. States he felt short of breath earlier today. Found to have respiratory distress upon arrival to ED and placed on BIPAP. States he was on the toilet when he felt the shocks. Denies any chest pain or pressure. OBJECTIVE: Physical: VS: Vital Signs Period Temp Pulse Resp BP Sys/Starkey Pulse Ox Last 24 Hr 100.9 F-100.9 F 86-110 25-31 108-133/57-59 99-100 GEN: NAD, resting in bed, AA0X3 HEENT: NCAT, PERRL, throat without erythema or exudates CARD: RRR S1, S2 RESP: Coarse expiratory sounds, mild expiratory wheezing ABD: BSx4, NTD to palpation EXT: - C/C/E CBCD WBC 7.0 K/mm3 (4.0-10.0) D 08/06/17 20:15 RBC 3.76 M/mm3 (4.00-5.60) L 08/06/17 20:15 Hgb 12.1 GM/dL (11.7-16.9) 08/06/17 20:15 Hct 36.9 % (35.4-49) 08/06/17 20:15 MCV 97.9 fl (80-96) H 08/06/17 20:15 MCHC 32.8 g/dl (32.0-35.9) 08/06/17 20:15 RDW 16.1 % (11.9-15.9) H 08/06/17 20:15 Plt Count 170 K/MM3 (134-434) 08/06/17 20:15 MPV 7.8 fl (7.5-11.1) D 08/06/17 20:15 CMP Sodium 140 mmol/L (136-145) 08/06/17 20:15 Potassium 4.0 mmol/L (3.5-5.1) 08/06/17 20:15 Chloride 103 mmol/L (98-107) 08/06/17 20:15 Carbon Dioxide 29 mmol/L (21-32) 08/06/17 20:15 Anion Gap 8 (8-16) 08/06/17 20:15 BUN 19 mg/dL (7-18) H D 08/06/17 20:15 Creatinine 0.9 mg/dL (0.7-1.3) 08/06/17 20:15 Creat Clearance w eGFR > 60 (>60) 08/06/17 20:15 Random Glucose 126 mg/dL (74-106) H 08/06/17 20:15 Calcium 8.0 mg/dL (8.5-10.1) L 08/06/17 20:15 Total Bilirubin 0.9 mg/dL (0.2-1.0) 08/06/17 20:15 AST 16 U/L (15-37) D 08/06/17 20:15 ALT 29 U/L (12-78) 08/06/17 20:15 Alkaline Phosphatase 119 U/L (45-117) H D 08/06/17 20:15 Total Protein 6.8 g/dl (6.4-8.2) 08/06/17 20:15 Albumin 2.9 g/dl (3.4-5.0) L 08/06/17 20:15 CARDIAC ENZYMES Creatine Kinase 27 IU/L (39-308) L 08/06/17 20:15 Troponin I 0.08 ng/ml (0.00-0.05) H D 08/06/17 20:15 CXR: Bilateral infilterates EKG: Stach 119 1st Deg AV block w PVCs. Ambulatory Orders Albuterol Sulfate Inhaler - [Ventolin HFA Inhaler -] 2 inh PO Q4H 10/29/13 Dabigatran Etexilate Mesylate [Pradaxa -] 150 mg PO BID 06/12/17 Multivit-Min/FA/Lycopen/Lutein [Centrum Silver Tablet] 1 each PO DAILY 06/12/17 Salmeterol/Fluticasone [Advair 100Mcg/50Mcg -] 1 inh PO BID PRN 06/12/17 Meclizine HCl [Antivert -] 12.5 mg PO BID PRN 07/19/17 Acetaminophen [Tylenol .Regular Strength -] 650 mg PO Q6H PRN tablet 07/28/17 Albuterol 2.5/Ipratropium 0.5 [Duoneb -] 1 amp NEB RQID amp 07/28/17 Diltiazem Cd [Cardizem Cd -] 240 mg PO DAILY cap.cd.24h 07/28/17 Furosemide [Lasix -] 40 mg PO DAILY #30 tablet 07/28/17 Guaifenesin [Mucinex -] 600 mg PO BID tablet.er 07/28/17 Pantoprazole Sodium [Protonix -] 20 mg PO DAILY tablet.ec 07/28/17 Prednisone [Deltasone -] 15 mg PO BID tablet 07/28/17 Echo 06/18- EF 75 %, LVH, impaired Lv relaxation ASSESSMENT AND PLAN: 87 M with pmhx. 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 htn, P afib, vent. arrythmia s/p ICD, gout, congential R. side malformation who BIBA for ICD shocks , found to be in respiratory failure and to have a pneumonia 1.) Acute Respiratory Failure - ABG - C/W BIPAP 2.) Pneumonia/HCAP - Vanco/Cefepime - ID consult -Urine Ags - Would start empiric Niurka-Flu - Hernandez Cx - Repeat LA - Tylenol prn Fever 3.) Afib - C/W Pradexa - Cardizem 4.) ICD Fire - OF NOT: PT. MISSED his BATTERY CHANGE appts. NEEDS ICD Battery changed - Trend Trop/EKG- Ro ischemia - Monitor lyted Keep Mg >2.0, K4.0 - Last Echo as above 06/18 - Needs ICD evaluated 5.) Acute Exacerbation of COPD - Duonebs Atc/PRN - Solu-Medrol - C/W BIPAP 6.) Diastolic CHF - C/W Lasix 7.) Dvt Ppx - On Pradexa Place in [employer] [facility]-Tele
[2017-08-06] MEDS ORDERED: CEFEPIME 1 GM/100 ML BAG IVPB ONE (22:24)
[2017-08-06] MEDS ORDERED: CEFEPIME 1 GM/100 ML BAG PRE-DOCKED IVPB ONE (22:30)
[2017-08-06 22:58] LABS: ARTERIAL BLD GAS O2 SATURATION 98.3 % (90-98.9); ARTERIAL BLOOD GAS BASE EXCESS 3.1 meq/l (-2-2); ARTERIAL BLOOD GAS PCO2 39.1 mmHg (35-45); ARTERIAL BLOOD GAS pH 7.45 (7.35-7.45)
[2017-08-06 23:01] LABS: ALLENS TEST POSITIVE
--- NOTE | 2017-08-06 23:32 | HP ---
CHIEF COMPLAINT: ICD shocked 4x PCP: HISTORY OF PRESENT ILLNESS: 87 y/o M with PMH pulmonary fibrosis/ILD, afib, diastolic CHF, COPD (02 dependent; uses 2L at home as per niece), recent dx 07/19/17 for PNA (nebs, Cefepime-HCAP, prednisone 30mg PO BID taper), who presents to the ED after c/o ICD shocking him 4x today. As per niece, pt was initially residing at [facility]. While he was there, he had developed a productive cough with brown sputum, so he came to the ED at [facility] where he was treated for PNA. He was released from [facility] on 07/28/17, and taken to [facility] for rehab, however left AMA. Pt then came home, and was living independently with help from niece. Today, at 7PM, he went to the bathroom and immediately felt SOB, dizzy and lightheaded while having a BM. His ICD then shocked him 4x, so he called out for help. His niece then called 911 and he was brought to the ED via ambulance. Pt endorses palpitations during the episode, and productive cough of white sputum (without blood), but denies syncopal episode, ZUNIGA, fever, chills, chest pain, or changes in urinary or bowel function. When the pt arrived at the ED, he was noted to be extremely SOB, so he was started on BiPAP. 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, help with snow removal Smoking: quit smoking 50 yrs ago; however, prior smoked 20 yrs 1-1.5ppd Alcohol: socially Drugs: denies Family History: mother- DM, brothers- DM, 1 passed from prostate CA mets to bone Allergies Penicillins Allergy (Intermediate, Verified 08/06/17 21:09) Rash HOME MEDICATIONS: Home Medications Medication Instructions Recorded Albuterol Sulfate Inhaler - 2 inh PO Q4H 10/29/13 [Ventolin HFA Inhaler -] Dabigatran Etexilate Mesylate 150 mg PO BID 06/12/17 [Pradaxa -] Multivit-Min/FA/Lycopen/Lutein 1 each PO DAILY 06/12/17 [Centrum Silver Tablet] Salmeterol/Fluticasone [Advair 1 inh PO BID PRN 06/12/17 100Mcg/50Mcg -] Meclizine HCl [Antivert -] 12.5 mg PO BID PRN 07/19/17 Acetaminophen [Tylenol .Regular 650 mg PO Q6H PRN tablet 07/28/17 Strength -] Albuterol 2.5/Ipratropium 0.5 1 amp NEB RQID amp 07/28/17 [Duoneb -] Diltiazem Cd [Cardizem Cd -] 240 mg PO DAILY cap.cd.24h 07/28/17 Furosemide [Lasix -] 40 mg PO DAILY #30 tablet 07/28/17 Guaifenesin [Mucinex -] 600 mg PO BID tablet.er 07/28/17 Pantoprazole Sodium [Protonix -] 20 mg PO DAILY tablet.ec 07/28/17 Prednisone [Deltasone -] 15 mg PO BID tablet 07/28/17 REVIEW OF SYSTEMS CONSTITUTIONAL: Absent: fever, chills, diaphoresis, generalized weakness, malaise, loss of appetite, weight change HEENT: Absent: rhinorrhea, nasal congestion, throat pain, throat swelling, difficulty swallowing, mouth swelling, ear pain, eye pain, visual changes CARDIOVASCULAR: +palpitations, irregular HR, lightheadedness Absent: chest pain, syncope, peripheral edema RESPIRATORY: +SOB Absent: cough, dyspnea with exertion, orthopnea, wheezing, stridor, hemoptysis GASTROINTESTINAL: Absent: abdominal pain, abdominal distension, nausea, vomiting, diarrhea, constipation, melena, hematochezia GENITOURINARY: Absent: dysuria, frequency, urgency, hesitancy, hematuria, flank pain, genital pain MUSCULOSKELETAL: Absent: myalgia, arthralgia, joint swelling, back pain, neck pain SKIN: Absent: rash, itching, pallor HEMATOLOGIC/IMMUNOLOGIC: Absent: easy bleeding, easy bruising, lymphadenopathy, frequent infections ENDOCRINE: Absent: unexplained weight gain, unexplained weight loss, heat intolerance, cold intolerance NEUROLOGIC: Absent: headache, focal weakness or paresthesias, dizziness, unsteady gait, seizure, mental status changes, bladder or bowel incontinence PSYCHIATRIC: Absent: anxiety, depression, suicidal or homicidal ideation, hallucinations. PHYSICAL EXAMINATION Vital Signs 08/06/17 20:00 Temperature 100.9 F H Pulse Rate 110 H Pulse Rate [ Apical] Respiratory 30 H Rate Blood Pressure 133/59 Blood Pressure [Right Arm] O2 Sat by Pulse Oximetry (%) 08/06/17 21:19 Temperature Pulse Rate Pulse Rate [ 86 Apical] Respiratory 25 H Rate Blood Pressure Blood Pressure 108/57 [Right Arm] O2 Sat by Pulse 99 Oximetry (%) GENERAL: Resting comfortably. Awake, alert, and fully oriented, in no acute distress. on BiPAP HEAD: Normal with no signs of trauma. EYES: Pupils equal, round and reactive to light, extraocular movements intact, sclera anicteric, conjunctiva clear. EARS, NOSE, THROAT: Ears normal, nares patent, oropharynx clear without exudates. Moist mucous membranes. NECK: Normal range of motion, supple without lymphadenopathy. No JVD LUNGS: diffuse wheezes appreciated b/l. no rhonchi or crackles heard. without accessory m. usage. HEART: irregular rate and rhythm, normal S1 and S2 without murmur, rub or gallop. ABDOMEN: Soft, nontender, not distended, normoactive bowel sounds, no guarding, no rebound, no masses. UPPER EXTREMITIES: 2+ radial pulses, ecchymoses on dorsum of hands b/l LOWER EXTREMITIES: 2+ posterior tibial pulses, warm, well-perfused. No calf tenderness. No peripheral edema. NEUROLOGICAL: Cranial nerves II-XII intact. Laboratory Results 08/06/17 08/06/17 08/06/17 20:15 20:15 20:15 WBC 7.0 D Hgb 12.1 Hct 36.9 Plt Count 170 Neutrophils % 84.7 H ABG pH ABG pCO2 at Pt Temp ABG pO2 at Pt Temp ABG HCO3 ABG O2 Content ABG Base Excess Sodium 140 Potassium 4.0 Chloride 103 Carbon Dioxide 29 BUN 19 H D Creatinine 0.9 Random Glucose 126 H Lactic Acid 2.5 H* Calcium 8.0 L Alkaline Phosphatase 119 H D Creatine Kinase 27 L Troponin I 0.08 H D Albumin 2.9 L 08/06/17 22:48 Hct ABG pH 7.45 ABG pCO2 at Pt Temp 39.1 D ABG pO2 at Pt Temp 101.0 H D ABG HCO3 26.8 H ABG O2 Content 13.5 L ABG Base Excess 3.1 H Sodium Albumin Microbiology 08/06/17 20:15 Nasopharyngeal Swab Influenza Types A,B Antigen (NAHED) - Final 08/06/17 20:15 Nasopharyngeal Swab - Final Blood cx - pending Radio CXR: possible new infiltrates noted on R, official report pending ECHO -last ECHO done in 06/18 : ~75% EF ASSESSMENT/PLAN: 87 y/o M with PMH pulmonary fibrosis/ILD, afib, diastolic CHF, COPD (02 dependent; uses 2L at home as per niece), recent dx 07/19/17 for PNA (nebs, Cefepime-HCAP, prednisone 30mg PO BID taper), who presents to the ED after c/o ICD shocking him 4x today. Pt admitted to telemetry for acute respiratory failure possibly 2/2 PNA. #Acute respiratory failure possibly 2/2 PNA -Pt SOB on presentation to ED, needing BiPAP -Continue on BiPAP -Initial admission VBG: pH, CO2 WNL -F/u next ABG (6AM) #Sepsis 2/2 HCAP -Pt hx recent hospital admission, with possible new R infiltrate -febrile 100.9F, tachy 110HR, elevated initial lactate 2.5 (2nd lactate WNL) -Continue vanco 1g IVPB qd, Cefepime 1g q8h - pseudomonas coverage -Mucinex 600mg BID -Flu (-) however possible still can be +, started on Tamiflu 75mg PO BID -F/u Legionella, strep pneumo Ag -F/u urine cx, blood cx -ID consult- Dr. Jorge -Tylenol 500mg q4h PRN for fever #afib -Pt on a/c pradaxa 150mg PO BID -rate control with cardiazem 240 mg PO daily -Cardio consult- Dr. Paula #diastolic CHF -last ECHO 06/18; showed 75% EF -on lasix 40mg PO daily #Acute COPD exacerbation possibly 2/2 PNA -Continue ventolin PRN -Duonebs q4h PRN -Advair 1 puff IH BID -Solumedrol 125mg x 1 stat -Will continue on solumedrol 60mg IVP BID -BiPAP as needed -Pulm consult- Dr. Keith #Elevated Troponin most likely 2/2 demand ischemia -Trop 0.08 -F/u trops -F/u Mg, K. Keep Mg >2, K~4 #PPX DVT: On pradaxa 150 mg PO BID GI: Protonix 20mg PO daily #F/E/N -No fluids at this time, as pt has CHF -Monitor electrolytes, especially Mg, K -Regular diet #Dispo telemetry for cont'd monitoring Visit type - Emergency Visit Emergency Visit: Yes ED Registration Date: 08/06/17 Care time: The patient presented to the Emergency Department on the above date and was hospitalized for further evaluation of their emergent condition. - New Patient This patient is new to me today: Yes Date on this admission: 08/07/17 - Critical Care Critical Care patient: No
[2017-08-06] MEDS ORDERED: ACETAMINOPHEN 500 MG TABLET (FP) PO PRN (23:44)
[2017-08-07] MEDS ORDERED: ALBUTEROL SO4 18 GM HFA INHALER IH PRN
[2017-08-07] MEDS ORDERED: VANCOMYCIN 1 GRAM (PRE-DOCKED) 1,000 MG/250 ML BAG IVPB ONE (00:01)
[2017-08-07] MEDS ORDERED: methylPREDNISolone NA SUCC 125 MG/2 ML VIAL IVPUSH ONE (00:04)
[2017-08-07] MEDS ORDERED: methylPREDNISolone NA SUCC 125 MG/2 ML VIAL ONE (00:49)
[2017-08-07] MEDS ORDERED: OSELTAMIVIR PHOSPHATE 75 MG CAPSULE ONE (00:49)
[2017-08-07] MEDS: guaiFENesin 600 MG TABLET.ER (FP) PO SCH ×3 (02:33→23:18)
[2017-08-07] MEDS: DABIGATRAN ETEXILATE MESYLATE 150 MG CAPSULE PO SCH ×3 (02:33→23:18)
[2017-08-07 02:37] LABS: URINE APPEARANCE CLEAR; URINE BILIRUBIN NEGATIVE (NEGATIVE); URINE BLOOD NEGATIVE (NEGATIVE); URINE COLOR DKYELLOW; URINE GLUCOSE (UA) NEGATIVE (NEGATIVE); URINE KETONE NEGATIVE (NEGATIVE); URINE LEUK ESTERASE NEGATIVE (NEGATIVE); URINE NITRITE NEGATIVE (NEGATIVE); URINE UROBILINOGEN 4.0 E.U/dl mg/dL (0.2-1.0)
[2017-08-07 02:54] LABS: URINE PROTEIN 1+ (NEGATIVE)
[2017-08-07 02:59] LABS: EPI CELLS RARE /HPF (FEW); URINE HYALINE CAST 2 /lpf; URINE MUCUS FEW
[2017-08-07] MEDS: OSELTAMIVIR PHOSPHATE 75 MG CAPSULE PO SCH ×3 (03:09→23:17)
[2017-08-07 06:22] LABS: ARTERIAL BLOOD GAS PCO2 43.1 mmHg (35-45); ARTERIAL BLOOD GAS PO2 57.8 mmHg (68-100); ARTERIAL BLOOD GAS pH 7.42 (7.35-7.45)
[2017-08-07 06:24] LABS: ALLENS TEST POSITIVE
[2017-08-07] MEDS ORDERED: CEFEPIME HCL 1 GM VIAL (RESTRICTED TO ID) IVPB SCH ×2 (07:00→18:00)
[2017-08-07 08:13] LABS: ANION GAP 9 (8-16); BLOOD UREA NITROGEN 17 mg/dL (7-18); CALCIUM 7.9 mg/dL (8.5-10.1); CHLORIDE 105 mmol/L (98-107); CO2 26 mmol/L (21-32); CREATININE 0.6 mg/dL (0.7-1.3); GLUCOSE,RANDOM 113 mg/dL (74-106); POTASSIUM 3.7 mmol/L (3.5-5.1); SODIUM 140 mmol/L (136-145)
[2017-08-07 08:24] LABS: BASO % 0.4 % (0-2.0); EOS % 0.3 % (0-4.5); HEMATOCRIT 32.8 % (35.4-49); HEMOGLOBIN 10.7 GM/dL (11.7-16.9); MCH 31.9 pg (25.7-33.7); MCHC 32.6 g/dl (32.0-35.9); MEAN CELL VOLUME 97.7 fl (80-96); MEAN PLT VOLUME 7.6 fl (7.5-11.1); MONO % 1.5 % (3.8-10.2); NEUT % 94.8 % (42.8-82.8); PLATELET COUNT 119 K/MM3 (134-434); RBC 3.36 M/mm3 (4.00-5.60); RDW 15.8 % (11.9-15.9); WHITE BLOOD COUNT 6.3 K/mm3 (4.0-10.0)
--- NOTE | 2017-08-07 09:55 | PN ---
Progress Note, Physician Chief Complaint: patient in ER comfortable on bipap no cp no sob - Current Medication List Current Medications: Active Medications Albuterol Sulfate (Ventolin Hfa Inhaler -) 2 puff IH Q4H PRN PRN Reason: SHORT OF BREATH/WHEEZING Albuterol/Ipratropium (Duoneb -) 1 amp NEB Q4H PRN PRN Reason: SHORTNESS OF BREATH Dabigatran (Pradaxa -) 150 mg PO BID [facility] Last Admin: 08/07/17 02:33 Dose: 150 mg Diltiazem HCl (Cardizem Cd -) 240 mg PO DAILY [facility] Furosemide (Lasix -) 40 mg PO DAILY [facility] Guaifenesin (Mucinex -) 600 mg PO BID [facility] Last Admin: 08/07/17 02:33 Dose: 600 mg Vancomycin HCl 1,000 mg/ (Dextrose) 250 mls @ 250 mls/hr IVPB DAILY HEMAL PRN Reason: Protocol Vancomycin HCl 1,000 mg/ (Dextrose) 250 mls @ 166.667 mls/hr IVPB ONCE ONE Stop: 08/07/17 11:29 Methylprednisolone Sodium Succinate (Solu-Medrol -) 60 mg IVPUSH BID [facility] Oseltamivir Phosphate (Tamiflu -) 75 mg PO BID [facility] Stop: 08/11/17 10:01 Last Admin: 08/07/17 03:09 Dose: 75 mg Pantoprazole Sodium (Protonix -) 20 mg PO DAILY [facility] Fluticasone/Salmeterol (Advair 100mcg/50mcg -) 1 puff IH BID [facility] - Objective Vital Signs: Vital Signs Temperature 98.5 F 08/07/17 08:07 Pulse Rate 88 08/07/17 08:07 Respiratory Rate 20 08/07/17 08:07 Blood Pressure 124/76 08/07/17 08:07 O2 Sat by Pulse Oximetry (%) 100 08/07/17 08:55 Constitutional: Yes: Calm Cardiovascular: Yes: Regular Rate and Rhythm, S1, S2 Respiratory: Yes: CTA Bilaterally, Diminished (at bases), On BiPap Gastrointestinal: Yes: Normal Bowel Sounds, Soft Neurological: Yes: Alert, Oriented Labs: CBC, BMP 08/07/17 07:24 08/07/17 07:24 INR, PTT INR 1.27 (0.82-1.09) H 08/06/17 20:15 Problem List - Problems (1) Afib Assessment/Plan: pradaxa cardizem Code(s): I48.91 - UNSPECIFIED ATRIAL FIBRILLATION Qualifiers: Atrial fibrillation type: unspecified Qualified Code(s): I48.91 - Unspecified atrial fibrillation (2) COPD (chronic obstructive pulmonary disease) Assessment/Plan: bronchodilators steroids mucinex Code(s): J44.9 - CHRONIC OBSTRUCTIVE PULMONARY DISEASE, UNSPECIFIED Qualifiers: COPD type: unspecified COPD Qualified Code(s): J44.9 - Chronic obstructive pulmonary disease, unspecified (3) PNA (pneumonia) Assessment/Plan: ID omar got cefepime and vanco and started on tamiflu urinary legionalla pending Code(s): J18.9 - PNEUMONIA, UNSPECIFIED ORGANISM Qualifiers: Pneumonia type: due to unspecified organism Laterality: bilateral Lung location: lower lobe of lung Qualified Code(s): J18.9 - Pneumonia, unspecified organism
[2017-08-07] MEDS ORDERED: CEFEPIME HCL/D5W 1 GM/50 ML BAG IVPB ONE (10:00)
[2017-08-07] MEDS ORDERED: VANCOMYCIN 1,000 MG in DEXTROSE 5%-WATER - 250 ML IVPB ONE (10:00)
[2017-08-07] MEDS ORDERED: VANCOMYCIN 1,000 MG in DEXTROSE 5%-WATER - 250 ML IVPB SCH (10:00)
[2017-08-07] MEDS: FUROSEMIDE 40 MG TABLET (FP) PO SCH (11:00)
[2017-08-07] MEDS: methylPREDNISolone NA SUCC 125 MG/2 ML VIAL IVPUSH SCH ×2 (11:00→23:18)
[2017-08-07] MEDS: PANTOPRAZOLE 20 MG TABLET (FP) PO SCH (11:00)
[2017-08-07] MEDS: FLUTICASONE/SALMETEROL 100 MCG/50 MCG DISKUS IH SCH ×2 (11:16→23:24)
--- NOTE | 2017-08-07 11:17 | CON.ID ---
Consult Consult Specialty:: infectious disease Referred by:: raymond Reason for Consultation:: possible pneumonia - History of Present Illness Chief Complaint: defibrillator fired at home, SOB History of Present Illness: 87 year old man, PMH pulmonary fibrosis, COPD on home oxygen, CHF, just left [facility] on Monday AMA he has been feeling weak at home reports defibrillar fired at home four times no fevers SOB at home with cough in ED was noted to be extremely SOB and placed on BIPAP now alert and resting comfortably on bipap - History Source History Provided By: Patient, Medical Record Limitations to Obtaining History: Clinical Condition - Past Medical History Cardio/Vascular: Yes: AFIB, HTN, Other (s/p ppm/aicd. heart failure) Pulmonary: Yes: COPD (oxygen dependent), O2 Dependent, Pulmonary Fibrosis, Other (asbestosis with plaques) Infectious Disease: Yes: Other (pneumonia) - Past Surgical History Past Surgical History: Yes: Permanent Pacemaker - Alcohol/Substance Use Hx Alcohol Use: No - Smoking History Smoking history: Never smoked Have you smoked in the past 12 months: No Aproximately how many cigarettes per day: 0 If you are a former smoker, when did you quit?: 1959 - Social History Usual Living Arrangement: Alone ADL: Independent Place of : [facility] History of Recent Travel: No Home Medications - Allergies Allergies/Adverse Reactions: Allergies Allergy/AdvReac Type Severity Reaction Status Date / Time Penicillins Allergy Intermediate Rash Verified 08/06/17 21:09 - Home Medications Home Medications: Ambulatory Orders Albuterol Sulfate Inhaler - [Ventolin HFA Inhaler -] 2 inh PO Q4H 10/29/13 Dabigatran Etexilate Mesylate [Pradaxa -] 150 mg PO BID 06/12/17 Multivit-Min/FA/Lycopen/Lutein [Centrum Silver Tablet] 1 each PO DAILY 06/12/17 Salmeterol/Fluticasone [Advair 100Mcg/50Mcg -] 1 inh PO BID PRN 06/12/17 Meclizine HCl [Antivert -] 12.5 mg PO BID PRN 07/19/17 Acetaminophen [Tylenol .Regular Strength -] 650 mg PO Q6H PRN tablet 07/28/17 Albuterol 2.5/Ipratropium 0.5 [Duoneb -] 1 amp NEB RQID amp 07/28/17 Diltiazem Cd [Cardizem Cd -] 240 mg PO DAILY cap.cd.24h 07/28/17 Furosemide [Lasix -] 40 mg PO DAILY #30 tablet 07/28/17 Guaifenesin [Mucinex -] 600 mg PO BID tablet.er 07/28/17 Pantoprazole Sodium [Protonix -] 20 mg PO DAILY tablet.ec 07/28/17 Prednisone [Deltasone -] 15 mg PO BID tablet 07/28/17 Family Disease History - Family Disease History Family History: Denies Review of Systems - Review of Systems Constitutional: reports: No Symptoms. denies: Chills, Diaphoresis, Fever, Lethargy, Loss of Appetite, Night Sweats Eyes: reports: No Symptoms HENT: reports: No Symptoms. denies: Difficult Swallowing Neck: reports: No Symptoms Cardiovascular: reports: Palpitations, Shortness of Breath. denies: Chest Pain , Edema Respiratory: reports: Cough Gastrointestinal: reports: No Symptoms. denies: Abdominal Pain, Constipation, Diarrhea, Vomiting Genitourinary: reports: No Symptoms Musculoskeletal: reports: No Symptoms Integumentary: reports: No Symptoms Physical Exam Vital Signs: Vital Signs Temperature 98.5 F 08/07/17 08:07 Pulse Rate 88 08/07/17 08:07 Respiratory Rate 20 08/07/17 08:07 Blood Pressure 124/76 08/07/17 08:07 O2 Sat by Pulse Oximetry (%) 100 08/07/17 08:55 Constitutional: Yes: No Distress, Calm Eyes: Yes: Conjunctiva Clear HENT: Yes: Atraumatic, Normocephalic Neck: Yes: Supple, Trachea Midline Cardiovascular: Yes: Regular Rate and Rhythm Respiratory: Yes: Regular, Other (crackles at bases) Gastrointestinal: Yes: Normal Bowel Sounds, Soft ...Rectal Exam: Yes: Deferred Renal/: No: CVA Tenderness - Left, CVA Tenderness - Right Extremities: Yes: WNL Edema: No Psychiatric: Yes: Alert, Oriented Labs: CBC, BMP 08/07/17 07:24 08/07/17 07:24 Imaging - Results Chest X-ray: Report Reviewed, Image Reviewed Problem List - Problems (1) Defibrillator discharge Code(s): Z45.02 - ENCNTR FOR ADJUST AND MGMT OF AUTOMATIC IMPLNTBL CARD DEFIB (2) PNA (pneumonia) Code(s): J18.9 - PNEUMONIA, UNSPECIFIED ORGANISM Qualifiers: Pneumonia type: due to unspecified organism Laterality: bilateral Lung location: lower lobe of lung Qualified Code(s): J18.9 - Pneumonia, unspecified organism (3) Acute on chronic respiratory failure with hypoxemia Code(s): J96.21 - ACUTE AND CHRONIC RESPIRATORY FAILURE WITH HYPOXIA (4) Interstitial lung disease Code(s): J84.9 - INTERSTITIAL PULMONARY DISEASE, UNSPECIFIED (5) COPD with exacerbation Code(s): J44.1 - CHRONIC OBSTRUCTIVE PULMONARY DISEASE W (ACUTE) EXACERBATION (6) Penicillin allergy Code(s): Z88.0 - ALLERGY STATUS TO PENICILLIN Assessment/Plan cannot r/o pneumonia underlying ILD and asbestosis continue vanco/cefepime continue tamiflu (recently at SNF) will get procalciton, BNP f/u cultures cardiology to see for defibrillator discharge pulmonary eval pending
--- NOTE | 2017-08-07 12:47 | EKG ---
Test Reason : Blood Pressure : / mmHG Vent. Rate : 119 BPM Atrial Rate : 119 BPM P-R Int : 236 ms QRS Dur : 082 ms QT Int : 310 ms P-R-T Axes : 064 -39 041 degrees QTc Int : 436 ms ATRIAL PACED RHYTHM,DEMAND OTHERWISE BURST OF ATRIAL ARRHYTHMIA LEFT AXIS DEVIATION NONSPECIFIC ST ABNORMALITY ABNORMAL ECG WHEN COMPARED WITH ECG OF 25-JUL-2017 13:44, POSSIBLE RHYTHM CHANGE PACING SPIKE IS SEEN CLINICAL CORRELATION IS RECOMMENDED Confirmed by HALINA MABRY, SWAPNA ([id number]) on 08/07/2017 12:46:49 PM Referred By: Confirmed By:SWAPNA MEADE MD
--- NOTE | 2017-08-07 16:00 | PN ---
Progress Note (short form) - Note Progress Note: PULMONARY CONSULTATION DICTATED 08/07/17 IMP ACUTE ON CHRONIC HYPOXEMIC RESPIRATORY FAILURE COPD EXACERBATION INTERSTITIAL LUNG DISEASE/PULMONARY FIBROSIS ? 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 Code(s): J92.0 - PLEURAL PLAQUE WITH PRESENCE OF ASBESTOS (6) Cerebrovascular disease Code(s): I67.9 - CEREBROVASCULAR DISEASE, UNSPECIFIED (7) Interstitial lung disease Code(s): J84.9 - INTERSTITIAL PULMONARY DISEASE, UNSPECIFIED (8) PNA (pneumonia) Code(s): J18.9 - PNEUMONIA, UNSPECIFIED ORGANISM Qualifiers: Pneumonia type: due to unspecified organism Laterality: bilateral Lung location: lower lobe of lung Qualified Code(s): J18.9 - Pneumonia, unspecified organism (9) Paroxysmal atrial fibrillation Code(s): I48.0 - PAROXYSMAL ATRIAL FIBRILLATION (10) Pulmonary hypertension Code(s): I27.20 - PULMONARY HYPERTENSION, UNSPECIFIED (12) Lactate blood increase Code(s): R79.89 - OTHER SPECIFIED ABNORMAL FINDINGS OF BLOOD CHEMISTRY
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
--- NOTE | 2017-08-07 20:08 | CONS ---
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 Patient was recently hospitalized at [facility] secondary to pneumonia. He was at [place] following most recent hospitalization from July 19 to July 28. Apparently, he was discharged AMA on Friday, August 04, 2017. EMS was called secondary to patient having increasing shortness of breath. He was noted at the time to have O2 saturations in the 80s and presented to the emergency room above. In the emergency room, his defibrillator fired 14 times, and he became acutely short of breath. Patient was also noted to have a low-grade temperature, 100.9. He was evaluated by Infectious Disease and placed on broad-spectrum antibiotics. Chest x-ray revealed possible new right lower lobe infiltrate. 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 CURRENT MEDICATIONS: Include Solu-Medrol, Advair, Maxipime, vancomycin, Pradaxa, albuterol, DuoNeb, Cardizem, Mucinex, Lasix, Tamiflu, and Protonix. REVIEW OF SYSTEMS: Unable to obtain at this time. Patient is currently on BiPAP. PHYSICAL EXAMINATION: General: The patient is an elderly white male, well developed, thin, awake, alert, mildly dyspneic on BiPAP. Vital Signs: He is currently afebrile, T-max 100.9; respiratory rate is 20; O2 saturation is 100% on BiPAP. HEENT: Normocephalic, atraumatic. Neck: Supple. Heart: Irregular. S1, S2. Chest: Scattered bilateral rhonchi. Abdomen: Soft. Bowel sounds are positive. Extremities: No signs of edema. LABORATORY DATA: WBC is 6.3, hemoglobin 10.7, hematocrit 32.8 with a platelet count of 119,000. INR is 1.27. Initial blood gas showed pH of 7.45, pCO2 of 39, a pO2 of 101, a bicarbonate of 26, and a saturation of 98; that was on BiPAP, IPAP of 10, EPAP of 5, and a FiO2 of 30%. Repeat today 7.42, pCO2 of 43, a pO2 of 57, a bicarbonate of 27, and a saturation of 88; that was on IPAP of 10, EPAP of 5, rate of 12, and FiO2 of 30%. BUN is 17, creatinine 0.6. Lactate level is 2.5. Chest x-ray of chronic interstitial change bilaterally, possible mild superimposed venous congestion, possible right lower lobe infiltrate. IMPRESSION: [id number] hypoxemic respiratory failure secondary to: 1. Likely chronic obstructive pulmonary disease exacerbation. 2. Advanced interstitial lung disease, pulmonary fibrosis. 3. pneumonia. 4. Hypertension. 5. Paroxysmal atrial fibrillation. 6. Asbestos pleural disease. 7. Left ventricular dysfunction. 8. Elevated lactate level. PLAN: Broad-spectrum antibiotics Infectious Disease, supplemental O2, open-rate BiPAP. Followup arterial blood gases. Followup chest x-rays. Obtain cultures. Monitor strict I's and O's. Also, trend lactate level. GUSTABO ZAMORANO M.D. [id number]
[2017-08-08] MEDS: CEFEPIME HCL/D5W 1 GM/50 ML BAG IVPB SCH ×4 (00:07→18:10)
[2017-08-08] MEDS: FLUTICASONE/SALMETEROL 100 MCG/50 MCG DISKUS IH SCH ×3 (00:08→22:25)
[2017-08-08 07:33] LABS: ANION GAP 8 (8-16); BLOOD UREA NITROGEN 23 mg/dL (7-18); CALCIUM 7.8 mg/dL (8.5-10.1); CHLORIDE 101 mmol/L (98-107); CO2 30 mmol/L (21-32); CREATININE 0.6 mg/dL (0.7-1.3); GLUCOSE,RANDOM 164 mg/dL (74-106); POTASSIUM 3.7 mmol/L (3.5-5.1); SODIUM 139 mmol/L (136-145)
[2017-08-08 07:49] LABS: BASO % 0.3 % (0-2.0); HEMATOCRIT 34.8 % (35.4-49); HEMOGLOBIN 11.3 GM/dL (11.7-16.9); LYMPH % 5.1 % (8-40); MCH 31.7 pg (25.7-33.7); MCHC 32.5 g/dl (32.0-35.9); MEAN CELL VOLUME 97.5 fl (80-96); MEAN PLT VOLUME 7.6 fl (7.5-11.1); MONO % 2.2 % (3.8-10.2); NEUT % 92.4 % (42.8-82.8); PLATELET COUNT 122 K/MM3 (134-434); RBC 3.57 M/mm3 (4.00-5.60); RDW 16.2 % (11.9-15.9); WHITE BLOOD COUNT 5.7 K/mm3 (4.0-10.0)
--- NOTE | 2017-08-08 07:53 | PN ---
Progress Note (short form) - Note Progress Note: Chief Complaint: Events noted, notes reviewed, complaining of generally not feeling well, denies any chest pain but reports dyspnea History of Present Illness: Seen and examined on telemetry. Events noted, notes reviewed, complaining of generally not feeling well, denies any chest pain but reports dyspnea ICD interrogation has not been performed as of yet as per the staff, [employer]' s clinical support team to be contacted Echocardiography dated 06/13/2017 revealed borderline concentric LVH, normal LV size and function, moderate-severe TR with severe pulmonary HTN, mod AR, mild MR Medications: Current Medications Albuterol Sulfate (Ventolin Hfa Inhaler -) 2 puff IH Q4H PRN PRN Reason: SHORT OF BREATH/WHEEZING Albuterol/Ipratropium (Duoneb -) 1 amp NEB Q4H PRN PRN Reason: SHORTNESS OF BREATH Dabigatran (Pradaxa -) 150 mg PO BID [facility] Last Admin: 08/08/17 10:14 Dose: 150 mg Diltiazem HCl (Cardizem Cd -) 240 mg PO DAILY [facility] Last Admin: 08/08/17 10:13 Dose: 240 mg Diltiazem HCl (Cardizem Injection -) 10 mg IVPUSH Q4H PRN PRN Reason: TACHYCARDIA Furosemide (Lasix -) 40 mg PO DAILY [facility] Last Admin: 08/08/17 10:13 Dose: 40 mg Guaifenesin (Mucinex -) 600 mg PO BID [facility] Last Admin: 08/08/17 10:13 Dose: 600 mg Cefepime HCl (Maxipime 1 Gm Premix Ivpb) 1 gm in 50 mls @ 100 mls/hr IVPB Q8H- IV [facility] Last Admin: 08/08/17 10:07 Dose: 100 mls/hr Vancomycin HCl 1,000 mg/ (Dextrose) 250 mls @ 166.667 mls/hr IVPB DAILY [facility] PRN Reason: Protocol Last Admin: 08/08/17 11:15 Dose: 166.667 mls/hr Methylprednisolone Sodium Succinate (Solu-Medrol -) 60 mg IVPUSH BID [facility] Last Admin: 08/08/17 10:13 Dose: 60 mg Oseltamivir Phosphate (Tamiflu -) 75 mg PO BID [facility] Stop: 08/11/17 10:01 Last Admin: 08/08/17 10:14 Dose: 75 mg Pantoprazole Sodium (Protonix -) 20 mg PO DAILY [facility] Last Admin: 08/08/17 10:13 Dose: 20 mg Fluticasone/Salmeterol (Advair 100mcg/50mcg -) 1 puff IH BID [facility] Last Admin: 08/08/17 10:04 Dose: 1 puff Review of Systems Cardiovascular: As noted above Respiratory: denies: reports: Cough Gastrointestinal: denies: Nausea, Vomiting, Diarrhea, Constipation or Abdominal Discomfort Musculoskeletal: No Symptoms Reported Endocrine: No Symptoms Reported Vital Signs: Last Vital Signs Temp Pulse Resp BP Pulse Ox 97.4 F L 74 18 121/71 97 08/08/17 10:00 08/08/17 10:00 08/08/17 10:00 08/08/17 10:00 08/08/17 10:10 Intake & Output 08/05/17 08/06/17 08/07/17 08/08/17 23:59 23:59 23:59 23:59 Intake Total 430 Output Total 250 Balance 180 Weight 169 lb 168 lb 15.996 oz Constitutional: No Distress, Calm, Thin Neck: Supple Negative JVD Respiratory: Diminished at the Bases Bilaterally Cardiovascular: S1 S2 Regular Rate and Rhythm Garde 1-2/6 MARYSOL Gastrointestinal: Soft Benign Normal Bowel Sounds Ext: No Edema Labs: CBC, BMP 08/08/17 05:30 08/08/17 05:30 INR, PTT INR 1.27 (0.82-1.09) H 08/06/17 20:15 Hepatic Panel Total Bilirubin 0.9 mg/dL (0.2-1.0) 08/06/17 20:15 AST 16 U/L (15-37) D 08/06/17 20:15 ALT 29 U/L (12-78) 08/06/17 20:15 Alkaline Phosphatase 119 U/L (45-117) H D 08/06/17 20:15 Albumin 2.9 g/dl (3.4-5.0) L 08/06/17 20:15 Assessment/Plan ASSESSMENT: 1. Post ICD discharge suspect atrial fibrillation with periods of rapid ventricular response, device interrogation pending 2. Chronic hypoxemic respiratory failure with underlying pulmonary fibrosis/ILD , asbestosis, pulmonary and pleural disease, R/O pneumonia 3. Post [employer] ICD implant for ventricular arrhythmia at [facility], on last device interrogation 4. Diastolic LV dysfunction with chronic class I-II NYHA classification LV failure, compensated/euvolemic 5. CAD with evednce of demand ischemic injury related to above 6. HTN 7. Home O2-dependent COPD 8. Pre-renal azotemia 9. Anemia and thrombocytopenia PLAN: 1. Continue Cardizem CD 2. Continue Pradaxa with caution and close monitoring of CBC 3. Continue Lasix with caution and close monitoring of renal function 4. antibiotics, steroids and bronchodilators as per the pulmonary team 5. ICD interrogation as planned Gali Michael MD
[2017-08-08 09:54] LABS: N-TERMINAL BNP 2155.81 pg/ml (5-450)
[2017-08-08] MEDS: methylPREDNISolone NA SUCC 125 MG/2 ML VIAL IVPUSH SCH ×2 (10:13→22:25)
[2017-08-08] MEDS: PANTOPRAZOLE 20 MG TABLET (FP) PO SCH (10:13)
[2017-08-08] MEDS: guaiFENesin 600 MG TABLET.ER (FP) PO SCH ×2 (10:13→22:25)
[2017-08-08] MEDS: FUROSEMIDE 40 MG TABLET (FP) PO SCH (10:13)
[2017-08-08] MEDS: OSELTAMIVIR PHOSPHATE 75 MG CAPSULE PO SCH ×2 (10:14→22:25)
[2017-08-08] MEDS: DABIGATRAN ETEXILATE MESYLATE 150 MG CAPSULE PO SCH ×2 (10:14→22:25)
[2017-08-08] MEDS ORDERED: PT OWN MED DRAWER 7, Y5N ONE ×3 (11:10→22:20)
[2017-08-08] MEDS: VANCOMYCIN 1,000 MG in DEXTROSE 5%-WATER - 250 ML IVPB SCH (11:15)
[2017-08-08] MEDS ORDERED: dilTIAZem HCL 50 MG/10 ML - 10 ML VIAL IVPUSH PRN (12:23)
--- NOTE | 2017-08-08 12:48 | PN ---
Progress Note, Physician Chief Complaint: patient is awake and alert stlll has cough - Current Medication List Current Medications: Active Medications Albuterol Sulfate (Ventolin Hfa Inhaler -) 2 puff IH Q4H PRN PRN Reason: SHORT OF BREATH/WHEEZING Albuterol/Ipratropium (Duoneb -) 1 amp NEB Q4H PRN PRN Reason: SHORTNESS OF BREATH Dabigatran (Pradaxa -) 150 mg PO BID [facility] Last Admin: 08/08/17 10:14 Dose: 150 mg Diltiazem HCl (Cardizem Cd -) 240 mg PO DAILY [facility] Last Admin: 08/08/17 10:13 Dose: 240 mg Diltiazem HCl (Cardizem Injection -) 10 mg IVPUSH Q4H PRN PRN Reason: TACHYCARDIA Furosemide (Lasix -) 40 mg PO DAILY [facility] Last Admin: 08/08/17 10:13 Dose: 40 mg Guaifenesin (Mucinex -) 600 mg PO BID [facility] Last Admin: 08/08/17 10:13 Dose: 600 mg Cefepime HCl (Maxipime 1 Gm Premix Ivpb) 1 gm in 50 mls @ 100 mls/hr IVPB Q8H- IV [facility] Last Admin: 08/08/17 10:07 Dose: 100 mls/hr Vancomycin HCl 1,000 mg/ (Dextrose) 250 mls @ 166.667 mls/hr IVPB DAILY [facility] PRN Reason: Protocol Last Admin: 08/08/17 11:15 Dose: 166.667 mls/hr Methylprednisolone Sodium Succinate (Solu-Medrol -) 60 mg IVPUSH BID [facility] Last Admin: 08/08/17 10:13 Dose: 60 mg Oseltamivir Phosphate (Tamiflu -) 75 mg PO BID [facility] Stop: 08/11/17 10:01 Last Admin: 08/08/17 10:14 Dose: 75 mg Pantoprazole Sodium (Protonix -) 20 mg PO DAILY [facility] Last Admin: 08/08/17 10:13 Dose: 20 mg Fluticasone/Salmeterol (Advair 100mcg/50mcg -) 1 puff IH BID [facility] Last Admin: 08/08/17 10:04 Dose: 1 puff - Objective Vital Signs: Vital Signs Temperature 97.4 F L 08/08/17 10:00 Pulse Rate 74 08/08/17 10:00 Respiratory Rate 18 08/08/17 10:00 Blood Pressure 121/71 08/08/17 10:00 O2 Sat by Pulse Oximetry (%) 97 08/08/17 10:10 Constitutional: Yes: Calm Cardiovascular: Yes: Regular Rate and Rhythm, S1, S2 Respiratory: Yes: Rhonchi, Wheezes Gastrointestinal: Yes: Soft Edema: No Neurological: Yes: Alert Labs: CBC, BMP 08/08/17 05:30 08/08/17 05:30 INR, PTT INR 1.27 (0.82-1.09) H 08/06/17 20:15 Problem List - Problems (1) Afib Assessment/Plan: pradaxa cardizem po iv cardizem prn Code(s): I48.91 - UNSPECIFIED ATRIAL FIBRILLATION Qualifiers: Qualified Code(s): I48.1 - Persistent atrial fibrillation (2) COPD (chronic obstructive pulmonary disease) Assessment/Plan: bronchodilators steroids mucinex Code(s): J44.9 - CHRONIC OBSTRUCTIVE PULMONARY DISEASE, UNSPECIFIED Qualifiers: Qualified Code(s): J44.9 - Chronic obstructive pulmonary disease, unspecified (3) PNA (pneumonia) Assessment/Plan: ID omar got cefepime and vanco and started on tamiflu urinary legionalla pending Code(s): J18.9 - PNEUMONIA, UNSPECIFIED ORGANISM Qualifiers: Qualified Code(s): J18.9 - Pneumonia, unspecified organism Assessment/Plan when patient is discharge he needs his defibrillator generator change as soon as possible
--- NOTE | 2017-08-08 13:16 | PN ---
Progress Note (short form) - Note Progress Note: PULMONARY No further ICD discharges. Still with shortness of breath and congestion. Last Vital Signs Temp Pulse Resp BP Pulse Ox 97.4 F L 74 18 121/71 97 08/08/17 10:00 08/08/17 10:00 08/08/17 10:00 08/08/17 10:00 08/08/17 10:10 Gen: mildly tachypneic with speaking Heart: irregular Lung: bilateral rhonchi Abd: soft, nontender Ext: no edema CBC, BMP 08/08/17 05:30 08/08/17 05:30 Active Medications Albuterol Sulfate (Ventolin Hfa Inhaler -) 2 puff IH Q4H PRN PRN Reason: SHORT OF BREATH/WHEEZING Albuterol/Ipratropium (Duoneb -) 1 amp NEB Q4H PRN PRN Reason: SHORTNESS OF BREATH Dabigatran (Pradaxa -) 150 mg PO BID [facility] Last Admin: 08/08/17 10:14 Dose: 150 mg Diltiazem HCl (Cardizem Cd -) 240 mg PO DAILY [facility] Last Admin: 08/08/17 10:13 Dose: 240 mg Diltiazem HCl (Cardizem Injection -) 10 mg IVPUSH Q4H PRN PRN Reason: TACHYCARDIA Furosemide (Lasix -) 40 mg PO DAILY [facility] Last Admin: 08/08/17 10:13 Dose: 40 mg Guaifenesin (Mucinex -) 600 mg PO BID [facility] Last Admin: 08/08/17 10:13 Dose: 600 mg Cefepime HCl (Maxipime 1 Gm Premix Ivpb) 1 gm in 50 mls @ 100 mls/hr IVPB Q8H- IV [facility] Last Admin: 08/08/17 10:07 Dose: 100 mls/hr Vancomycin HCl 1,000 mg/ (Dextrose) 250 mls @ 166.667 mls/hr IVPB DAILY [facility] PRN Reason: Protocol Last Admin: 08/08/17 11:15 Dose: 166.667 mls/hr Methylprednisolone Sodium Succinate (Solu-Medrol -) 60 mg IVPUSH BID [facility] Last Admin: 08/08/17 10:13 Dose: 60 mg Oseltamivir Phosphate (Tamiflu -) 75 mg PO BID [facility] Stop: 08/11/17 10:01 Last Admin: 08/08/17 10:14 Dose: 75 mg Pantoprazole Sodium (Protonix -) 20 mg PO DAILY [facility] Last Admin: 08/08/17 10:13 Dose: 20 mg Fluticasone/Salmeterol (Advair 100mcg/50mcg -) 1 puff IH BID [facility] Last Admin: 08/08/17 10:04 Dose: 1 puff A/P Acute COPD Exacerbation Interstitial Lung Disease LV Diastolic Dysfunction Atrial Fibrillation s/p ICD Discharge r/o Pneumonia Lactic Acidosis - continue IV medrol - inhaled bronchodilators - empiric tamiflu, antibiotics - f/u cultures - ICD interrogation - O2 to keep Spo2 >90% - rate control - continue anticoagulation - continue lasix - monitor urine ouput, creatinine - repeat CXR in AM
[2017-08-08] MEDS: ALBUTEROL SO4 2.5/IPRATROPIUM 0.5 INH SOL 3 ML VIAL.NEB. NEB PRN ×2 (14:30→20:30)
--- NOTE | 2017-08-08 15:05 | PN ---
Progress Note (short form) - Note Progress Note: doing much better off bipap feels "congested" cough with yellow sputum, no blood Vital Signs Period Temp Pulse Resp BP Sys/Starkey Pulse Ox Last 24 Hr 97.4 F-98.1 F 74-100 18-25 105-138/54-71 97-100 cor-rrr lungs bibasilar crackles, left greater then right abd soft,nt ext no edema CBC, BMP 08/08/17 05:30 08/08/17 05:30 Microbiology 08/07/17 02:30 Urine - Urine Jolley Urine Culture - Final NO GROWTH OBTAINED 08/06/17 21:00 Blood - Peripheral Venous Blood Culture - Preliminary NO GROWTH OBTAINED AFTER 24 HOURS, INCUBATION TO CONTINUE FOR 4 DAYS. 08/06/17 20:15 Blood - Peripheral Venous Blood Culture - Preliminary NO GROWTH OBTAINED AFTER 24 HOURS, INCUBATION TO CONTINUE FOR 4 DAYS. 08/06/17 20:15 Nasopharyngeal Swab Influenza Types A,B Antigen (NAHED) - Final 08/06/17 20:15 Nasopharyngeal Swab - Final a/p s/p defib discharge ILD, cannot r/o pneumonia now off bipap ?CHF repeat cxray continue antibiotics and tamiflu Problem List - Problems (1) Defibrillator discharge Code(s): Z45.02 - ENCNTR FOR ADJUST AND MGMT OF AUTOMATIC IMPLNTBL CARD DEFIB (2) PNA (pneumonia) Code(s): J18.9 - PNEUMONIA, UNSPECIFIED ORGANISM Qualifiers: Pneumonia type: due to unspecified organism Laterality: bilateral Lung location: lower lobe of lung Qualified Code(s): J18.9 - Pneumonia, unspecified organism (3) Acute on chronic respiratory failure with hypoxemia Code(s): J96.21 - ACUTE AND CHRONIC RESPIRATORY FAILURE WITH HYPOXIA (4) Interstitial lung disease Code(s): J84.9 - INTERSTITIAL PULMONARY DISEASE, UNSPECIFIED (5) COPD with exacerbation Code(s): J44.1 - CHRONIC OBSTRUCTIVE PULMONARY DISEASE W (ACUTE) EXACERBATION (6) Penicillin allergy Code(s): Z88.0 - ALLERGY STATUS TO PENICILLIN
[2017-08-09] MEDS: CEFEPIME HCL/D5W 1 GM/50 ML BAG IVPB SCH ×2 (01:58→09:20)
[2017-08-09 07:07] LABS: BASO % 0.1 % (0-2.0); HEMATOCRIT 31.3 % (35.4-49); HEMOGLOBIN 10.4 GM/dL (11.7-16.9); LYMPH % 2.6 % (8-40); MCH 32.2 pg (25.7-33.7); MCHC 33.2 g/dl (32.0-35.9); MEAN CELL VOLUME 96.9 fl (80-96); MEAN PLT VOLUME 7.7 fl (7.5-11.1); MONO % 2.6 % (3.8-10.2); NEUT % 94.7 % (42.8-82.8); PLATELET COUNT 116 K/MM3 (134-434); RBC 3.23 M/mm3 (4.00-5.60); RDW 16.1 % (11.9-15.9); WHITE BLOOD COUNT 8.2 K/mm3 (4.0-10.0)
[2017-08-09 07:47] LABS: ALBUMIN 2.3 g/dl (3.4-5.0); ANION GAP 7 (8-16); BILIRUBIN,TOTAL 0.5 mg/dL (0.2-1.0); BLOOD UREA NITROGEN 27 mg/dL (7-18); CALCIUM 7.4 mg/dL (8.5-10.1); CHLORIDE 102 mmol/L (98-107); CO2 29 mmol/L (21-32); CREATININE 0.7 mg/dL (0.7-1.3); GLUCOSE,RANDOM 194 mg/dL (74-106); POTASSIUM 3.4 mmol/L (3.5-5.1); SGPT/ALT 17 U/L (12-78); SODIUM 138 mmol/L (136-145)
[2017-08-09 07:48] LABS: ALK PHOS 79 U/L (45-117); TOT PROT 5.6 g/dl (6.4-8.2)
[2017-08-09 08:15] LABS: SGOT/AST 4 U/L (15-37)
[2017-08-09] MEDS ORDERED: PT OWN MED DRAWER 7, Y5N ONE ×2 (09:13→21:06)
[2017-08-09] MEDS: DABIGATRAN ETEXILATE MESYLATE 150 MG CAPSULE PO SCH (09:19)
[2017-08-09] MEDS: PANTOPRAZOLE 20 MG TABLET (FP) PO SCH (09:19)
[2017-08-09] MEDS: OSELTAMIVIR PHOSPHATE 75 MG CAPSULE PO SCH ×2 (09:20→22:22)
[2017-08-09] MEDS: FUROSEMIDE 40 MG TABLET (FP) PO SCH (09:20)
[2017-08-09] MEDS: methylPREDNISolone NA SUCC 125 MG/2 ML VIAL IVPUSH SCH ×2 (09:21→21:14)
[2017-08-09] MEDS: guaiFENesin 600 MG TABLET.ER (FP) PO SCH ×2 (09:21→21:14)
[2017-08-09] MEDS: FLUTICASONE/SALMETEROL 100 MCG/50 MCG DISKUS IH SCH ×2 (09:21→21:14)
[2017-08-09] MEDS: VANCOMYCIN 1,000 MG in DEXTROSE 5%-WATER - 250 ML IVPB SCH (09:27)
[2017-08-09] MEDS: ALBUTEROL SO4 2.5/IPRATROPIUM 0.5 INH SOL 3 ML VIAL.NEB. NEB PRN ×2 (09:55→16:04)
--- NOTE | 2017-08-09 10:54 | PN ---
Progress Note, Physician Chief Complaint: AWAKE COUGHING ON 02NC - Current Medication List Current Medications: Active Medications Albuterol Sulfate (Ventolin Hfa Inhaler -) 2 puff IH Q4H PRN PRN Reason: SHORT OF BREATH/WHEEZING Albuterol/Ipratropium (Duoneb -) 1 amp NEB Q4H PRN PRN Reason: SHORTNESS OF BREATH Last Admin: 08/09/17 09:55 Dose: 1 amp Dabigatran (Pradaxa -) 150 mg PO BID [facility] Last Admin: 08/09/17 09:19 Dose: 150 mg Diltiazem HCl (Cardizem Cd -) 240 mg PO DAILY [facility] Last Admin: 08/09/17 09:20 Dose: 240 mg Diltiazem HCl (Cardizem Injection -) 10 mg IVPUSH Q4H PRN PRN Reason: TACHYCARDIA Furosemide (Lasix -) 40 mg PO DAILY [facility] Last Admin: 08/09/17 09:20 Dose: 40 mg Guaifenesin (Mucinex -) 600 mg PO BID [facility] Last Admin: 08/09/17 09:21 Dose: 600 mg Cefepime HCl (Maxipime 1 Gm Premix Ivpb) 1 gm in 50 mls @ 100 mls/hr IVPB Q8H- IV HEMAL Last Admin: 08/09/17 09:20 Dose: 100 mls/hr Vancomycin HCl 1,000 mg/ (Dextrose) 250 mls @ 166.667 mls/hr IVPB DAILY [facility] PRN Reason: Protocol Last Admin: 08/09/17 09:27 Dose: 166.667 mls/hr Methylprednisolone Sodium Succinate (Solu-Medrol -) 60 mg IVPUSH BID [facility] Last Admin: 08/09/17 09:21 Dose: 60 mg Oseltamivir Phosphate (Tamiflu -) 75 mg PO BID [facility] Stop: 08/11/17 10:01 Last Admin: 08/09/17 09:20 Dose: 75 mg Pantoprazole Sodium (Protonix -) 20 mg PO DAILY [facility] Last Admin: 08/09/17 09:19 Dose: 20 mg Potassium Chloride (K-Dur -) 20 meq PO ONCE ONE Stop: 08/09/17 10:50 Fluticasone/Salmeterol (Advair 100mcg/50mcg -) 1 puff IH BID [facility] Last Admin: 08/09/17 09:21 Dose: 1 puff - Objective Vital Signs: Vital Signs Temperature 97.4 F L 08/09/17 05:00 Pulse Rate 79 08/09/17 05:00 Respiratory Rate 20 08/09/17 05:00 Blood Pressure 103/59 08/09/17 05:00 O2 Sat by Pulse Oximetry (%) 93 L 08/08/17 21:00 Constitutional: Yes: Mild Distress Eyes: Yes: WNL HENT: Yes: WNL, Tonsillar Exudate Cardiovascular: Yes: Pulse Irregular Respiratory: Yes: Cough, On Nasal O2, Rhonchi Gastrointestinal: Yes: WNL Genitourinary: Yes: Incontinence Musculoskeletal: Yes: Muscle Weakness Extremities: Yes: WNL Edema: No Peripheral Pulses WNL: Yes Integumentary: Yes: WNL Wound/Incision: Yes: Clean/Dry Neurological: Yes: Confusion, Pre-Existing Deficit ...Motor Strength: LLE, RLE Psychiatric: Yes: Other Labs: CBC, BMP 08/09/17 05:35 08/09/17 05:35 INR, PTT INR 1.27 (0.82-1.09) H 08/06/17 20:15 Problem List - Problems (2) Acute on chronic respiratory failure with hypoxemia Code(s): J96.21 - ACUTE AND CHRONIC RESPIRATORY FAILURE WITH HYPOXIA (3) Afib Code(s): I48.91 - UNSPECIFIED ATRIAL FIBRILLATION Qualifiers: Atrial fibrillation type: persistent Qualified Code(s): I48.1 - Persistent atrial fibrillation (4) COPD (chronic obstructive pulmonary disease) Code(s): J44.9 - CHRONIC OBSTRUCTIVE PULMONARY DISEASE, UNSPECIFIED Qualifiers: COPD type: unspecified COPD Qualified Code(s): J44.9 - Chronic obstructive pulmonary disease, unspecified (5) COPD with exacerbation Code(s): J44.1 - CHRONIC OBSTRUCTIVE PULMONARY DISEASE W (ACUTE) EXACERBATION (6) Cerebrovascular disease Code(s): I67.9 - CEREBROVASCULAR DISEASE, UNSPECIFIED (7) Congestive heart failure, diastolic, left, w/preserved LV function, NYHA class 4 Code(s): I50.30 - UNSPECIFIED DIASTOLIC (CONGESTIVE) HEART FAILURE (8) Type 2 diabetes mellitus with diabetic peripheral angiopathy without gangrene Code(s): E11.51 - TYPE 2 DIABETES W DIABETIC PERIPHERAL ANGIOPATH W/O GANGRENE Assessment/Plan TAMIFLU FOR PROPHYLAXIS IV ABX NEBS 02 SUPPORT PULM AND ID FOLLOW UP
[2017-08-09] MEDS ORDERED: POTASSIUM CHLORIDE TABS 20 MEQ TABLET.ER (FP) PO ONE (11:45)
--- NOTE | 2017-08-09 11:58 | PN ---
Progress Note, Physician History of Present Illness: Dyspnea and congestion slowly resolving. - Current Medication List Current Medications: Active Medications Albuterol Sulfate (Ventolin Hfa Inhaler -) 2 puff IH Q4H PRN PRN Reason: SHORT OF BREATH/WHEEZING Albuterol/Ipratropium (Duoneb -) 1 amp NEB Q4H PRN PRN Reason: SHORTNESS OF BREATH Last Admin: 08/09/17 09:55 Dose: 1 amp Dabigatran (Pradaxa -) 150 mg PO BID [facility] Last Admin: 08/09/17 09:19 Dose: 150 mg Diltiazem HCl (Cardizem Cd -) 240 mg PO DAILY [facility] Last Admin: 08/09/17 09:20 Dose: 240 mg Diltiazem HCl (Cardizem Injection -) 10 mg IVPUSH Q4H PRN PRN Reason: TACHYCARDIA Furosemide (Lasix -) 40 mg PO DAILY [facility] Last Admin: 08/09/17 09:20 Dose: 40 mg Guaifenesin (Mucinex -) 600 mg PO BID [facility] Last Admin: 08/09/17 09:21 Dose: 600 mg Cefepime HCl (Maxipime 1 Gm Premix Ivpb) 1 gm in 50 mls @ 100 mls/hr IVPB Q8H- IV HEMAL Last Admin: 08/09/17 09:20 Dose: 100 mls/hr Vancomycin HCl 1,000 mg/ (Dextrose) 250 mls @ 166.667 mls/hr IVPB DAILY [facility] PRN Reason: Protocol Last Admin: 08/09/17 09:27 Dose: 166.667 mls/hr Methylprednisolone Sodium Succinate (Solu-Medrol -) 60 mg IVPUSH BID [facility] Last Admin: 08/09/17 09:21 Dose: 60 mg Oseltamivir Phosphate (Tamiflu -) 75 mg PO BID [facility] Stop: 08/11/17 10:01 Last Admin: 08/09/17 09:20 Dose: 75 mg Pantoprazole Sodium (Protonix -) 20 mg PO DAILY [facility] Last Admin: 08/09/17 09:19 Dose: 20 mg Fluticasone/Salmeterol (Advair 100mcg/50mcg -) 1 puff IH BID [facility] Last Admin: 08/09/17 09:21 Dose: 1 puff - Objective Vital Signs: Vital Signs Temperature 97.3 F L 08/09/17 09:00 Pulse Rate 89 08/09/17 09:00 Respiratory Rate 20 08/09/17 09:00 Blood Pressure 105/69 08/09/17 09:00 O2 Sat by Pulse Oximetry (%) 96 08/09/17 09:00 Constitutional: Yes: No Distress, Calm, Thin Neck: Yes: Supple Cardiovascular: Yes: Pulse Irregular Respiratory: Yes: Regular, Diminished, On Nasal O2 Gastrointestinal: Yes: Normal Bowel Sounds, Soft Edema: No Labs: CBC, BMP 08/09/17 05:35 08/09/17 05:35 INR, PTT INR 1.27 (0.82-1.09) H 08/06/17 20:15 - ....Imaging EKG: Report Reviewed (Tele: Rate-controlled afib) Problem List - Problems (1) Defibrillator discharge Code(s): Z45.02 - ENCNTR FOR ADJUST AND MGMT OF AUTOMATIC IMPLNTBL CARD DEFIB (2) COPD (chronic obstructive pulmonary disease) Code(s): J44.9 - CHRONIC OBSTRUCTIVE PULMONARY DISEASE, UNSPECIFIED Qualifiers: COPD type: unspecified COPD Qualified Code(s): J44.9 - Chronic obstructive pulmonary disease, unspecified (3) 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 Code(s): J92.0 - PLEURAL PLAQUE WITH PRESENCE OF ASBESTOS (4) Cerebrovascular disease Code(s): I67.9 - CEREBROVASCULAR DISEASE, UNSPECIFIED (5) Chronic anticoagulation Code(s): Z79.01 - PAINTER BARREL (CURRENT) USE OF ANTICOAGULANTS (6) Diastolic dysfunction without heart failure Code(s): I51.9 - HEART DISEASE, UNSPECIFIED (7) Encounter for interrogation of cardiac pacemaker Code(s): Z45.018 - ENCOUNTER FOR ADJUST AND MGMT OTH PRT CARDIAC PACEMAKER (8) Pulmonary hypertension Code(s): I27.20 - PULMONARY HYPERTENSION, UNSPECIFIED (9) Rapid atrial fibrillation Code(s): I48.91 - UNSPECIFIED ATRIAL FIBRILLATION Assessment/Plan 06/13/2017 Echo: Borderline cLVH, normal LV size and fxn, mod-severe TR with severe pulm HTN, mod AR, mild MR 1. ICD discharge referable to atrial fibrillation with periods of increased ventricular response 2. Chronic hypoxemic respiratory failure with underlying pulmonary fibrosis/ILD , asbestosis, pulmonary and pleural disease, r/o PNA 3. [employer] ICD for ventricular arrhythmia at [facility] with monitoring functions suspended 4. HTN/HCVD 5. 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 Gout 8. Demand ischemia PLAN: 1. Continue Cardizem CD 240 qd with IV Cardizem as needed for rate control 2. Continue Pradaxa 150 bid, Lasix 40 qd, replete K as you are 3. Schedule for generator change with Dr. Osvaldo Gaston as inpatient with clinical improvement, will need this as his ICD has reached [facility] - difficulty with outpatient f/u 4. BD, IV steroids with GI protection, O2 as needed, empiric abx and tamiflu course per ID
--- NOTE | 2017-08-09 12:26 | PN ---
Progress Note (short form) - Note Progress Note: doing much better off bipap feels "congested" cough with yellow sputum, no blood Vital Signs Period Temp Pulse Resp BP Sys/Starkey Pulse Ox Last 24 Hr 97.3 F-98.2 F 77-92 20-25 94-105/51-69 93-96 cor-rrr lungs scattered rhonchi abd soft,nt ext no edema CBC, BMP 08/09/17 05:35 08/09/17 05:35 Microbiology 08/06/17 21:00 Blood - Peripheral Venous Blood Culture - Preliminary NO GROWTH OBTAINED AFTER 48 HOURS, INCUBATION TO CONTINUE FOR 3 DAYS. 08/06/17 20:15 Blood - Peripheral Venous Blood Culture - Preliminary NO GROWTH OBTAINED AFTER 48 HOURS, INCUBATION TO CONTINUE FOR 3 DAYS. 08/06/17 23:35 Urine For Antigen Detection Legionella Antigen - Final 08/06/17 23:35 Urine For Antigen Detection Streptococcus pneumoniae Antigen (M - Final 08/07/17 02:30 Urine - Urine Jolley Urine Culture - Final NO GROWTH OBTAINED 08/06/17 20:15 Nasopharyngeal Swab Influenza Types A,B Antigen (NAHED) - Final 08/06/17 20:15 Nasopharyngeal Swab - Final cxray- less fluid a/p s/p defib discharge ILD,- films reviewed with Dr Keith- essentially unchanged from prior- will d/c antibiotics and observe now off bipap ?CHF- repeat cxray less fluid in the fissure Problem List - Problems (1) Defibrillator discharge Code(s): Z45.02 - ENCNTR FOR ADJUST AND MGMT OF AUTOMATIC IMPLNTBL CARD DEFIB (2) PNA (pneumonia) Code(s): J18.9 - PNEUMONIA, UNSPECIFIED ORGANISM Qualifiers: Pneumonia type: due to unspecified organism Laterality: bilateral Lung location: lower lobe of lung Qualified Code(s): J18.9 - Pneumonia, unspecified organism (3) Acute on chronic respiratory failure with hypoxemia Code(s): J96.21 - ACUTE AND CHRONIC RESPIRATORY FAILURE WITH HYPOXIA (4) Interstitial lung disease Code(s): J84.9 - INTERSTITIAL PULMONARY DISEASE, UNSPECIFIED (5) COPD with exacerbation Code(s): J44.1 - CHRONIC OBSTRUCTIVE PULMONARY DISEASE W (ACUTE) EXACERBATION (6) Penicillin allergy Code(s): Z88.0 - ALLERGY STATUS TO PENICILLIN
--- NOTE | 2017-08-09 12:58 | PN ---
Progress Note, Physician History of Present Illness: pulmonary alert,less dypneic,on nasal o2 - Current Medication List Current Medications: Active Medications Albuterol Sulfate (Ventolin Hfa Inhaler -) 2 puff IH Q4H PRN PRN Reason: SHORT OF BREATH/WHEEZING Albuterol/Ipratropium (Duoneb -) 1 amp NEB Q4H PRN PRN Reason: SHORTNESS OF BREATH Last Admin: 08/09/17 09:55 Dose: 1 amp Dabigatran (Pradaxa -) 150 mg PO BID [facility] Last Admin: 08/09/17 09:19 Dose: 150 mg Diltiazem HCl (Cardizem Cd -) 240 mg PO DAILY [facility] Last Admin: 08/09/17 09:20 Dose: 240 mg Diltiazem HCl (Cardizem Injection -) 10 mg IVPUSH Q4H PRN PRN Reason: TACHYCARDIA Furosemide (Lasix -) 40 mg PO DAILY [facility] Last Admin: 08/09/17 09:20 Dose: 40 mg Guaifenesin (Mucinex -) 600 mg PO BID [facility] Last Admin: 08/09/17 09:21 Dose: 600 mg Methylprednisolone Sodium Succinate (Solu-Medrol -) 60 mg IVPUSH BID [facility] Last Admin: 08/09/17 09:21 Dose: 60 mg Oseltamivir Phosphate (Tamiflu -) 75 mg PO BID [facility] Stop: 08/11/17 10:01 Last Admin: 08/09/17 09:20 Dose: 75 mg Pantoprazole Sodium (Protonix -) 20 mg PO DAILY [facility] Last Admin: 08/09/17 09:19 Dose: 20 mg Fluticasone/Salmeterol (Advair 100mcg/50mcg -) 1 puff IH BID [facility] Last Admin: 08/09/17 09:21 Dose: 1 puff - Objective Vital Signs: Vital Signs Temperature 97.3 F L 08/09/17 09:00 Pulse Rate 89 08/09/17 09:00 Respiratory Rate 20 08/09/17 09:00 Blood Pressure 105/69 08/09/17 09:00 O2 Sat by Pulse Oximetry (%) 96 08/09/17 09:00 Constitutional: Yes: Well Nourished, Calm Eyes: Yes: WNL HENT: Yes: Nasal Congestion Neck: Yes: WNL Cardiovascular: Yes: Pulse Irregular, S1, S2 Respiratory: Yes: Rhonchi (scattered randy rhonchi) Gastrointestinal: Yes: Normal Bowel Sounds, Soft Extremities: Yes: WNL Edema: No Labs: CBC, BMP 08/09/17 05:35 08/09/17 05:35 INR, PTT INR 1.27 (0.82-1.09) H 08/06/17 20:15 Problem List - Problems (1) Defibrillator discharge Code(s): Z45.02 - ENCNTR FOR ADJUST AND MGMT OF AUTOMATIC IMPLNTBL CARD DEFIB (3) Acute on chronic respiratory failure with hypoxemia Code(s): J96.21 - ACUTE AND CHRONIC RESPIRATORY FAILURE WITH HYPOXIA (4) COPD with exacerbation Code(s): J44.1 - CHRONIC OBSTRUCTIVE PULMONARY DISEASE W (ACUTE) EXACERBATION (5) 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 Code(s): J92.0 - PLEURAL PLAQUE WITH PRESENCE OF ASBESTOS (6) Cerebrovascular disease Code(s): I67.9 - CEREBROVASCULAR DISEASE, UNSPECIFIED (7) Interstitial lung disease Code(s): J84.9 - INTERSTITIAL PULMONARY DISEASE, UNSPECIFIED (8) PNA (pneumonia) Code(s): J18.9 - PNEUMONIA, UNSPECIFIED ORGANISM Qualifiers: Pneumonia type: due to unspecified organism Laterality: bilateral Lung location: lower lobe of lung Qualified Code(s): J18.9 - Pneumonia, unspecified organism (9) Paroxysmal atrial fibrillation Code(s): I48.0 - PAROXYSMAL ATRIAL FIBRILLATION (10) Pulmonary hypertension Code(s): I27.20 - PULMONARY HYPERTENSION, UNSPECIFIED (12) Lactate blood increase Code(s): R79.89 - OTHER SPECIFIED ABNORMAL FINDINGS OF BLOOD CHEMISTRY Assessment/Plan IMP ACUTE ON CHRONIC HYPOXEMIC RESPIRATORY FAILURE IMPROVING COPD EXACERBATION INTERSTITIAL LUNG DISEASE/PULMONARY FIBROSIS ? 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 Code(s): J92.0 - PLEURAL PLAQUE WITH PRESENCE OF ASBESTOS (6) Cerebrovascular disease Code(s): I67.9 - CEREBROVASCULAR DISEASE, UNSPECIFIED (7) Interstitial lung disease Code(s): J84.9 - INTERSTITIAL PULMONARY DISEASE, UNSPECIFIED (8) PNA (pneumonia) Code(s): J18.9 - PNEUMONIA, UNSPECIFIED ORGANISM Qualifiers: Pneumonia type: due to unspecified organism Laterality: bilateral Lung location: lower lobe of lung Qualified Code(s): J18.9 - Pneumonia, unspecified organism (9) Paroxysmal atrial fibrillation Code(s): I48.0 - PAROXYSMAL ATRIAL FIBRILLATION (10) Pulmonary hypertension Code(s): I27.20 - PULMONARY HYPERTENSION, UNSPECIFIED (12) Lactate blood increase Code(s): R79.89 - OTHER SPECIFIED ABNORMAL FINDINGS OF BLOOD CHEMISTRY
[2017-08-10] MEDS: ALBUTEROL SO4 2.5/IPRATROPIUM 0.5 INH SOL 3 ML VIAL.NEB. NEB PRN (05:35)
[2017-08-10 06:00] VITALS: TEMP 97.4
[2017-08-10 06:11] LABS: HEMATOCRIT 31.2 % (35.4-49); HEMOGLOBIN 10.5 GM/dL (11.7-16.9); MCH 32.8 pg (25.7-33.7); MCHC 33.7 g/dl (32.0-35.9); MEAN CELL VOLUME 97.2 fl (80-96); MEAN PLT VOLUME 8.1 fl (7.5-11.1); PLATELET COUNT 115 K/MM3 (134-434); RBC 3.21 M/mm3 (4.00-5.60); RDW 16.3 % (11.9-15.9)
[2017-08-10 07:14] LABS: ANION GAP 8 (8-16); BLOOD UREA NITROGEN 23 mg/dL (7-18); CALCIUM 7.3 mg/dL (8.5-10.1); CHLORIDE 101 mmol/L (98-107); CO2 30 mmol/L (21-32); GLUCOSE,RANDOM 160 mg/dL (74-106); MAGNESIUM 1.8 mg/dL (1.8-2.4); POTASSIUM 3.3 mmol/L (3.5-5.1); SODIUM 139 mmol/L (136-145)
[2017-08-10 07:15] LABS: CREATININE 0.7 mg/dL (0.7-1.3)
[2017-08-10] MEDS ORDERED: PT OWN MED DRAWER 7, Y5N ONE (08:47)
[2017-08-10] MEDS: FUROSEMIDE 40 MG TABLET (FP) PO SCH ×2 (08:52→09:26)
[2017-08-10] MEDS: OSELTAMIVIR PHOSPHATE 75 MG CAPSULE PO SCH ×2 (08:52→09:27)
[2017-08-10] MEDS: FLUTICASONE/SALMETEROL 100 MCG/50 MCG DISKUS IH SCH ×2 (08:52→09:26)
[2017-08-10] MEDS: guaiFENesin 600 MG TABLET.ER (FP) PO SCH ×2 (08:52→09:26)
[2017-08-10] MEDS: PANTOPRAZOLE 20 MG TABLET (FP) PO SCH ×2 (08:52→09:26)
[2017-08-10] MEDS: methylPREDNISolone NA SUCC 125 MG/2 ML VIAL IVPUSH SCH ×2 (08:53→09:27)
--- NOTE | 2017-08-10 09:18 | DS ---
Physical Examination Vital Signs: Vital Signs Temperature 97.4 F L 08/10/17 06:00 Pulse Rate 83 08/10/17 06:00 Respiratory Rate 20 08/10/17 06:00 Blood Pressure 103/60 08/10/17 06:00 O2 Sat by Pulse Oximetry (%) 98 08/09/17 21:00 Cardiovascular: Yes: S1, S2 Respiratory: Yes: Regular, CTA Bilaterally Gastrointestinal: Yes: Normal Bowel Sounds, Soft Labs: CBC, BMP 08/10/17 05:35 08/10/17 05:35 Discharge Summary Reason For Visit: SOB Current Active Problems Defibrillator discharge (Acute) Lactate blood increase (Acute) Penicillin allergy (Acute) Hospital Course: 87 y/o M with PMH pulmonary fibrosis/ILD, afib, diastolic CHF, COPD (02 dependent; uses 2L at home as per niece), recent dx 07/19/17 for PNA (nebs, Cefepime-HCAP, prednisone 30mg PO BID taper), who presents to the ED after c/o ICD shocking him 4x today. As per niece, pt was initially residing at [facility]. While he was there, he had developed a productive cough with brown sputum, so he came to the ED at [facility] where he was treated for PNA. He was released from [facility] on 07/28/17, and taken to [facility] for rehab, however left AMA. Pt then came home, and was living independently with help from niece. Today, at 7PM, he went to the bathroom and immediately felt SOB, dizzy and lightheaded while having a BM. His ICD then shocked him 4x, so he called out for help. His niece then called 911 and he was brought to the ED via ambulance. Pt endorses palpitations during the episode, and productive cough of white sputum (without blood), but denies syncopal episode, ZUNIGA, fever, chills, chest pain, or changes in urinary or bowel function. When the pt arrived at the ED, he was noted to be extremely SOB, so he was started on BiPAP. 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, help with snow removal Smoking: quit smoking 50 yrs ago; however, prior smoked 20 yrs 1-1.5ppd Alcohol: socially Drugs: denies - Problems (1) Afib Assessment/Plan: pradaxa cardizem po iv cardizem prn Code(s): I48.91 - UNSPECIFIED ATRIAL FIBRILLATION Qualifiers: Qualified Code(s): I48.1 - Persistent atrial fibrillation (2) COPD (chronic obstructive pulmonary disease) Assessment/Plan: bronchodilators steroids mucinex Code(s): J44.9 - CHRONIC OBSTRUCTIVE PULMONARY DISEASE, UNSPECIFIED Qualifiers: Qualified Code(s): J44.9 - Chronic obstructive pulmonary disease, unspecified (3) PNA (pneumonia) Assessment/Plan: ID omar got cefepime and vanco and started on tamiflu urinary [place] pending Code(s): J18.9 - PNEUMONIA, UNSPECIFIED ORGANISM Qualifiers: Qualified Code(s): J18.9 - Pneumonia, unspecified organism (4) sepsis Assessment/Plan: ID eval off abx cultures noted Assessment/Plan pt discharge to [place] for his defibrillator generator change Condition: Fair - Instructions Referrals: Lizy Vargas MD [Primary Care Provider] - Disposition: TRANSFER ACUTE CARE/OTHER HOSP - Home Medications Comprehensive Discharge Medication List: Ambulatory Orders Albuterol Sulfate Inhaler - [Ventolin HFA Inhaler -] 2 inh PO Q4H 10/29/13 Dabigatran Etexilate Mesylate [Pradaxa -] 150 mg PO BID 06/12/17 Acetaminophen [Tylenol .Regular Strength -] 650 mg PO Q6H PRN tablet 07/28/17 Multivit-Min/FA/Lycopen/Lutein [Centrum Silver Tablet] 1 each PO DAILY 08/07/17 Salmeterol/Fluticasone [Advair 100Mcg/50Mcg -] 1 inh PO BID 08/07/17 Tiotropium [place] [Spiriva] 1 inh PO DAILY 08/07/17 Albuterol 2.5/Ipratropium 0.5 [Duoneb -] 1 amp NEB Q4H PRN amp 08/10/17 Diltiazem Cd [Cardizem Cd -] 240 mg PO DAILY cap.cd.24h 08/10/17 Furosemide [Lasix -] 40 mg PO DAILY tablet 08/10/17 Guaifenesin [Mucinex -] 600 mg PO BID tablet.er 08/10/17 Oseltamivir Phosphate [Tamiflu -] 75 mg PO BID capsule 08/10/17 Pantoprazole Sodium [Protonix -] 20 mg PO DAILY tablet.ec 08/10/17
[2017-08-10 09:45] VITALS: BP 117/59; PULSE 82
== END 2017-08-10 09:52 | disposition short-term general hospital (02) | DRG 871 ==
LOC: JER 19:55 → JERBED 22:19 → J4S 08-07 18:58
PROVIDERS: ADMIT Internal Medicine; ATTEND Family Medicine
PROC: 5A09557 Assistance with Respiratory Ventilation, Greater than 96 Consecutive Hours, Continuous Positive Airway Pressure (ICD-10-PCS; principal; 2017-08-06)
DX: A41.9 Sepsis, unspecified organism (principal); J18.9 Pneumonia, unspecified organism; J96.21 Acute and chronic respiratory failure with hypoxia; I50.30 Unspecified diastolic (congestive) heart failure; J44.1 Chronic obstructive pulmonary disease with (acute) exacerbation; J84.9 Interstitial pulmonary disease, unspecified; I24.8 Other forms of acute ischemic heart disease; E87.2 Acidosis; Z88.0 Allergy status to penicillin; Z45.02 Encounter for adjustment and management of automatic implantable cardiac defibrillator; I48.0 Paroxysmal atrial fibrillation; I27.20 Pulmonary hypertension, unspecified; R79.89 Other specified abnormal findings of blood chemistry; I11.0 Hypertensive heart disease with heart failure; M10.9 Gout, unspecified; D64.9 Anemia, unspecified; D69.6 Thrombocytopenia, unspecified
CPT/HCPCS: 36415; 36600; 71045-TC; 80048; 80053; 81003; 81015; 82550; 82803; 83605; 83735; 83880; 84443; 84484; 85025; 85027; 85610; 85730; 86850; 86900; 86901; 87040; 87086; 87804; 87899; 93005; 93010; 94640; 94660; 97116-GP; 97161-GP; 99285-25